=== PATIENT | male | born 1975 | race Two or more races ===

== ENCOUNTER 2018-12-30 12:14 | Emergency (ER) | payer BC ==
[2018-12-30] MEDS ORDERED: SODIUM CHLORIDE 0.9% 1,000 ML IV STA ×2 (13:57)
[2018-12-30 14:52] LABS: Basophils # (A) 0.1 k/uL (0-0.2); Basophils % (A) 1 %; Eosinophils # (A) 0.2 k/uL (0-0.7); Eosinophils % (A) 2 %; HCT 20.1 % (39.0-53.0); Hyperchromasia Slight; Lymphocytes # (A) 0.6 k/uL (1.0-4.8); Lymphocytes % (A) 7 %; MCH 28.9 pg (25.0-35.0); MCHC 34.5 g/dL (31.0-37.0); MCV 83.9 fL (80.0-100.0); Mean Platelet Volume 7.2; Monocytes # (A) 0.6 k/uL (0-1.0); Monocytes % (A) 7 %; Neutrophils # (A) 7.2 k/uL (1.3-7.7); Neutrophils % (A) 83 %; Platelet Count 279 k/uL (150-450); Poikilocytosis Slight; RDW 15.2 % (11.5-15.5); WBC 8.7 k/uL (3.8-10.6)
[2018-12-30 15:00] LABS: HGB 6.9 gm/dL (13.0-17.5)
[2018-12-30 15:02] LABS: Albumin 3.7 g/dL (3.5-5.0); Calcium 9.2 mg/dL (8.4-10.2); Magnesium 2.2 mg/dL (1.6-2.3); Potassium 4.5 mmol/L (3.5-5.1); Total Protein 6.4 g/dL (6.3-8.2)
[2018-12-30 15:07] LABS: Partial Thromboplastin Time 35.5 sec (22.0-30.0); Prothrombin Time 10.8 sec (9.0-12.0)
[2018-12-30 15:10] VITALS: RESP 16
--- NOTE | 2018-12-30 15:18 | XR ---
EXAMINATION TYPE: XR chest 2V DATE OF EXAM: 12/30/2018 COMPARISON: None HISTORY: 43-year-old male with chest pain TECHNIQUE: PA and lateral views FINDINGS: Left-sided double-lumen hemodialysis catheter with tips at the mid SVC level. Median sternotomy wires . Annuloplasty rings. Heart borderline enlarged. Diffuse interstitial and vascular densities within s mall effusions and posterior basilar patchy opacity. Embolization coils in the left upper quadrant. IMPRESSION: 1. Correlate for CHF weight summary vascular congestion. 2. Small effusions with adjacent atelectasis and/or consolidation.
--- NOTE | 2018-12-30 15:34 | ED ---
General Adult HPI <Wilner Pina - Last Filed: 12/30/18 16:34> - General Source: patient, RN notes reviewed, old records reviewed Mode of arrival: ambulatory Limitations: no limitations <Michelle Booth - Last Filed: 12/30/18 17:10> - General Chief complaint: Recheck/Abnormal Lab/Rx Stated complaint: Sent for blood transfusion Time Seen by Provider: 12/30/18 13:34 - History of Present Illness Initial comments: Patient is a 43-year-old male with extensive past medical history. He presents today was 2. of low hemoglobin after having his dialysis testing completed yesterday. He was gets dialysis Thursday and Thursday. 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 He had his mitral valve replaced on November 16 this past year, 2 months ago. Patient reports he's had some consultation since that time. Patient reports that he was admitted to [facility] oxalate one week ago for low hemoglobin. He was evaluated and had colonoscopy and upper endoscopy and had notification of the blood loss besides having it to be postsurgical. Patient reports that he's had no symptoms associated with his anemia at this time. Denies any chest pain or shortness of breath. (Michelle Booth) - Related Data Home Medications Medication Instructions Recorded Confirmed B Complex & C No.20/Folic Acid 1 mg PO DAILY 12/30/18 12/30/18 [Nephrocaps Softgel] Bumetanide 2 mg PO DAILY PRN 12/30/18 12/30/18 Darbepoetin Thompson [Aranesp] 25 mcg SQ DAILY PRN 12/30/18 12/30/18 Ferrous Sulfate [Feosol] 325 mg PO DAILY 12/30/18 12/30/18 Folic Acid 1 mg PO DAILY 12/30/18 12/30/18 Levothyroxine Sodium [Synthroid] 137 mcg PO DAILY 12/30/18 12/30/18 Magnesium Oxide [Mag-Ox] 800 mg PO DAILY 12/30/18 12/30/18 Sucralfate [Carafate] 1 gram PO QID 12/30/18 12/30/18 levETIRAcetam 500 mg PO BID 12/30/18 12/30/18 Allergies Allergy/AdvReac Type Severity Reaction Status Date / Time No Known Allergies Allergy Verified 12/30/18 13:59 Review of Systems ROS Other: All systems not noted in ROS Statement are negative. <Wilner Pina - Last Filed: 12/30/18 16:34> ROS Other: All systems not noted in ROS Statement are negative. <Michelle Booth - Last Filed: 12/30/18 17:10> ROS Statement: Those systems with pertinent positive or pertinent negative responses have been documented in the HPI. 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, and pt had mitral valve repair and then had renal and liver insufficiency after surgery History of Any Multi-Drug Resistant Organisms: None Reported Additional Past Surgical History / Comment(s): mitral valve repair Past Psychological History: No Psychological Hx Reported Smoking Status: Never smoker Past Alcohol Use History: None Reported Past Drug Use History: None Reported <LeobardoMichelle - Last Filed: 12/30/18 17:10> General Exam Limitations: no limitations General appearance: alert, in no apparent distress Head exam: Present: atraumatic, normocephalic, normal inspection Eye exam: Present: normal appearance, PERRL, EOMI. Absent: scleral icterus, conjunctival injection, periorbital swelling ENT exam: Present: normal exam, mucous membranes moist Neck exam: Present: normal inspection. Absent: tenderness, meningismus, lymphadenopathy <Michelle Booth - Last Filed: 12/30/18 17:10> - General Exam Comments Initial Comments: is a pale 43-year-old male. No symptoms at this time mother is in no distress. (Michelle Booth) Course <Wilner Pina - Last Filed: 12/30/18 16:34> Vital Signs 12/30/18 12/30/18 12/30/18 12:28 14:30 16:18 Temperature 97.8 F 97.9 F Pulse Rate 109 H 72 97 Respiratory 18 16 16 Rate Blood Pressure 125/75 161/110 122/65 O2 Sat by Pulse 100 98 100 Oximetry - Reevaluation(s) Reevaluation #1: 12/30/18 16:34 PA supervision: I proceeded [id number] evaluation the patient did discuss the findings with him and his family. He does present with complains of anemia. He was instructed by his physician or come the hospital for evaluation and possible blood transfusion. He was found to be anemic he will be receiving a blood transfusion no other issues or concerns at this time. He will be discharged after the transfusion. He does have follow-up with multiple physicians. (Wilner Pina) Medical Decision Making - Lab Data Result diagrams: 12/30/18 14:41 12/30/18 14:40 <Wilner Pina - Last Filed: 12/30/18 16:34> - Lab Data Result diagrams: 12/30/18 14:41 12/30/18 14:40 <Michelle Booth - Last Filed: 12/30/18 17:10> - Lab Data Lab Results 12/30/18 12/30/18 12/30/18 Range/Units 14:40 14:40 14:40 WBC (3.8-10.6) k/uL RBC (4.30-5.90) m/uL Hgb (13.0-17.5) gm/dL Hct (39.0-53.0) % MCV (80.0-100.0) fL MCH (25.0-35.0) pg MCHC (31.0-37.0) g/dL RDW (11.5-15.5) % Plt Count (150-450) k/uL Neutrophils % % Lymphocytes % % Monocytes % % Eosinophils % % Basophils % % Neutrophils # (1.3-7.7) k/uL Lymphocytes # (1.0-4.8) k/uL Monocytes # (0-1.0) k/uL Eosinophils # (0-0.7) k/uL Basophils # (0-0.2) k/uL Hyperchromasia Poikilocytosis PT 10.8 (9.0-12.0) sec INR 1.0 (<1.2) APTT 35.5 H (22.0-30.0) sec Sodium 140 (137-145) mmol/L Potassium 4.5 (3.5-5.1) mmol/L Chloride 98 (98-107) mmol/L Carbon Dioxide 33 H (22-30) mmol/L Anion Gap 9 mmol/L BUN 33 H (9-20) mg/dL Creatinine 2.26 H (0.66-1.25) mg/dL Est GFR (CKD-EPI)AfAm 39 (>60 ml/min/1.73 sqM) Est GFR (CKD-EPI)NonAf 34 (>60 ml/min/1.73 sqM) Glucose 81 (74-99) mg/dL Calcium 9.2 (8.4-10.2) mg/dL Magnesium 2.2 (1.6-2.3) mg/dL Total Bilirubin 2.0 H (0.2-1.3) mg/dL AST 20 (17-59) U/L ALT 19 L (21-72) U/L Alkaline Phosphatase 97 (38-126) U/L Troponin I (0.000-0.034) ng/mL Total Protein 6.4 (6.3-8.2) g/dL Albumin 3.7 (3.5-5.0) g/dL Blood Type A Positive Blood Type Confirm Blood Type Recheck No Previous Record Bld Type Recheck Status CABO Indicated Antibody Screen NEGATIVE Crossmatch See Detail Spec Expiration Date 01/02/2019 - 233912/30/18 12/30/18 12/30/18 Range/Units 14:40 14:41 14:55 WBC 8.7 (3.8-10.6) k/uL RBC 2.40 L (4.30-5.90) m/uL Hgb 6.9 L* (13.0-17.5) gm/dL Hct 20.1 L (39.0-53.0) % MCV 83.9 (80.0-100.0) fL MCH 28.9 (25.0-35.0) pg MCHC 34.5 (31.0-37.0) g/dL RDW 15.2 (11.5-15.5) % Plt Count 279 (150-450) k/uL Neutrophils % 83 % Lymphocytes % 7 % Monocytes % 7 % Eosinophils % 2 % Basophils % 1 % Neutrophils # 7.2 (1.3-7.7) k/uL Lymphocytes # 0.6 L (1.0-4.8) k/uL Monocytes # 0.6 (0-1.0) k/uL Eosinophils # 0.2 (0-0.7) k/uL Basophils # 0.1 (0-0.2) k/uL Hyperchromasia Slight Poikilocytosis Slight PT (9.0-12.0) sec INR (<1.2) APTT (22.0-30.0) sec Sodium (137-145) mmol/L Potassium (3.5-5.1) mmol/L Chloride (98-107) mmol/L Carbon Dioxide (22-30) mmol/L Anion Gap mmol/L BUN (9-20) mg/dL Creatinine (0.66-1.25) mg/dL Est GFR (CKD-EPI)AfAm (>60 ml/min/1.73 sqM) Est GFR (CKD-EPI)NonAf (>60 ml/min/1.73 sqM) Glucose (74-99) mg/dL Calcium (8.4-10.2) mg/dL Magnesium (1.6-2.3) mg/dL Total Bilirubin (0.2-1.3) mg/dL AST (17-59) U/L ALT (21-72) U/L Alkaline Phosphatase (38-126) U/L Troponin I <0.012 (0.000-0.034) ng/mL Total Protein (6.3-8.2) g/dL Albumin (3.5-5.0) g/dL Blood Type Blood Type Confirm A Positive Blood Type Recheck Bld Type Recheck Status Antibody Screen Crossmatch Spec Expiration Date Disposition <Wilner Pina - Last Filed: 12/30/18 16:34> Is patient prescribed a controlled substance at d/c from ED?: No Time of Disposition: 17:10 <Michelle Booth - Last Filed: 12/30/18 17:10> Clinical Impression: Anemia Disposition: HOME SELF-CARE Condition: Good Instructions (If sedation given, give patient instructions): Anemia (ED), Blood Transfusion (DC) Additional Instructions: Follow up with PCP and other appointments. Please return to ED if any alarming signs or symptoms occur. Referrals: Kelly Manzo MD [Primary Care Provider] - 1-2 days
[2018-12-30 19:19] VITALS: BP 120/57; PULSE 100; TEMP 98.5
== END 2018-12-30 19:26 | disposition home or self-care (01) ==
LOC: EC 12:14
DX: N18.9 Chronic kidney disease, unspecified (principal); D63.1 Anemia in chronic kidney disease; N99.0 Postprocedural (acute) (chronic) kidney failure; Z79.890 Hormone replacement therapy; Z79.899 Other long term (current) drug therapy; Z99.2 Dependence on renal dialysis; Z95.2 Presence of prosthetic heart valve; Z86.73 Personal history of transient ischemic attack (TIA), and cerebral infarction without residual deficits; Z87.19 Personal history of other diseases of the digestive system; Z86.79 Personal history of other diseases of the circulatory system; Z98.890 Other specified postprocedural states
CPT/HCPCS: 36415; 93005; 86900; 86901; 80053; 83735; 84484; 85025; 85610; 85730; 86850; 86920; 71046; 99284; 96360; P9016

== ENCOUNTER → 2019-01-05 | Outpatient (CLI) | payer BC | END | disposition home or self-care (01) | LOC: LABWHC1 15:26 | PROVIDERS: ATTEND Nurse Practitioner Family | DX: Z53.9 Procedure and treatment not carried out, unspecified reason (principal) | CPT/HCPCS: 86850; 86900; 86901; 86920 ==

== ENCOUNTER 2019-01-29 05:11 | Observation (INO) | payer BC ==
--- NOTE | 2019-01-29 05:40 | ED ---
Recheck HPI - General Source: patient Mode of arrival: ambulatory Limitations: no limitations - History of Present Illness Complaint: abnormal lab -: hour(s) Initial Visit For: other Returns Today for: Called Because of Abnormal Lab/Test Symptoms Since Prior Visit: no new symptoms Context: called for abnormal lab result Associated Symptoms: none <Kd Gonzales - Last Filed: 01/29/19 06:45> <Wilner Pina - Last Filed: 01/29/19 13:07> - General Chief Complaint: Recheck/Abnormal Lab/Rx Stated Complaint: sent by dr Aldridge-needs blood Time Seen by Provider: 01/29/19 05:24 - History of Present Illness Initial Comments: This patient is a 43-year-old man who presents after receiving a call that his hemoglobin was low. Patient has history of end-stage renal disease on hemodialysis after he had developed endocarditis. Patient states that he had his routine dialysis yesterday proximal 24 hrs. ago. He states that he received a call yesterday informing him that his hemoglobin was 6.9 and he should proceed to the hospital for transfusion. The patient states he is not having any symptoms. No dyspnea, diaphoresis, palpitations, lightheadedness or syncope. He has not noted any blood or dark tarry stools. (Kd Gonzales) - Related Data Home Medications Medication Instructions Recorded Confirmed B Complex & C No.20/Folic Acid 1 mg PO DAILY 12/30/18 01/29/19 [Nephrocaps Softgel] Darbepoetin Thompson [Aranesp] 25 mcg SQ Q7D PRN 12/30/18 01/29/19 Ferrous Sulfate [Feosol] 325 mg PO DAILY 12/30/18 01/29/19 Folic Acid 1 mg PO DAILY 12/30/18 01/29/19 Levothyroxine Sodium [Synthroid] 137 mcg PO DAILY 12/30/18 01/29/19 Magnesium Oxide [Mag-Ox] 800 mg PO BID 12/30/18 01/29/19 Sucralfate [Carafate] 1 gram PO QID 12/30/18 01/29/19 levETIRAcetam 500 mg PO BID 12/30/18 01/29/19 Aspirin EC [Ecotrin] 325 mg PO DAILY 01/29/19 01/29/19 Calcium Acetate [Phoslo] 667 mg PO TID 01/29/19 01/29/19 Melatonin 9 mg PO HS 01/29/19 01/29/19 Omeprazole 20 mg PO QAM 01/29/19 01/29/19 Sennosides-Docusate Sodium 1 tab PO BID 01/29/19 01/29/19 [Senokot-S] Allergies Allergy/AdvReac Type Severity Reaction Status Date / Time No Known Allergies Allergy Verified 01/29/19 08:52 Review of Systems ROS Other: All systems not noted in ROS Statement are negative. Constitutional: Denies: fever, chills Respiratory: Denies: cough, dyspnea Cardiovascular: Denies: chest pain, palpitations, syncope Gastrointestinal: Denies: abdominal pain, vomiting, diarrhea Musculoskeletal: Denies: back pain Skin: Denies: rash Neurological: Denies: headache <JanetKd - Last Filed: 01/29/19 06:45> ROS Other: All systems not noted in ROS Statement are negative. <Wilner Pina - Last Filed: 01/29/19 13:07> ROS Statement: Those systems with pertinent positive or pertinent negative responses have been documented in the HPI. 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 Absent: scleral icterus, conjunctival injection ENT exam: Present: normal oropharynx Respiratory exam: Present: normal lung sounds bilaterally. Absent: respiratory distress, wheezes, rales, rhonchi, stridor Cardiovascular Exam: Present: regular rate, normal rhythm, normal heart sounds, clicks. Absent: systolic murmur, diastolic murmur, rubs, gallop GI/Abdominal exam: Present: soft. Absent: distended, tenderness, guarding, rebound, rigid, mass Extremities exam: Present: normal inspection, normal capillary refill. Absent: pedal edema, calf tenderness Neurological exam: Present: alert Skin exam: Present: warm, dry, intact, pallor. Absent: rash <Kd Gonzales - Last Filed: 01/29/19 06:45> Course Vital Signs 01/29/19 01/29/19 01/29/19 05:18 08:57 09:06 Temperature 97.5 F L 98.0 F Pulse Rate 105 H 88 88 Respiratory 20 18 16 Rate Blood Pressure 111/54 112/61 110/60 O2 Sat by Pulse 100 100 100 Oximetry 01/29/19 01/29/19 10:00 11:00 Temperature Pulse Rate 89 84 Respiratory 16 16 Rate Blood Pressure 112/57 101/50 O2 Sat by Pulse 100 100 Oximetry Medical Decision Making - Lab Data Result diagrams: 01/29/19 05:46 01/29/19 05:46 <Kd Gonzales - Last Filed: 01/29/19 06:45> - Lab Data Result diagrams: 01/29/19 05:46 01/29/19 05:46 <Wilner Pina - Last Filed: 01/29/19 13:07> - Medical Decision Making The patient was originally 10 and evaluated was receive one unit of blood be discharged. Due to the antibody titers the patient blood red crosses having difficulty crossmatch is blood at this time I did discuss the case with him and with Dr. Escobar patient will be admitted for observation. (Wilner Pina) - Lab Data Lab Results 01/29/19 01/29/19 Range/Units 05:46 05:46 WBC 6.2 (3.8-10.6) k/uL RBC 2.33 L (4.30-5.90) m/uL Hgb 7.0 L (13.0-17.5) gm/dL Hct 20.3 L (39.0-53.0) % MCV 86.8 (80.0-100.0) fL MCH 30.1 (25.0-35.0) pg MCHC 34.7 (31.0-37.0) g/dL RDW 17.2 H (11.5-15.5) % Plt Count 149 L (150-450) k/uL Neutrophils % 77 % Lymphocytes % 12 % Monocytes % 6 % Eosinophils % 3 % Basophils % 1 % Neutrophils # 4.7 (1.3-7.7) k/uL Lymphocytes # 0.7 L (1.0-4.8) k/uL Monocytes # 0.4 (0-1.0) k/uL Eosinophils # 0.2 (0-0.7) k/uL Basophils # 0.1 (0-0.2) k/uL Hyperchromasia Slight Poikilocytosis Moderate Anisocytosis Slight Sodium 139 (137-145) mmol/L Potassium 3.9 (3.5-5.1) mmol/L Chloride 95 L (98-107) mmol/L Carbon Dioxide 35 H (22-30) mmol/L Anion Gap 9 mmol/L BUN 30 H (9-20) mg/dL Creatinine 2.41 H (0.66-1.25) mg/dL Est GFR (CKD-EPI)AfAm 36 (>60 ml/min/1.73 sqM) Est GFR (CKD-EPI)NonAf 31 (>60 ml/min/1.73 sqM) Glucose 168 H (74-99) mg/dL Calcium 9.8 (8.4-10.2) mg/dL Disposition Is patient prescribed a controlled substance at d/c from ED?: No <Kd Gonzales - Last Filed: 01/29/19 06:45> <Wilner Pina - Last Filed: 01/29/19 13:07> Clinical Impression: Anemia Disposition: ADMITTED IP TO THIS HOSP Condition: Stable Instructions (If sedation given, give patient instructions): Anemia (ED) Referrals: None,Stated [Primary Care Provider] - 1-2 days
[2019-01-29 06:02] LABS: Anisocytosis Slight; Basophils # (A) 0.1 k/uL (0-0.2); Basophils % (A) 1 %; Eosinophils # (A) 0.2 k/uL (0-0.7); Eosinophils % (A) 3 %; HCT 20.3 % (39.0-53.0); Hyperchromasia Slight; Lymphocytes # (A) 0.7 k/uL (1.0-4.8); Lymphocytes % (A) 12 %; MCH 30.1 pg (25.0-35.0); MCHC 34.7 g/dL (31.0-37.0); MCV 86.8 fL (80.0-100.0); Mean Platelet Volume 7.3; Monocytes # (A) 0.4 k/uL (0-1.0); Monocytes % (A) 6 %; Neutrophils # (A) 4.7 k/uL (1.3-7.7); Neutrophils % (A) 77 %; Platelet Count 149 k/uL (150-450); Poikilocytosis Moderate; RBC 2.33 m/uL (4.30-5.90); RDW 17.2 % (11.5-15.5); WBC 6.2 k/uL (3.8-10.6)
[2019-01-29 06:16] LABS: Calcium 9.8 mg/dL (8.4-10.2); Potassium 3.9 mmol/L (3.5-5.1)
[2019-01-29] MEDS ORDERED: NALOXONE 0.4 MG/ML 1 ML VIAL IV PRN (13:07)
[2019-01-29] MEDS ORDERED: DARBEPOETIN ALFA 25 MCG/0.42 ML SYRINGE SQ PRN (13:08)
[2019-01-29] MEDS: CALCIUM ACETATE 667 MG TAB PO SCH (16:59)
[2019-01-29] MEDS: SUCRALFATE 1 GM TAB PO SCH ×2 (16:59→21:38)
[2019-01-29 17:11] LABS: Glucose,Whole Blood 168 mg/dL (75-99)
--- NOTE | 2019-01-29 17:42 | P.HPIM ---
History of Present Illness H&P Date: 01/29/19 Chief Complaint: Blood transfusion 43-year-old male with PMH of endocarditis post mitral valve repair in September at [facility] complicated by kidney and liver failure, LVAD placement and GI bleed from heparin needing coiling presents the ED after being called from his nephrology clinic and told to come to the hospital to receive blood for a low hemoglobin of 6.8. Patient has no complaints. He gets dialysis on a Thursday schedule. His rfid developer is Dr. Aldridge. He denies any headaches, lower extremity edema, nausea or vomiting, fever or chills, cough, chest pain or shortness of breath, palpitations, changes in urination or bowel habits. No changes in appetite or weight. Patient denies any dizziness, numbness/weakness/tingling of the extremities. He does not smoke cigarettes. He denies any alcohol or drug use. In the ED, vital signs were stable. CBC showed hemoglobin of 7 and platelet count 149. CMP showed chloride of 95, bicarbonate of 35, BUN 30, creatinine 2.41, glucose 168. Patient is admitted for anemia requiring 1 unit of PRBC. Review of Systems Pertinent positives and negatives as discussed in HPI, a complete review of systems was performed and all other systems are negative. 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, and pt had mitral valve repair and then had renal and liver insufficiency after surgery; [facility] History of Any Multi-Drug Resistant Organisms: None Reported Additional Past Surgical History / Comment(s): Mitral valve repair July 2018; artery repair during mitral valve repair Past Anesthesia/Blood Transfusion Reactions: No Reported Reaction Past Psychological History: No Psychological Hx Reported Smoking Status: Never smoker Past Alcohol Use History: None Reported Past Drug Use History: None Reported Medications and Allergies Home Medications Medication Instructions Recorded Confirmed Type B Complex & C No.20/Folic Acid 1 mg PO DAILY 12/30/18 01/29/19 History [Nephrocaps Softgel] Darbepoetin Thompson [Aranesp] 25 mcg SQ Q7D PRN 12/30/18 01/29/19 History Ferrous Sulfate [Feosol] 325 mg PO DAILY 12/30/18 01/29/19 History Folic Acid 1 mg PO DAILY 12/30/18 01/29/19 History Levothyroxine Sodium [Synthroid] 137 mcg PO DAILY 12/30/18 01/29/19 History Magnesium Oxide [Mag-Ox] 800 mg PO BID 12/30/18 01/29/19 History Sucralfate [Carafate] 1 gram PO QID 12/30/18 01/29/19 History levETIRAcetam 500 mg PO BID 12/30/18 01/29/19 History Aspirin EC [Ecotrin] 325 mg PO DAILY 01/29/19 01/29/19 History Calcium Acetate [Phoslo] 667 mg PO TID 01/29/19 01/29/19 History Melatonin 9 mg PO HS 01/29/19 01/29/19 History Omeprazole 20 mg PO QAM 01/29/19 01/29/19 History Sennosides-Docusate Sodium 1 tab PO BID 01/29/19 01/29/19 History [Senokot-S] Allergies Allergy/AdvReac Type Severity Reaction Status Date / Time No Known Allergies Allergy Verified 01/29/19 08:52 Physical Exam Vitals: Vital Signs Temp Pulse Pulse Resp BP BP Pulse Ox 01/29/19 14:30 97.0 F L 94 20 111/55 100 01/29/19 13:00 98.2 F 86 18 108/54 100 01/29/19 12:00 86 18 103/48 100 01/29/19 11:00 84 16 101/50 100 01/29/19 10:00 89 16 112/57 100 01/29/19 09:06 88 16 110/60 100 01/29/19 08:57 98.0 F 88 18 112/61 100 01/29/19 05:18 97.5 F L 105 H 20 111/54 100 Intake and Output 01/29/19 01/29/19 01/29/19 06:59 14:59 22:59 Other: Weight 77.111 kg General: [non toxic], [no distress], [appears at stated age] Derm: [warm], [dry] Head: [atraumatic], [normocephalic], [symmetric] Eyes: [EOMI], [no lid lag], [anicteric sclera] Mouth: [no lip lesion], [mucus membranes moist] Cardiovascular: [S1S2 reg], [no murmur], [positive posterior tibial pulse bilateral], [left-sided chest port] Lungs: [CTA bilateral], [no rhonchi, no rales] , [no accessory muscle use] Abdominal: [soft], [ nontender to palpation], [no guarding], [no appreciable organomegaly] Ext: [no gross muscle atrophy], [no edema], [no contractures] Neuro: [ CN II-XI grossly intact], [no focal neuro deficits] Psych: [Alert], [oriented], [appropriate affect] Results CBC & Chem 7: 01/29/19 05:46 01/29/19 05:46 Labs: Abnormal Lab Results - Last 24 Hours (Table) 01/29/19 01/29/19 01/29/19 Range/Units 05:46 05:46 10:00 RBC 2.33 L (4.30-5.90) m/uL Hgb 7.0 L (13.0-17.5) gm/dL Hct 20.3 L (39.0-53.0) % RDW 17.2 H (11.5-15.5) % Plt Count 149 L (150-450) k/uL Lymphocytes # 0.7 L (1.0-4.8) k/uL Chloride 95 L (98-107) mmol/L Carbon Dioxide 35 H (22-30) mmol/L BUN 30 H (9-20) mg/dL Creatinine 2.41 H (0.66-1.25) mg/dL Glucose 168 H (74-99) mg/dL POC Glucose (mg/dL) (75-99) mg/dL Crossmatch See Detail 01/29/19 Range/Units 17:09 RBC (4.30-5.90) m/uL Hgb (13.0-17.5) gm/dL Hct (39.0-53.0) % RDW (11.5-15.5) % Plt Count (150-450) k/uL Lymphocytes # (1.0-4.8) k/uL Chloride (98-107) mmol/L Carbon Dioxide (22-30) mmol/L BUN (9-20) mg/dL Creatinine (0.66-1.25) mg/dL Glucose (74-99) mg/dL POC Glucose (mg/dL) 168 H (75-99) mg/dL Crossmatch Thrombosis Risk Factor Assmnt - Choose All That Apply Each Factor Represents 1 point: Age 41-60 years Thrombosis Risk Factor Assessment Total Risk Factor Score: 1 Thrombosis Risk Factor Assessment Level: Low Risk Assessment and Plan Assessment: Assessment and plan Anemia with hemoglobin of 7 likely from prolonged hospitalization in September complicated with GI bleed History of endocarditis with mitral valve repair Thrombocytopenia ESRD on HD Thursday schedule Hemoglobin 7.0. Normocytic. Likely from prolonged hospitalization in September that was complicated by GI bleed. Plans: 1 unit PRBC. Continue ferrous sulfate. Repeat CBC after transfusion. Platelet count 149. Likely due to ESRD. No signs of bleeding. Plans: Repeat CBC after transfusion. Plans: Consult nephrology for HD on a Thursday schedule. DVT prophylaxis: [SCD boots] Discussed with: [Patient and mother] Anticipated discharge: [Home] Anticipated discharge place: [Tomorrow] A total of [30] minutes was spent on the care of this complex patient more than 50% of the time was spent in counseling and care coordination. Patient reiterates wanting to remain full code at this time. Patient names his mom Reina decision-maker indicates that he can't make decisions for himself.
[2019-01-29 20:44] LABS: Glucose,Whole Blood 138 mg/dL (75-99)
[2019-01-29] MEDS ORDERED: MELATONIN 3 MG TABLET PO SCH (21:00)
[2019-01-29] MEDS: MAGNESIUM OXIDE 400 MG TAB PO SCH (21:37)
[2019-01-29] MEDS: levETIRAcetam 500 MG TAB PO SCH (21:38)
[2019-01-29] MEDS: SENNOSIDES-DOCUSATE SODIUM 1 EACH TAB PO SCH (21:38)
[2019-01-30 04:52] VITALS: BP 102/55; PULSE 84; RESP 18; TEMP 98.3
[2019-01-30] MEDS ORDERED: LEVOTHYROXINE 137 MCG TAB PO SCH (06:30)
[2019-01-30 07:02] LABS: Glucose,Whole Blood 90 mg/dL (75-99)
[2019-01-30] MEDS ORDERED: PANTOPRAZOLE 40 MG TABLET PO SCH (07:30)
[2019-01-30] MEDS: SENNOSIDES-DOCUSATE SODIUM 1 EACH TAB PO SCH (07:57)
[2019-01-30] MEDS: SUCRALFATE 1 GM TAB PO SCH (07:57)
[2019-01-30] MEDS: CALCIUM ACETATE 667 MG TAB PO SCH (07:57)
[2019-01-30] MEDS: MAGNESIUM OXIDE 400 MG TAB PO SCH (07:57)
[2019-01-30] MEDS: levETIRAcetam 500 MG TAB PO SCH (07:58)
--- NOTE | 2019-01-30 08:57 | P.DS ---
Providers Date of admission: 01/29/19 13:07 Expected date of discharge: 01/30/19 Attending physician: Benigno Escobar MD Primary care physician: Stated None Hospital Course: 43-year-old male with PMH of endocarditis post mitral valve repair in September at [facility] complicated by kidney and liver failure, LVAD placement and GI bleed from heparin needing coiling presents the ED after being called from his nephrology clinic and told to come to the hospital to receive blood for a low hemoglobin of 6.8. Patient has no complaints. He gets dialysis on a Thursday schedule. His elevated work platform operator is Dr. Aldridge. He denies any headaches, lower extremity edema, nausea or vomiting, fever or chills, cough, chest pain or shortness of breath, palpitations, changes in urination or bowel habits. No changes in appetite or weight. Patient denies any dizziness, numbness/weakness/tingling of the extremities. He does not smoke cigarettes. He denies any alcohol or drug use. In the ED, vital signs were stable. CBC showed hemoglobin of 7 and platelet count 149. CMP showed chloride of 95, bicarbonate of 35, BUN 30, creatinine 2.41, glucose 168. Patient is admitted for anemia requiring 1 unit of PRBC. Patient denied any melena. Patient denies any hematochezia or hematuria. Patient denies any bright red blood per rectum. 1 unit of PRBC was transfused without any complications. Repeat hemoglobin is ordered prior to discharge. Patient seen and examined. No acute events overnight. patient denies any complications from blood transfusions. He denies any chest pain, shortness of breath or palpitations. No nausea or vomiting. No fever or chills. General: [non toxic], [no distress], [appears at stated age] Derm: [warm], [dry] Head: [atraumatic], [normocephalic], [symmetric] Eyes: [EOMI], [no lid lag], [anicteric sclera] Mouth: [no lip lesion], [mucus membranes moist] Cardiovascular: [S1S2 reg], [no murmur], [positive posterior tibial pulse bilateral], [left-sided chest port] Lungs: [CTA bilateral], [no rhonchi, no rales] , [no accessory muscle use] Abdominal: [soft], [ nontender to palpation], [no guarding], [no appreciable organomegaly] Ext: [no gross muscle atrophy], [no edema], [no contractures] Neuro: [no focal neuro deficits] Psych: [Alert], [oriented], [appropriate affect] Assessment and plan Anemia with hemoglobin of 7 likely from prolonged hospitalization in September complicated with GI bleed History of endocarditis with mitral valve repair Thrombocytopenia ESRD on HD Thursday schedule Hemoglobin 7.0. Normocytic. Likely from prolonged hospitalization in September that was complicated by GI bleed. Plans: 1 unit PRBC. Continue ferrous sulfate. Repeat CBC after transfusion. Platelet count 149. Likely due to ESRD. No signs of bleeding. Plans: Repeat CBC after transfusion. Plans: Consult nephrology for HD on a Thursday schedule. [Repeat hemoglobin pending. DC after CBC returns.] Patient Condition at Discharge: Stable Plan - Discharge Summary New Discharge Prescriptions: Continue Magnesium Oxide [Mag-Ox] 800 mg PO BID Levothyroxine Sodium [Synthroid] 137 mcg PO DAILY levETIRAcetam 500 mg PO BID Folic Acid 1 mg PO DAILY Ferrous Sulfate [Iron (65 MG Elemental)] 325 mg PO DAILY Darbepoetin Thompson [Aranesp] 25 mcg SQ Q7D PRN PRN Reason: DIALYSIS DAYS Sucralfate [Carafate] 1 gram PO QID B Complex & C No.20/Folic Acid [Nephrocaps Softgel] 1 mg PO DAILY Calcium Acetate [PhosLo] 667 mg PO TID Sennosides-Docusate Sodium [Senokot-S] 1 tab PO BID Omeprazole 20 mg PO QAM Melatonin 9 mg PO HS Aspirin EC [Ecotrin] 325 mg PO DAILY Discharge Medication List B Complex & C No.20/Folic Acid [Nephrocaps Softgel] 1 mg PO DAILY 12/30/18 [History] Darbepoetin Thompson [Aranesp] 25 mcg SQ Q7D PRN 12/30/18 [History] Ferrous Sulfate [Iron (65 MG Elemental)] 325 mg PO DAILY 12/30/18 [History] Folic Acid 1 mg PO DAILY 12/30/18 [History] Levothyroxine Sodium [Synthroid] 137 mcg PO DAILY 12/30/18 [History] Magnesium Oxide [Mag-Ox] 800 mg PO BID 12/30/18 [History] Sucralfate [Carafate] 1 gram PO QID 12/30/18 [History] levETIRAcetam 500 mg PO BID 12/30/18 [History] Aspirin EC [Ecotrin] 325 mg PO DAILY 01/29/19 [History] Calcium Acetate [PhosLo] 667 mg PO TID 01/29/19 [History] Melatonin 9 mg PO HS 01/29/19 [History] Omeprazole 20 mg PO QAM 01/29/19 [History] Sennosides-Docusate Sodium [Senokot-S] 1 tab PO BID 01/29/19 [History] Follow up Appointment(s)/Referral(s): None,Stated [Primary Care Provider] - 1-2 days Carlos Aldridge DO [STAFF PHYSICIAN] - 1 Week Patient Instructions/Handouts: Anemia (ED) Activity/Diet/Wound Care/Special Instructions: diet: Renal Follow-up PCP within 3 days of discharge. Follow-up nephrology within 1 week of discharge. Discharge Disposition: HOME SELF-CARE
[2019-01-30] MEDS ORDERED: FOLIC ACID 1 MG TAB PO SCH (09:00)
[2019-01-30] MEDS ORDERED: FOLIC ACID-VIT B COMPLEX-VIT C 1 CAP PO SCH (09:00)
[2019-01-30] MEDS ORDERED: ASPIRIN 325 MG TAB PO SCH (09:00)
[2019-01-30] MEDS ORDERED: FERROUS SULFATE 325 MG TAB PO SCH (09:00)
[2019-01-30 09:30] LABS: Anisocytosis Slight; HCT 21.1 % (39.0-53.0); HGB 7.4 gm/dL (13.0-17.5); MCH 30.6 pg (25.0-35.0); MCHC 34.8 g/dL (31.0-37.0); Mean Platelet Volume 6.4; Platelet Count 136 k/uL (150-450); Poikilocytosis Moderate; RDW 16.7 % (11.5-15.5); WBC 5.8 k/uL (3.8-10.6)
== END 2019-01-30 10:30 | disposition home or self-care (01) ==
LOC: EC 05:11 → 4MS4W 13:07
PROVIDERS: ADMIT Family Medicine; ATTEND Family Medicine
DX: D64.9 Anemia, unspecified (principal); N18.6 End stage renal disease; K72.90 Hepatic failure, unspecified without coma; D69.6 Thrombocytopenia, unspecified; Z99.2 Dependence on renal dialysis; Z79.890 Hormone replacement therapy; Z79.899 Other long term (current) drug therapy; Z79.82 Long term (current) use of aspirin; Z86.73 Personal history of transient ischemic attack (TIA), and cerebral infarction without residual deficits; Z86.79 Personal history of other diseases of the circulatory system
CPT/HCPCS: 99284; 36415; 86900; 86901; 80048; 85025; 85027; 86850; 86920; 86870 ×2; 86880 ×2; 86885; G0378 ×2; P9016

== ENCOUNTER 2019-01-31 10:55 | Inpatient (IN) | payer BC ==
[2019-01-31] MEDS ORDERED: SODIUM CHLORIDE 0.9% 1,000 ML IV STA (11:28)
[2019-01-31] MEDS ORDERED: PANTOPRAZOLE 40 MG/10 ML VIAL IVP STA (11:28)
[2019-01-31] MEDS ORDERED: OCTREOTIDE 100 MCG/ML INJ IVP STA (11:28)
[2019-01-31] MEDS ORDERED: ONDANSETRON 4 MG/2 ML VIAL IVP STA (11:28)
--- NOTE | 2019-01-31 11:59 | ED ---
GI Bleed HPI - General Source: patient, RN notes reviewed Mode of arrival: wheelchair Limitations: no limitations <Chapin Chris - Last Filed: 01/31/19 13:32> <Jake Edwards - Last Filed: 01/31/19 14:10> - General Chief complaint: GI Bleed Stated complaint: Puking blood Time Seen by Provider: 01/31/19 11:13 - History of Present Illness Initial comments: This a 43-year-old male presents emergency Department chief complaint of hematemesis. Patient states that he was here 4 days ago for a transfusion secondary anemia. Patient states he received a blood and states he went home states that he felt okay but then he slowly developed pain last night and worsening pain is epigastric region which she states she's vomited dark black looking material. Patient has epigastric discomfort. Patient does have a history of liver failure, renal failure from when he had surgery on his mitral valve from endocarditis which was never found a cause for. Patient is on dialysis Thursday he states he missed his appointment today. Patient does admit that he's had a history of varices in which she had a corne al. Patient does take current Carafate. (Chapin Chris) - Related Data Home Medications Medication Instructions Recorded Confirmed B Complex & C No.20/Folic Acid 1 mg PO HS 12/30/18 01/31/19 [Nephrocaps Softgel] Darbepoetin Thompson [Aranesp] 25 mcg SQ Q7D PRN 12/30/18 01/31/19 Ferrous Sulfate [Iron (65 MG 325 mg PO DAILY 12/30/18 01/31/19 Elemental)] Folic Acid 1 mg PO DAILY 12/30/18 01/31/19 Levothyroxine Sodium [Synthroid] 137 mcg PO DAILY 12/30/18 01/31/19 Magnesium Oxide [Mag-Ox] 800 mg PO BID 12/30/18 01/31/19 Sucralfate [Carafate] 1 gram PO QID 12/30/18 01/31/19 levETIRAcetam 500 mg PO BID 12/30/18 01/31/19 Aspirin EC [Ecotrin] 325 mg PO DAILY 01/29/19 01/31/19 Calcium Acetate [PhosLo] 667 mg PO TID 01/29/19 01/31/19 Melatonin 9 mg PO HS 01/29/19 01/31/19 Omeprazole 20 mg PO QAM 01/29/19 01/31/19 Sennosides-Docusate Sodium 1 tab PO BID 01/29/19 01/31/19 [Senokot-S] Bumetanide [BUMEX] 2 mg PO QID 01/31/19 01/31/19 Allergies Allergy/AdvReac Type Severity Reaction Status Date / Time No Known Allergies Allergy Verified 01/31/19 11:37 Review of Systems ROS Other: All systems not noted in ROS Statement are negative. <Chapin Chris - Last Filed: 01/31/19 13:32> ROS Other: All systems not noted in ROS Statement are negative. <Jake Edwards - Last Filed: 01/31/19 14:10> ROS Statement: Those systems with pertinent positive or pertinent negative responses have been documented in the HPI. 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, and pt had mitral valve repair and then had renal and liver insufficiency after surgery; [facility] History of Any Multi-Drug Resistant Organisms: None Reported Additional Past Surgical History / Comment(s): Mitral valve repair July 2018; artery repair during mitral valve repair Past Anesthesia/Blood Transfusion Reactions: No Reported Reaction Past Psychological History: No Psychological Hx Reported Smoking Status: Never smoker Past Alcohol Use History: None Reported Past Drug Use History: None Reported <Chapin Chris - Last Filed: 01/31/19 13:32> General Exam Limitations: no limitations General appearance: alert, in no apparent distress Head exam: Present: atraumatic, normocephalic, normal inspection Eye exam: Present: normal appearance, PERRL, EOMI, scleral icterus. Absent: conjunctival injection, periorbital swelling Respiratory exam: Present: normal lung sounds bilaterally. Absent: respiratory distress, wheezes, rales, rhonchi, stridor Cardiovascular Exam: Present: regular rate, normal rhythm, normal heart sounds. Absent: systolic murmur, diastolic murmur, rubs, gallop, clicks GI/Abdominal exam: Present: soft, tenderness (Mild epigastric), normal bowel sounds. Absent: distended, guarding, rebound, rigid Back exam: Absent: CVA tenderness (R), CVA tenderness (L) Skin exam: Present: warm, dry, intact. Absent: normal color (Icterus), rash <Chapin Chris - Last Filed: 01/31/19 13:32> Course Vital Signs 01/31/19 01/31/19 01/31/19 11:05 11:30 12:00 Temperature 98.2 F Pulse Rate 85 81 77 Respiratory 17 21 23 Rate Blood Pressure 123/60 127/69 122/64 O2 Sat by Pulse 100 100 99 Oximetry 01/31/19 01/31/19 01/31/19 12:30 13:00 13:30 Temperature Pulse Rate 76 73 73 Respiratory 20 22 18 Rate Blood Pressure 124/63 124/61 125/60 O2 Sat by Pulse 99 100 100 Oximetry Medical Decision Making - Lab Data Result diagrams: 01/31/19 11:23 01/31/19 11:23 <Chapin Chris - Last Filed: 01/31/19 13:32> - Lab Data Result diagrams: 01/31/19 11:23 01/31/19 11:23 <Jake Edwards - Last Filed: 01/31/19 14:10> - Medical Decision Making Lab work shows elevated liver functions with a bilirubin worsen prior. Patient felt that his jaundice was improving. Patient's hemoglobin is improved though he was recently transfused. Patient had what is possible coffee-ground emesis. Patient does have known varices. Patient will be admitted for further evaluation. (Chapin Chris) Case discussed with practitioner Chapin. Chart and results reviewed. Case also discussed with Dr. estrella, who will admit covering for hospital call. GI will be placed on consult. (Jake Edwards) - Lab Data Lab Results 01/31/19 01/31/19 01/31/19 Range/Units 11:23 11:23 11:23 WBC 9.7 (3.8-10.6) k/uL RBC 2.87 L (4.30-5.90) m/uL Hgb 8.9 L D (13.0-17.5) gm/dL Hct 24.8 L (39.0-53.0) % MCV 86.3 (80.0-100.0) fL MCH 31.0 (25.0-35.0) pg MCHC 36.0 (31.0-37.0) g/dL RDW 17.1 H (11.5-15.5) % Plt Count 177 (150-450) k/uL Neutrophils % 89 % Lymphocytes % 5 % Monocytes % 5 % Eosinophils % 1 % Basophils % 0 % Neutrophils # 8.7 H (1.3-7.7) k/uL Lymphocytes # 0.5 L (1.0-4.8) k/uL Monocytes # 0.4 (0-1.0) k/uL Eosinophils # 0.1 (0-0.7) k/uL Basophils # 0.0 (0-0.2) k/uL Hyperchromasia Slight Poikilocytosis Moderate Anisocytosis Slight PT (9.0-12.0) sec INR (<1.2) APTT (22.0-30.0) sec Sodium 142 (137-145) mmol/L Potassium 4.2 (3.5-5.1) mmol/L Chloride 98 (98-107) mmol/L Carbon Dioxide 32 H (22-30) mmol/L Anion Gap 12 mmol/L BUN 41 H (9-20) mg/dL Creatinine 3.12 H (0.66-1.25) mg/dL Est GFR (CKD-EPI)AfAm 26 (>60 ml/min/1.73 sqM) Est GFR (CKD-EPI)NonAf 23 (>60 ml/min/1.73 sqM) Glucose 124 H (74-99) mg/dL Plasma Lactic Acid Miles 1.0 (0.7-2.0) mmol/L Calcium 10.4 H (8.4-10.2) mg/dL Magnesium 2.6 H (1.6-2.3) mg/dL Total Bilirubin 12.7 H (0.2-1.3) mg/dL AST 645 H (17-59) U/L ALT 554 H (21-72) U/L Alkaline Phosphatase 370 H (38-126) U/L Troponin I (0.000-0.034) ng/mL Total Protein 7.7 (6.3-8.2) g/dL Albumin 4.5 (3.5-5.0) g/dL Lipase 190 (23-300) U/L 01/31/19 01/31/19 Range/Units 11:23 11:23 WBC (3.8-10.6) k/uL RBC (4.30-5.90) m/uL Hgb (13.0-17.5) gm/dL Hct (39.0-53.0) % MCV (80.0-100.0) fL MCH (25.0-35.0) pg MCHC (31.0-37.0) g/dL RDW (11.5-15.5) % Plt Count (150-450) k/uL Neutrophils % % Lymphocytes % % Monocytes % % Eosinophils % % Basophils % % Neutrophils # (1.3-7.7) k/uL Lymphocytes # (1.0-4.8) k/uL Monocytes # (0-1.0) k/uL Eosinophils # (0-0.7) k/uL Basophils # (0-0.2) k/uL Hyperchromasia Poikilocytosis Anisocytosis PT 10.5 (9.0-12.0) sec INR 1.0 (<1.2) APTT 28.5 (22.0-30.0) sec Sodium (137-145) mmol/L Potassium (3.5-5.1) mmol/L Chloride (98-107) mmol/L Carbon Dioxide (22-30) mmol/L Anion Gap mmol/L BUN (9-20) mg/dL Creatinine (0.66-1.25) mg/dL Est GFR (CKD-EPI)AfAm (>60 ml/min/1.73 sqM) Est GFR (CKD-EPI)NonAf (>60 ml/min/1.73 sqM) Glucose (74-99) mg/dL Plasma Lactic Acid Miles (0.7-2.0) mmol/L Calcium (8.4-10.2) mg/dL Magnesium (1.6-2.3) mg/dL Total Bilirubin (0.2-1.3) mg/dL AST (17-59) U/L ALT (21-72) U/L Alkaline Phosphatase (38-126) U/L Troponin I <0.012 (0.000-0.034) ng/mL Total Protein (6.3-8.2) g/dL Albumin (3.5-5.0) g/dL Lipase (23-300) U/L Disposition <Chapin Chris - Last Filed: 01/31/19 13:32> <Jake Edwards - Last Filed: 01/31/19 14:10> Clinical Impression: Jaundice, Coffee ground emesis, Upper GI bleed, Anemia, Renal failure Disposition: ADMITTED IP TO THIS HOSP Condition: Serious Referrals: Kelly Manzo MD [Primary Care Provider] - 1-2 days
[2019-01-31 12:19] LABS: Anisocytosis Slight; Basophils % (A) 0 %; Eosinophils # (A) 0.1 k/uL (0-0.7); Eosinophils % (A) 1 %; HCT 24.8 % (39.0-53.0); Hyperchromasia Slight; Lymphocytes # (A) 0.5 k/uL (1.0-4.8); Lymphocytes % (A) 5 %; MCV 86.3 fL (80.0-100.0); Monocytes # (A) 0.4 k/uL (0-1.0); Monocytes % (A) 5 %; Neutrophils # (A) 8.7 k/uL (1.3-7.7); Neutrophils % (A) 89 %; Platelet Count 177 k/uL (150-450); Poikilocytosis Moderate; RBC 2.87 m/uL (4.30-5.90); RDW 17.1 % (11.5-15.5); WBC 9.7 k/uL (3.8-10.6)
[2019-01-31 12:26] LABS: HGB 8.9 gm/dL (13.0-17.5)
[2019-01-31 12:27] LABS: Partial Thromboplastin Time 28.5 sec (22.0-30.0); Prothrombin Time 10.5 sec (9.0-12.0)
[2019-01-31 12:32] LABS: Albumin 4.5 g/dL (3.5-5.0); Calcium 10.4 mg/dL (8.4-10.2); Magnesium 2.6 mg/dL (1.6-2.3); Potassium 4.2 mmol/L (3.5-5.1); Total Bilirubin 12.7 mg/dL (0.2-1.3); Total Protein 7.7 g/dL (6.3-8.2)
[2019-01-31] MEDS ORDERED: NALOXONE 0.4 MG/ML 1 ML VIAL IV PRN (13:34)
[2019-01-31] MEDS ORDERED: DARBEPOETIN ALFA 25 MCG/0.42 ML SYRINGE SQ PRN (22:19)
--- NOTE | 2019-01-31 22:49 | P.HPIM ---
History of Present Illness H&P Date: 01/31/19 Chief Complaint: Coffee-ground emesis Patient is a 42-year-old male with a known history of mitral valve repair in September 2018 at [facility] due to infected endocarditis complicated by LVAD placement, acute kidney injury requiring hemodialysis currently Thursday and Thursday, liver failure, GI bleed due to heparin requiring coiling surgery, who is currently on follow-up with nephrology in the clinic came to ER with complaints of epigastric abdominal pain and coffee-ground emesis after reaching home today. Patient was admitted to the hospital on 01/29/2019 due to low hemoglobin 7.0, was sent from nephrology clinic. Patient was discharged from the hospital yesterday morning after transfusion with 1 unit of PRBC and symptomatic improvement. Patient says that he went home and felt okay yesterday and last night started having epigastric abdominal pain and started having vomiting with dark colored blood. Patient became came back to the hospital this morning. Patient follows with Dr. Aldridge as an outpatient. Plan patient otherwise denied any complaints of chest pain or shortness of breath. Does have nausea and source of vomiting currently. No headache or dizziness or lightheadedness. No complaints of diarrhea. Denied having dark stools. No dysuria or hematuria. No fever no chills. Patient's bilirubin was found to be 12 on admission AST ALT and alk phos levels elevated. Lipase within normal limits. Hemoglobin level 8.9 Elevated BUN and creatinine level. Patient denied any alcohol abuse or any history of hepatitis C. Review of Systems Constitutional: Patient denies any fever or chills . No generalized weakness or weight loss. Abdomen: Patient does have nausea and coffee-ground emesis. Epigastric abdominal discomfort. Cardiovascular: Patient denies any chest pain or short of breath no palpitations. Respiratory: patient denied any cough is from production. No shortness of breath Neurologic: Patient denied any numbness or tingling headache. Musculoskeletal: Patient denies any complaints of joint swelling or deformity. Skin: Negative Psychiatric: Negative Endocrine: No heat or cold intolerance. No recent weight gain. Genitourinary: No dysuria or hematuria. All other 14 point ROS negative except the above 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, and pt had mitral valve repair and then had renal and liver insufficiency after surgery; [facility] History of Any Multi-Drug Resistant Organisms: None Reported Additional Past Surgical History / Comment(s): Mitral valve repair July 2018; artery repair during mitral valve repair Past Anesthesia/Blood Transfusion Reactions: No Reported Reaction Past Psychological History: No Psychological Hx Reported Smoking Status: Never smoker Past Alcohol Use History: None Reported Past Drug Use History: None Reported Medications and Allergies Home Medications Medication Instructions Recorded Confirmed Type B Complex & C No.20/Folic Acid 1 mg PO HS 12/30/18 01/31/19 History [Nephrocaps Softgel] Darbepoetin Thompson [Aranesp] 25 mcg SQ Q7D PRN 12/30/18 01/31/19 History Ferrous Sulfate [Iron (65 MG 325 mg PO DAILY 12/30/18 01/31/19 History Elemental)] Folic Acid 1 mg PO DAILY 12/30/18 01/31/19 History Levothyroxine Sodium [Synthroid] 137 mcg PO DAILY 12/30/18 01/31/19 History Magnesium Oxide [Mag-Ox] 800 mg PO BID 12/30/18 01/31/19 History Sucralfate [Carafate] 1 gram PO QID 12/30/18 01/31/19 History levETIRAcetam 500 mg PO BID 12/30/18 01/31/19 History Aspirin EC [Ecotrin] 325 mg PO DAILY 01/29/19 01/31/19 History Calcium Acetate [PhosLo] 667 mg PO TID 01/29/19 01/31/19 History Melatonin 9 mg PO HS 01/29/19 01/31/19 History Omeprazole 20 mg PO QAM 01/29/19 01/31/19 History Sennosides-Docusate Sodium 1 tab PO BID 01/29/19 01/31/19 History [Senokot-S] Bumetanide [BUMEX] 2 mg PO QID 01/31/19 01/31/19 History Allergies Allergy/AdvReac Type Severity Reaction Status Date / Time No Known Allergies Allergy Verified 01/31/19 11:37 Physical Exam Vitals: Vital Signs Temp Pulse Resp BP Pulse Ox 01/31/19 19:50 71 18 124/61 99 01/31/19 19:00 70 23 140/68 100 01/31/19 18:30 78 19 127/64 100 01/31/19 18:00 75 17 124/63 98 01/31/19 17:30 69 19 125/62 99 01/31/19 17:00 72 21 126/61 01/31/19 16:30 73 23 125/63 98 01/31/19 16:00 75 20 127/64 99 01/31/19 15:30 78 19 127/63 92 L 01/31/19 15:00 75 15 122/61 95 01/31/19 14:30 73 18 128/64 99 01/31/19 14:00 71 17 135/71 89 L 01/31/19 13:30 73 18 125/60 100 01/31/19 13:00 73 22 124/61 100 01/31/19 12:30 76 20 124/63 99 01/31/19 12:00 77 23 122/64 99 01/31/19 11:30 81 21 127/69 100 01/31/19 11:05 98.2 F 85 17 123/60 100 Intake and Output 01/31/19 01/31/19 01/31/19 06:59 14:59 22:59 Other: Weight 72.983 kg PHYSICAL EXAMINATION: Patient is lying in the bed comfortably, no acute distress, awake alert and o riented.. HEENT: Normocephalic. Neck is supple. Pupils reactive. Conjunctival icterus. Nostrils clear. Oral cavity is moist. Ears reveal no drainage. Neck reveals no JVD, carotid bruits, or thyromegaly. CHEST EXAMINATION: Trachea is central. Symmetrical expansion. Lung webster clear to auscultation and percussion. CARDIAC: Normal S1, S2 with no gallops. No murmurs ABDOMEN: Soft. Mild epigastric tenderness. No guarding no rigidity. Bowel sounds normal. No organomegaly. No abdominal bruits. Extremities: reveal no edema. No clubbing or cyanosis Neurologically awake, alert, oriented x3 with well-coordinated movements. No focal deficits noted Skin: No rash or skin lesions. Yellow discoloration of skin Psychiatric: Coperative. Nonsuicidal Musculoskeletal: No joint swelling or deformity. Normal range of motion. Results CBC & Chem 7: 01/31/19 11:23 01/31/19 11:23 Labs: Abnormal Lab Results - Last 24 Hours (Table) 01/31/19 01/31/19 Range/Units 11:23 11:23 RBC 2.87 L (4.30-5.90) m/uL Hgb 8.9 L D (13.0-17.5) gm/dL Hct 24.8 L (39.0-53.0) % RDW 17.1 H (11.5-15.5) % Neutrophils # 8.7 H (1.3-7.7) k/uL Lymphocytes # 0.5 L (1.0-4.8) k/uL Carbon Dioxide 32 H (22-30) mmol/L BUN 41 H (9-20) mg/dL Creatinine 3.12 H (0.66-1.25) mg/dL Glucose 124 H (74-99) mg/dL Calcium 10.4 H (8.4-10.2) mg/dL Magnesium 2.6 H (1.6-2.3) mg/dL Total Bilirubin 12.7 H (0.2-1.3) mg/dL AST 645 H (17-59) U/L ALT 554 H (21-72) U/L Alkaline Phosphatase 370 H (38-126) U/L Thrombosis Risk Factor Assmnt - DVT/VTE Prophylaxis DVT/VTE Prophylaxis: Mechanical Prophylaxis ordered Assessment and Plan Assessment: Coffee-ground emesis possible acute GI bleed. Possible variceal Anemia of chronic disease History of mitral valve repair due to infective endocarditis in September 2018 requiring LVAD and also complicated by renal failure, GI bleeding and liver failure ESRD on hemodialysis Thursday and Thursday History of CVA/TIA with no residual weakness. Currently taking aspirin and also on antiepileptic medications, reason unknown. Hypothyroidism Hyperbilirubinemia Elevated liver enzymes Chronic thrombocytopenia secondary to liver disease and ESRD DVT prophylaxis with heparin subcu Plan: Patient will be continued on Protonix IV and Carafate. Monitor H&H. Nephrology and gastroenterology will be consulted. We will get ultrasound of the abdomen to rule out any ductal dilatation. Follow up closely and further michael mmendations based on the clinical course. will try to get records from [facility]. Prognosis is guarded with this time. Time with Patient: Greater than 30
[2019-01-31] MEDS ORDERED: ACETAMINOPHEN TAB 325 MG TAB PO PRN (22:55)
[2019-01-31] MEDS: PANTOPRAZOLE 40 MG/10 ML VIAL IV SCH (23:28)
[2019-01-31] MEDS: HYDROcodone/APAP 5-325MG 1 EACH TAB PO PRN (23:29)
[2019-01-31] MEDS: levETIRAcetam 500 MG TAB PO SCH (23:32)
[2019-02-01 08:32] LABS: Anisocytosis Slight; Basophils % (A) 0 %; Eosinophils # (A) 0.2 k/uL (0-0.7); Eosinophils % (A) 3 %; HCT 25.7 % (39.0-53.0); HGB 9.1 gm/dL (13.0-17.5); Lymphocytes # (A) 0.4 k/uL (1.0-4.8); Lymphocytes % (A) 5 %; MCH 31.5 pg (25.0-35.0); MCHC 35.3 g/dL (31.0-37.0); MCV 89.5 fL (80.0-100.0); Mean Platelet Volume 6.4; Monocytes # (A) 0.4 k/uL (0-1.0); Monocytes % (A) 5 %; Neutrophils # (A) 6.1 k/uL (1.3-7.7); Neutrophils % (A) 86 %; Platelet Count 147 k/uL (150-450); Poikilocytosis Moderate; RBC 2.88 m/uL (4.30-5.90); RDW 17.2 % (11.5-15.5); WBC 7.1 k/uL (3.8-10.6)
[2019-02-01 08:43] LABS: Albumin 4.2 g/dL (3.5-5.0); Potassium 4.8 mmol/L (3.5-5.1); Total Protein 7.4 g/dL (6.3-8.2)
[2019-02-01] MEDS ORDERED: NON FORMULARY DRUG (Omeprazole [Omeprazole] 20 MG) PO SCH (09:00)
[2019-02-01 09:04] LABS: Total Bilirubin 15.7 mg/dL (0.2-1.3)
--- NOTE | 2019-02-01 09:16 | US ---
EXAMINATION TYPE: US abdomen limited DATE OF EXAM: 02/01/2019 COMPARISON: NONE CLINICAL HISTORY: elevated LFts; nausea and vomiting post blood transfusion yesterday; mitral valve r epair this year, renal dialysis post MVR repair EXAM MEASUREMENTS: Liver Length: 18.5 cm Gallbladder Wall: 0.9 cm CBD: 1.25 cm Right Kidney: 10.5 x 5.2 x 4.6 cm Pancreas: wnl, enlarged CBD in head of pancreas Liver: enlarged although homogeneous in echotexture. Gallbladder: area believed to be gallbladder is enlarged and contains mixed contents with shadowing stones seen in fundus, abnormally thickened wall with pericholecystic fluid seen at fundus especially at image #[id number]. Evidence for sonographic Brunner's sign: patient c/o some pain here with probe pressure CBD: abnormally dilated with internal contents noted image #[id number] Right Kidney: No hydronephrosis or masses seen IMPRESSION: 1. Acute cholecystitis. Gallbladder wall thickening, debris within the common bile duct, enlarged com mon bile duct, and pericholecystic fluid are seen. Additionally there are hyperechoic foci within the gallbladder that could represent numerous gallstones within debris or less likely air. If this becki rn for emphysematous cholecystitis CT abdomen could be obtained. Surgical consultation is recommended . 2. Hepatomegaly incidentally noted. A [place] level critical message alert has been initiated for Geraldine Ordaz MD via the [employer] Critical Results System on 02/01/2019 9:14 AM. This message alert has been sent to Geraldine Ordaz MD via the preferences provided by the clinician for the receipt of Radiology Critical Findin gs. Message ID [id number].
[2019-02-01] MEDS: LEVOTHYROXINE 137 MCG TAB PO SCH (09:50)
[2019-02-01] MEDS: SENNOSIDES-DOCUSATE SODIUM 1 EACH TAB PO SCH ×2 (09:51→21:09)
[2019-02-01] MEDS: FOLIC ACID 1 MG TAB PO SCH (09:51)
[2019-02-01] MEDS: PANTOPRAZOLE 40 MG/10 ML VIAL IV SCH (09:51)
[2019-02-01] MEDS: CALCIUM ACETATE 667 MG CAP PO SCH ×3 (09:51→20:28)
[2019-02-01] MEDS: SUCRALFATE 1 GM TAB PO SCH ×4 (09:51→20:28)
[2019-02-01] MEDS: levETIRAcetam 500 MG TAB PO SCH ×2 (10:45→20:27)
--- NOTE | 2019-02-01 12:49 | P.NPCON ---
History of Present Illness - Reason for Consult acute renal failure - History of Present Illness Reason for consultation: Acute kidney injury currently hemodialysis dependent History of present illness: Patient is a 43-year-old male seen in renal consultation for acute kidney injury, currently hemodialysis dependent. He is maintained on hemodialysis on Thursday schedule. Patient's last hemodialysis was on Thursday. Creatinine today is 3.3 with a GFR of 21. Patient denies significant edema. No chest pain or shortness of breath. Patient presented to the hospital due to coffee ground emesis which happened Thursday afternoon. Patient denies any melena or hematochezia. Patient has received multiple blood transfusions recently due to hemoglobin of less than 7. Patient underwent mitral valve repair at [facility] this summer and subsequently developed ATN requiring hemodialysis. He is also noted to have elevated bilirubin along with AST and ALT. He does make good amount of urine. No hematuria. Hemodynamically stable. Vital signs are stable. General: The patient appeared well nourished and normally developed. HEENT: Head exam is unremarkable. Neck is without jugular venous distension. LUNGS: Lungs are clear to auscultation and percussion. Breath sounds decreased. HEART: Rate and Rhythm are regular. First and second heart sounds normal. No murmurs, rubs or gallops. ABDOMEN: Abdominal exam reveals normal bowel sounds. Non-tender and non- distended. No evidence of peritonitis. EXTREMITITES: No clubbing, cyanosis, or edema. 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, and pt had mitral valve repair and then had renal and liver insufficiency after surgery; [facility] History of Any Multi-Drug Resistant Organisms: None Reported Additional Past Surgical History / Comment(s): Mitral valve repair July 2018; artery repair during mitral valve repair Past Anesthesia/Blood Transfusion Reactions: No Reported Reaction Past Psychological History: No Psychological Hx Reported Smoking Status: Never smoker Past Alcohol Use History: None Reported Past Drug Use History: None Reported - Past Family History Father Family Medical History: AFIB Medications and Allergies Home Medications Medication Instructions Recorded Confirmed Type B Complex & C No.20/Folic Acid 1 mg PO HS 12/30/18 01/31/19 History [Nephrocaps Softgel] Darbepoetin Thompson [Aranesp] 25 mcg SQ Q7D PRN 12/30/18 01/31/19 History Ferrous Sulfate [Iron (65 MG 325 mg PO DAILY 12/30/18 01/31/19 History Elemental)] Folic Acid 1 mg PO DAILY 12/30/18 01/31/19 History Levothyroxine Sodium [Synthroid] 137 mcg PO DAILY 12/30/18 01/31/19 History Magnesium Oxide [Mag-Ox] 800 mg PO BID 12/30/18 01/31/19 History Sucralfate [Carafate] 1 gram PO QID 12/30/18 01/31/19 History levETIRAcetam 500 mg PO BID 12/30/18 01/31/19 History Aspirin EC [Ecotrin] 325 mg PO DAILY 01/29/19 01/31/19 History Calcium Acetate [PhosLo] 667 mg PO TID 01/29/19 01/31/19 History Melatonin 9 mg PO HS 01/29/19 01/31/19 History Omeprazole 20 mg PO QAM 01/29/19 01/31/19 History Sennosides-Docusate Sodium 1 tab PO BID 01/29/19 01/31/19 History [Senokot-S] Bumetanide [BUMEX] 2 mg PO QID 01/31/19 01/31/19 History Allergies Allergy/AdvReac Type Severity Reaction Status Date / Time No Known Allergies Allergy Verified 01/31/19 11:37 Physical Exam Vitals: Vital Signs Temp Pulse Pulse Pulse Resp BP BP 02/01/19 11:57 97.8 F 70 16 127/68 02/01/19 06:04 97.4 F L 74 16 01/31/19 23:54 75 18 127/66 01/31/19 22:27 81 18 129/66 01/31/19 19:50 71 18 124/61 01/31/19 19:00 70 23 140/68 01/31/19 18:30 78 19 127/64 01/31/19 18:00 75 17 124/63 01/31/19 17:30 69 19 125/62 01/31/19 17:00 72 21 126/61 01/31/19 16:30 73 23 125/63 01/31/19 16:00 75 20 127/64 01/31/19 15:30 78 19 127/63 01/31/19 15:00 75 15 122/61 01/31/19 14:30 73 18 128/64 01/31/19 14:00 71 17 135/71 01/31/19 13:30 73 18 125/60 01/31/19 13:00 73 22 124/61 BP Pulse Ox 02/01/19 11:57 98 02/01/19 06:04 127/61 99 01/31/19 23:54 99 01/31/19 22:27 97 01/31/19 19:50 99 01/31/19 19:00 100 01/31/19 18:30 100 01/31/19 18:00 98 01/31/19 17:30 99 01/31/19 17:00 01/31/19 16:30 98 01/31/19 16:00 99 01/31/19 15:30 92 L 01/31/19 15:00 95 01/31/19 14:30 99 01/31/19 14:00 89 L 01/31/19 13:30 100 01/31/19 13:00 100 Results - Lab Results Most recent lab results Calcium 10.0 mg/dL (8.4-10.2) 02/01/19 08:06 Magnesium 2.6 mg/dL (1.6-2.3) H 01/31/19 11:23 02/01/19 08:06 02/01/19 08:06 Assessment and Plan Plan: Assessment: 1. Acute kidney injury, currently hemodialysis dependent. Etiology is ATN after mitral valve repair. He is maintained on hemodialysis on Thursday schedule. Creatinine today is 3.3. 2. Coffee-ground emesis with recurrent anemia requiring blood transfusions. GI consulted. 3. Hyperbilirubinemia along with elevated AST and ALT. Questionable cause. 4. Status post mitral valve repair at [facility] earlier this year. 5. Chronic kidney disease mineral bone disease maintained on PhosLo. Plan: Will hold off on hemodialysis and monitor renal function closely. Continue to assess on daily basis for further need for renal replacement therapy. Check iron studies. Add Aranesp. Thank you for the consultation. I will continue to follow the patient with you during his hospital stay.
[2019-02-01] MEDS ORDERED: DARBEPOETIN ALFA 40 MCG/0.4 ML SYRINGE SQ SCH (13:00)
[2019-02-01 13:03] LABS: Bilirubin, Conjugated 9.5 mg/dL (0.0-0.3); Bilirubin,Unconjugated 2.9 mg/dL (0.0-1.1)
[2019-02-01 13:09] LABS: Bilirubin, Delta 2.9 mg/dL (0.0-0.2)
[2019-02-01 13:10] LABS: Total Bilirubin 15.3 mg/dL (0.2-1.3)
--- NOTE | 2019-02-01 15:22 | P.PN ---
Subjective Progress Note Date: 02/01/19 Mr. Sanders is seen today after being transferred his care to [facility] as a he was recently discharged after blood transfusion 2 days ago. Patient stated that once he went home on Thursday, January 30 he did well after the transfusion until Thursday morning when he started having pain in the abdomen and upper abdominal area which he was unable to describe the quality and severity. Patient stated that after that he had nausea and he threw up twice with the his gastric contents of food which was partially digested. Patient had another third episode of vomiting that was causing severe burning in his mid chest and the vomitus was dark colored. Patient did not saw bright red blood in it but he got scared C came to the emergency room. Patient was evaluated in the emergency room and was noted to have acute hepatitis type picture with hyperbilirubinemia of 12.7. Patient was admitted for further management. Patient hemoglobin was monitored which remained stable and was better than at the time of discharge 2 days ago. Patient stated that since his admission he did not had any nausea or vomiting but he still have pain in the upper abdominal area but it is bearable. Patient denies chest pain, palpitation, headache, dizziness, fever, chills, cough, sputum production and denies nausea vomiting at this time and denies rest of the review system. Regarding patient's abdominal pain stated that it is nonradiating and it is constant in the upper abdomen towards the center area. Patient was admitted from the emergency room under Dr. Ordaz's service but this morning patient was transferred to [facility] as he was recently discharged 2 days ago from our service. 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 Anemia requiring multiple blood transfusions with most recent transfusion on . Objective - Vital Signs Vital signs: Vital Signs Temp 97.7 F 02/01/19 14:09 Pulse 73 02/01/19 14:09 Resp 16 02/01/19 14:09 BP 133/70 02/01/19 14:09 Pulse Ox 98 02/01/19 14:09 Intake & Output 01/31/19 02/01/19 02/01/19 18:59 06:59 18:59 Intake Total 0 Balance 0 Weight 72.983 kg 72.983 kg Intake: Oral 0 Other: # Voids 1 - Constitutional General appearance: Present: cooperative, no acute distress - EENT Eyes: Present: EOMI, scleral icterus ENT: Present: hearing grossly normal, NA/AT - Neck Neck: Present: normal ROM. Absent: lymphadenopathy, rigidity, stridor, thyromegaly - Respiratory Respiratory: bilateral: CTA, negative: dullness, rales, rhonchi, wheezing - Cardiovascular Rhythm: regular Heart sounds: normal: S1, S2 - Gastrointestinal General gastrointestinal: Present: normal bowel sounds, soft, tenderness (Mild Epigastric without rebound.). Absent: distended, rigid - Integumentary Integumentary: Present: decreased turgor, jaundiced - Neurologic Neurologic: Present: CNII-XII intact, focal deficits - Psychiatric Psychiatric: Present: A&O x's 3, appropriate affect - Allied health notes Allied health notes reviewed: nursing - Labs CBC & Chem 7: 02/01/19 08:06 02/01/19 08:06 Labs: Abnormal Lab Results - Last 24 Hours (Table) 02/01/19 02/01/19 02/01/19 Range/Units 08:06 08:06 08:06 RBC 2.88 L (4.30-5.90) m/uL Hgb 9.1 L (13.0-17.5) gm/dL Hct 25.7 L (39.0-53.0) % RDW 17.2 H (11.5-15.5) % Plt Count 147 L (150-450) k/uL Lymphocytes # 0.4 L (1.0-4.8) k/uL Carbon Dioxide 32 H (22-30) mmol/L BUN 39 H (9-20) mg/dL Creatinine 3.30 H (0.66-1.25) mg/dL Glucose 107 H (74-99) mg/dL Total Bilirubin 15.7 H* 15.3 H* (0.2-1.3) mg/dL Conjugated Bilirubin 9.5 H (0.0-0.3) mg/dL Unconjugated Bilirubin 2.9 H (0.0-1.1) mg/dL Delta Bilirubin 2.9 H (0.0-0.2) mg/dL AST 504 H (17-59) U/L ALT 588 H (21-72) U/L Alkaline Phosphatase 383 H (38-126) U/L - Imaging and Cardiology US - abdomen: report reviewed (Acute Cholecystitis with Cholelithiasis.) Assessment and Plan Plan: Acute Cholecystitis. Cholelithiasis, possible causing ductal obstruction leading to above. Acute Hepatitis ? cause v/s due to above two, with recent h/o liver failure. Anemia of chronic disease currently hemoglobin stable. 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 Currently taking aspirin and also on antiepileptic medications, reason unknown. Hypothyroidism Hyperbilirubinemia Chronic thrombocytopenia secondary to liver disease and ESRD DVT prophylaxis with s/c heparin. Plan[facility] pt. is fairly stable, U/S abdomen report was reviewed. Care coordinated with Zoila Moses from Dr. Mccarthy's office re: possibility of surgical intervention here, they will discuss with Dr. Acosta (incendiary powder mixer) first prior to their final recommendations re: Cholecystectomy. If surgery want to monitor first for pt's liver failure, then pt. may benefit from I.R. guided cholecystostomy tube placement to decreased the load of hyper-bilirubinemia. Pt's liver enzyme will be checked in the evening and then in the morning to monitor their status. Protonix will be changed to oral and Carafate can be changed to qAC&HS in place of every 6 hours and will monitor H&H. Nephrology was consulted to continue M-W- HD sessions. Overall pt's prognosis is guarded with this time, pt's home medications were reviewed and continued. Time with Patient: Less than 30
[2019-02-01 16:06] LABS: Bilirubin, Conjugated 9.5 mg/dL (0.0-0.3); Bilirubin, Delta 2.6 mg/dL (0.0-0.2); Total Protein 7.2 g/dL (6.3-8.2)
[2019-02-01 16:12] LABS: Total Bilirubin 15.1 mg/dL (0.2-1.3)
[2019-02-01] MEDS: PANTOPRAZOLE 40 MG TABLET PO SCH (17:09)
[2019-02-01] MEDS: BUMETANIDE 1 MG TAB PO SCH ×2 (17:10→20:28)
--- NOTE | 2019-02-01 17:11 | P.GSCN ---
History of Present Illness Consult date: 02/01/19 Reason for Consult: Cholecystitis Requesting physician: Rosa Elena Gonzales History of present illness: CHIEF COMPLAINT: Cholecystitis HISTORY OF PRESENT ILLNESS: 43 year old male who has a history of endocarditis of unknown etiology with subsequent liver failure and renal failure per patient. Patient presented to the hospital with epigastric discomfort, nausea, and dark colored emesis. General surgery was consulted for further evaluation. Patient examined at the bedside. He reports some tenderness to the epigastric region. No further episodes of emesis. PAST MEDICAL HISTORY: See list. PAST SURGICAL HISTORY: See list. SOCIAL HISTORY: No illicit drug use. REVIEW OF SYSTEMS: CONSTITUTIONAL: Denies fever or chills. HEENT: Denies blurred vision, vision changes, or eye pain. Denies hemoptysis CARDIOVASCULAR: Denies chest pain or pressure. RESPIRATORY: No shortness of breath. GASTROINTESTINAL: Refer to HPI for pertinent findings HEMATOLOGIC: Denies bleeding disorders. GENITOURINARY: Denies any blood in urine. SKIN: Denies pruitis. Denies rash. PHYSICAL EXAM: VITAL SIGNS: Reviewed. GENERAL: Well-developed in no acute distress. Jaundice. HEENT: Sclera icterus. Extraocular movements grossly intact. Moist buccal mucosa. Head is atraumatic, normocephalic. ABDOMEN: Soft. Nondistended. Tenderness with palpation of epigastric region. NEUROLOGIC: Alert and oriented. Cranial nerves II through XII grossly intact. LABORATORY DATA: WBC 7.1. Hemoglobin 9.1. Platelet count 147. Potassium 4.8. BUN 39. Creatinine 3.30. Total bilirubin 15.1. AST 499. ALT 585. Alkaline phosphatase 401. IMAGING: Abdominal ultrasound: Acute cholecystitis. Gallbladder wall thickening. Debris in the common bile duct. Enlarged common bile duct. Measuring 1.25 cm. Pericholecystic fluid is seen. Additionally there is hyperechoic foci within the gallbladder that could represent numerous gallstones within debris or less likely air. ASSESSMENT: 1. Epigastric pain, nausea, vomiting 2. Cholecystitis 3. Hyperbilirubinemia 4. Transaminitis 5. Obstructive jaundice 6. Suspected choledocholithiasis PLAN: Patient will require cholecystectomy when medically stable GI is on consult. Await evaluation. Will obtain MRCP per Dr. Rosas. Anticipate need for ERCP. Monitor labs. Repeat in AM Nurse practitioner note has been reviewed by physician. Signing provider agrees with the documented findings, assessment, and plan of care. 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, and pt had mitral valve repair and then had renal and liver insufficiency after surgery; [facility] History of Any Multi-Drug Resistant Organisms: None Reported Additional Past Surgical History / Comment(s): Mitral valve repair July 2018; artery repair during mitral valve repair Past Anesthesia/Blood Transfusion Reactions: No Reported Reaction Past Psychological History: No Psychological Hx Reported Smoking Status: Never smoker Past Alcohol Use History: None Reported Past Drug Use History: None Reported - Past Family History Father Family Medical History: AFIB Medications and Allergies Home Medications Medication Instructions Recorded Confirmed Type B Complex & C No.20/Folic Acid 1 mg PO HS 12/30/18 01/31/19 History [Nephrocaps Softgel] Darbepoetin Thompson [Aranesp] 25 mcg SQ Q7D PRN 12/30/18 01/31/19 History Ferrous Sulfate [Iron (65 MG 325 mg PO DAILY 12/30/18 01/31/19 History Elemental)] Folic Acid 1 mg PO DAILY 12/30/18 01/31/19 History Levothyroxine Sodium [Synthroid] 137 mcg PO DAILY 12/30/18 01/31/19 History Magnesium Oxide [Mag-Ox] 800 mg PO BID 12/30/18 01/31/19 History Sucralfate [Carafate] 1 gram PO QID 12/30/18 01/31/19 History levETIRAcetam 500 mg PO BID 12/30/18 01/31/19 History Aspirin EC [Ecotrin] 325 mg PO DAILY 01/29/19 01/31/19 History Calcium Acetate [PhosLo] 667 mg PO TID 01/29/19 01/31/19 History Melatonin 9 mg PO HS 01/29/19 01/31/19 History Omeprazole 20 mg PO QAM 01/29/19 01/31/19 History Sennosides-Docusate Sodium 1 tab PO BID 01/29/19 01/31/19 History [Senokot-S] Bumetanide [BUMEX] 2 mg PO QID 01/31/19 01/31/19 History Allergies Allergy/AdvReac Type Severity Reaction Status Date / Time No Known Allergies Allergy Verified 01/31/19 11:37 Surgical - Exam Vital Signs Temp Pulse Resp BP Pulse Ox 98.2 F 85 17 123/60 100 01/31/19 11:05 01/31/19 11:05 01/31/19 11:05 01/31/19 11:05 01/31/19 11:05 Results - Labs 02/01/19 08:06 02/01/19 08:06 Abnormal Lab Results - Last 24 Hours (Table) 02/01/19 02/01/19 02/01/19 Range/Units 08:06 08:06 08:06 RBC 2.88 L (4.30-5.90) m/uL Hgb 9.1 L (13.0-17.5) gm/dL Hct 25.7 L (39.0-53.0) % RDW 17.2 H (11.5-15.5) % Plt Count 147 L (150-450) k/uL Lymphocytes # 0.4 L (1.0-4.8) k/uL Carbon Dioxide 32 H (22-30) mmol/L BUN 39 H (9-20) mg/dL Creatinine 3.30 H (0.66-1.25) mg/dL Glucose 107 H (74-99) mg/dL Total Bilirubin 15.7 H* 15.3 H* (0.2-1.3) mg/dL Conjugated Bilirubin 9.5 H (0.0-0.3) mg/dL Unconjugated Bilirubin 2.9 H (0.0-1.1) mg/dL Delta Bilirubin 2.9 H (0.0-0.2) mg/dL AST 504 H (17-59) U/L ALT 588 H (21-72) U/L Alkaline Phosphatase 383 H (38-126) U/L 02/01/19 Range/Units 08:06 RBC (4.30-5.90) m/uL Hgb (13.0-17.5) gm/dL Hct (39.0-53.0) % RDW (11.5-15.5) % Plt Count (150-450) k/uL Lymphocytes # (1.0-4.8) k/uL Carbon Dioxide (22-30) mmol/L BUN (9-20) mg/dL Creatinine (0.66-1.25) mg/dL Glucose (74-99) mg/dL Total Bilirubin 15.1 H* (0.2-1.3) mg/dL Conjugated Bilirubin 9.5 H (0.0-0.3) mg/dL Unconjugated Bilirubin 3.0 H (0.0-1.1) mg/dL Delta Bilirubin 2.6 H (0.0-0.2) mg/dL AST 499 H (17-59) U/L ALT 585 H (21-72) U/L Alkaline Phosphatase 401 H (38-126) U/L Diabetes panel 02/01/19 02/01/19 Range/Units 08:06 08:06 Sodium 143 (137-145) mmol/L Potassium 4.8 (3.5-5.1) mmol/L Chloride 99 (98-107) mmol/L Carbon Dioxide 32 H (22-30) mmol/L BUN 39 H (9-20) mg/dL Creatinine 3.30 H (0.66-1.25) mg/dL Glucose 107 H (74-99) mg/dL Calcium 10.0 (8.4-10.2) mg/dL AST 504 H 499 H (17-59) U/L ALT 588 H 585 H (21-72) U/L Alkaline Phosphatase 383 H 401 H (38-126) U/L Total Protein 7.4 7.2 (6.3-8.2) g/dL Albumin 4.2 4.0 (3.5-5.0) g/dL Calcium panel 02/01/19 02/01/19 Range/Units 08:06 08:06 Calcium 10.0 (8.4-10.2) mg/dL Albumin 4.2 4.0 (3.5-5.0) g/dL Pituitary panel 02/01/19 Range/Units 08:06 Sodium 143 (137-145) mmol/L Potassium 4.8 (3.5-5.1) mmol/L Chloride 99 (98-107) mmol/L Carbon Dioxide 32 H (22-30) mmol/L BUN 39 H (9-20) mg/dL Creatinine 3.30 H (0.66-1.25) mg/dL Glucose 107 H (74-99) mg/dL Calcium 10.0 (8.4-10.2) mg/dL Adrenal panel 02/01/19 02/01/19 02/01/19 Range/Units 08:06 08:06 08:06 Sodium 143 (137-145) mmol/L Potassium 4.8 (3.5-5.1) mmol/L Chloride 99 (98-107) mmol/L Carbon Dioxide 32 H (22-30) mmol/L BUN 39 H (9-20) mg/dL Creatinine 3.30 H (0.66-1.25) mg/dL Glucose 107 H (74-99) mg/dL Calcium 10.0 (8.4-10.2) mg/dL Total Bilirubin 15.7 H* 15.3 H* 15.1 H* (0.2-1.3) mg/dL AST 504 H 499 H (17-59) U/L ALT 588 H 585 H (21-72) U/L Alkaline Phosphatase 383 H 401 H (38-126) U/L Total Protein 7.4 7.2 (6.3-8.2) g/dL Albumin 4.2 4.0 (3.5-5.0) g/dL
[2019-02-01] MEDS: MAGNESIUM OXIDE 400 MG TAB PO SCH (20:27)
[2019-02-01] MEDS: FOLIC ACID-VIT B COMPLEX-VIT C 1 CAP PO SCH (20:27)
[2019-02-01] MEDS: MELATONIN 3 MG TABLET PO SCH (21:09)
[2019-02-01] MEDS: HYDROcodone/APAP 5-325MG 1 EACH TAB PO PRN (23:17)
--- NOTE | 2019-02-01 23:46 | P.CONS ---
History of Present Illness - Reason for Consult Consult date: 02/01/19 Hematemesis Requesting physician: Geraldine Ordaz - Chief Complaint Dark vomit - History of Present Illness 43-year-old male with a medical history significant for endocarditis status post mitral valve replacement or at [facility] which complicated by kidney and liver failure, currently on hemodialysis the patient suffers from chronic anemia and presented to the hospital with complaints of dark vomit. The patient reports taking up with a cystic feeling in his stomach. He subsequently had multiple episodes of vomiting with the patient noting dark vomitus with his last episode of emesis. She denies any associated fevers, chills or generalized weakness. No sick contacts, or unusual foods or new medications prior to developing the symptoms. The patient's stay at [facility] was also complicated by a GI bleed at which time the patient had clipping of the distal esophagus with a repeat GI bleed treated with CT angiography with coiling. Anitrai ng that hospitalization the patient's postsurgical course was complicated by hypoperfusion resulting in kidney and liver failure, which time his bilirubin was found to be elevated per his recollection. The patient also had a known history of cholelithiasis, however this was not treated as he was asymptomatic at that time. On current presentation the patient is found to have markedly elevated liver enzymes with both a cholestatic and hepatocellular pattern with total bilirubin 15.1, alkaline phosphatase 401, AST 499 and ALTs 585 with ultrasound of the abdomen with findings of acute cholecystitis with a dilated 1.2 cm common bile duct with debris noted in the common bile duct. Review of Systems REVIEW OF SYSTEMS: CONSTITUTIONAL: Denies any fevers, chills, weight change or fatigue. CARDIOVASCULAR: Denies any chest pain, palpitations high or low blood pressures RESPIRATORY: Denies any shortness of breath, hemoptysis or cough. GENITOURINARY: Patient has been receiving hemodialysis. MUSCULOSKELETAL: No weakness reported. SKIN: Denies any new rashes or lesions,or pallor but does report jaundice. PSYCHIATRIC: Denies any depression or anxiety. NEUROLOGY: Denies headache, denies any new focal deficits. EARS/NOSE/THROAT: No recent hearing change, congestion, nasal discharge or sore throat. EYES: No pain in eyes, discharge or change in vision. GASTROINTESTINAL: As per HPI. 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, and pt had mitral valve repair and then had renal and liver insufficiency after surgery; [facility] History of Any Multi-Drug Resistant Organisms: None Reported Additional Past Surgical History / Comment(s): Mitral valve repair July 2018; artery repair during mitral valve repair Past Anesthesia/Blood Transfusion Reactions: No Reported Reaction Past Psychological History: No Psychological Hx Reported Smoking Status: Never smoker Past Alcohol Use History: None Reported Past Drug Use History: None Reported - Past Family History Father Family Medical History: AFIB Medications and Allergies Home Medications Medication Instructions Recorded Confirmed Type B Complex & C No.20/Folic Acid 1 mg PO HS 12/30/18 01/31/19 History [Nephrocaps Softgel] Darbepoetin Thompson [Aranesp] 25 mcg SQ Q7D PRN 12/30/18 01/31/19 History Ferrous Sulfate [Iron (65 MG 325 mg PO DAILY 12/30/18 01/31/19 History Elemental)] Folic Acid 1 mg PO DAILY 12/30/18 01/31/19 History Levothyroxine Sodium [Synthroid] 137 mcg PO DAILY 12/30/18 01/31/19 History Magnesium Oxide [Mag-Ox] 800 mg PO BID 12/30/18 01/31/19 History Sucralfate [Carafate] 1 gram PO QID 12/30/18 01/31/19 History levETIRAcetam 500 mg PO BID 12/30/18 01/31/19 History Aspirin EC [Ecotrin] 325 mg PO DAILY 01/29/19 01/31/19 History Calcium Acetate [PhosLo] 667 mg PO TID 01/29/19 01/31/19 History Melatonin 9 mg PO HS 01/29/19 01/31/19 History Omeprazole 20 mg PO QAM 01/29/19 01/31/19 History Sennosides-Docusate Sodium 1 tab PO BID 01/29/19 01/31/19 History [Senokot-S] Bumetanide [BUMEX] 2 mg PO QID 01/31/19 01/31/19 History Allergies Allergy/AdvReac Type Severity Reaction Status Date / Time No Known Allergies Allergy Verified 01/31/19 11:37 Physical Exam Vitals: Vital Signs Temp Pulse Pulse Pulse Resp BP BP 02/01/19 19:48 97.8 F 98 73 16 116/68 02/01/19 15:44 98.0 F 98 73 14 112/66 02/01/19 14:09 97.7 F 73 16 133/70 02/01/19 11:57 97.8 F 70 16 127/68 02/01/19 06:04 97.4 F L 74 16 01/31/19 23:54 75 18 127/66 01/31/19 22:27 81 18 129/66 BP Pulse Ox 02/01/19 19:48 02/01/19 15:44 02/01/19 14:09 98 02/01/19 11:57 98 02/01/19 06:04 127/61 99 01/31/19 23:54 99 01/31/19 22:27 97 Intake and Output 02/01/19 02/01/19 02/01/19 06:59 14:59 22:59 Intake Total 0 1184 Balance 0 1184 Intake: Oral 0 1184 Other: Voiding Method Toilet # Voids 1 Weight 72.983 kg On physical examination, patient appears comfortable in no apparent distress. HEAD: Normocephalic, atraumatic. EYES: Scleral icterus. No conjunctival injection. MOUTH: No lesions, tongue midline. NECK: Trachea midline, no gross abnormalities. CHEST: Clear to auscultation with no wheezing or rhonchi appreciated. HEART: S1-S2 appreciated. ABDOMEN: Soft, thin. Bowel sounds are positive. No organomegaly. No guarding or rigidity. EXTREMITIES: No pedal edema. SKIN: No rashes, jaundice. NEUROLOGIC: Alert and oriented x3. No focal deficits. Results CBC & Chem 7: 02/01/19 08:06 02/01/19 08:06 Labs: Abnormal Lab Results - Last 24 Hours (Table) 02/01/19 02/01/19 02/01/19 Range/Units 08:06 08:06 08:06 RBC 2.88 L (4.30-5.90) m/uL Hgb 9.1 L (13.0-17.5) gm/dL Hct 25.7 L (39.0-53.0) % RDW 17.2 H (11.5-15.5) % Plt Count 147 L (150-450) k/uL Lymphocytes # 0.4 L (1.0-4.8) k/uL Carbon Dioxide 32 H (22-30) mmol/L BUN 39 H (9-20) mg/dL Creatinine 3.30 H (0.66-1.25) mg/dL Glucose 107 H (74-99) mg/dL Total Bilirubin 15.7 H* 15.3 H* (0.2-1.3) mg/dL Conjugated Bilirubin 9.5 H (0.0-0.3) mg/dL Unconjugated Bilirubin 2.9 H (0.0-1.1) mg/dL Delta Bilirubin 2.9 H (0.0-0.2) mg/dL AST 504 H (17-59) U/L ALT 588 H (21-72) U/L Alkaline Phosphatase 383 H (38-126) U/L 02/01/19 Range/Units 08:06 RBC (4.30-5.90) m/uL Hgb (13.0-17.5) gm/dL Hct (39.0-53.0) % RDW (11.5-15.5) % Plt Count (150-450) k/uL Lymphocytes # (1.0-4.8) k/uL Carbon Dioxide (22-30) mmol/L BUN (9-20) mg/dL Creatinine (0.66-1.25) mg/dL Glucose (74-99) mg/dL Total Bilirubin 15.1 H* (0.2-1.3) mg/dL Conjugated Bilirubin 9.5 H (0.0-0.3) mg/dL Unconjugated Bilirubin 3.0 H (0.0-1.1) mg/dL Delta Bilirubin 2.6 H (0.0-0.2) mg/dL AST 499 H (17-59) U/L ALT 585 H (21-72) U/L Alkaline Phosphatase 401 H (38-126) U/L US - abdomen: report reviewed (Ultrasound of the abdomen with findings of acute cholecystitis, dilated 1.2 cm common bile duct with debris in the common bile duct.) Assessment and Plan (1) Elevated liver enzymes Narrative/Plan: 43-year-old male with multiple medical comorbidities including episode of infective endocarditis treated with mitral valve repair at [facility] with prolonged oscillation complicated by GI bleed, kidney and liver failure. He presented to the hospital due to concerns of dark vomitus and GI bleed and w as found to have markedly elevated liver enzymes in both a cholestatic and hepatocellular pattern. Ultrasound of the abdomen did show findings of acute cholecystitis with debris in the common bile duct and a 1.2 cm dilated common bile duct. He was noted to have cholelithiasis during his hospitalization at [facility] which was not treated as the patient was asymptomatic. Currently he is denying any abdominal pain but did have nausea and vomiting prior to presentation. It is felt that his elevated liver enzymes are likely multifactorial and not secondary to a common bile duct obstruction, but likely underlying liver disease from prior hospitalizations and underlying comorbidities exacerbated by acute cholecystitis. However debris was noted in the common bile duct and plan is for MRCP for further evaluation. Current Visit: Yes Status: Acute Code(s): R74.8 - ABNORMAL LEVELS OF OTHER SERUM ENZYMES SNOMED Code(s): 353672277 (2) Coffee ground emesis Current Visit: Yes Status: Acute Code(s): K92.0 - HEMATEMESIS SNOMED Code(s): 05803258 (3) Jaundice Current Visit: Yes Status: Acute Code(s): R17 - UNSPECIFIED JAUNDICE SNOMED Code(s): 25632619 (4) Upper GI bleed Current Visit: Yes Status: Acute Code(s): K92.2 - GASTROINTESTINAL HEMORRHAGE, UNSPECIFIED SNOMED Code(s): 77718103 Plan: Supportive care Clear liquid diet, nothing by mouth after midnight Continue to monitor CBC, CMP MRCP ordered (bioprosthesis was be checked for compatibility with MRI machine) Surgical service following appreciate the recommendations Unasyn ordered in the setting of acute cholecystitis Viral hepatitis panel pending Patient will be tentatively ordered for ERCP pending results of MRCP Thank you for allowing us to participate in the care of the patient, we will continue to follow
[2019-02-02] MEDS: AMPICILLIN-SULBACTAM 1.5 GM in SODIUM CHLORIDE 0.9% 50 ML IVPB SCH ×3 (00:22→16:59)
[2019-02-02] MEDS: LEVOTHYROXINE 137 MCG TAB PO SCH (05:03)
[2019-02-02] MEDS: CALCIUM ACETATE 667 MG CAP PO SCH ×3 (09:29→22:01)
[2019-02-02] MEDS: ASPIRIN 325 MG TAB PO SCH (09:29)
[2019-02-02] MEDS: FERROUS SULFATE 325 MG TAB PO SCH (09:31)
[2019-02-02] MEDS: FOLIC ACID 1 MG TAB PO SCH (09:31)
[2019-02-02] MEDS: SENNOSIDES-DOCUSATE SODIUM 1 EACH TAB PO SCH ×2 (09:31→22:01)
[2019-02-02] MEDS: BUMETANIDE 1 MG TAB PO SCH ×2 (09:31→22:02)
[2019-02-02] MEDS: SUCRALFATE 1 GM TAB PO SCH ×4 (09:31→22:02)
[2019-02-02] MEDS: levETIRAcetam 500 MG TAB PO SCH ×2 (09:31→22:03)
[2019-02-02] MEDS: PANTOPRAZOLE 40 MG TABLET PO SCH ×2 (09:32→17:00)
[2019-02-02] MEDS: MAGNESIUM OXIDE 400 MG TAB PO SCH ×2 (09:32→22:01)
--- NOTE | 2019-02-02 09:51 | MR ---
MRCP HISTORY: Elevated liver function tests, cholecystitis, liver failure and gallstones Multiplanar multisequence imaging through the biliary system. Three-dimensional reconstructions perfo rmed on an alternate workstation. Correlation to ultrasound abdomen 02/01/2019 Intra and extrahepatic biliary ducts are dilated. Gallbladder is distended and shows mixed internal w ith probable fluid debris level, signal consistent with debris and stones, the gallbladder wall is th ickened. Within the distal common bile duct, mixed signal is also present seen on coronal image #18-2 0 of the T2 data set, axial image #17. On axial image #24 of the T2 data set low signal may reflect s tone within the cystic duct consistent with cystic duct obstruction. The liver is enlarged. Signal dr op on out of phase imaging may be indicative of hepatic steatosis. The spleen is enlarged. There is no evident ascites. There are effusions present at the lung bases. T here may be loculation at the right lung base, a septation is noted, difficult to exclude small empye ma. Kidneys are within normal limits. Adrenal glands unremarkable. No retroperitoneal adenopathy. Aorta s hows normal caliber. Pancreas does not show dilated duct. Impression: Choledocholithiasis, cholecystitis with cystic duct obstruction. Hepatosplenomegaly. Bila teral pleural effusions as described. Additional findings above.
--- NOTE | 2019-02-02 11:58 | P.PN ---
Subjective Patient is seen in follow-up for acute kidney injury, currently hemodialysis dependent. Patient's last hemodialysis was on January 28. Currently resting in bed. Denies chest pain or shortness of breath. MRCP revealed choledocholithiasis. Feels hungry. No vomiting or diarrhea. He has been voiding. Vital signs are stable. General: The patient appeared well nourished and normally developed. HEENT: Head exam is unremarkable. Neck is without jugular venous distension. LUNGS: Lungs are clear to auscultation and percussion. Breath sounds decreased. HEART: Rate and Rhythm are regular. First and second heart sounds normal. No murmurs, rubs or gallops. ABDOMEN: Abdominal exam reveals normal bowel sounds. Non-tender and non-distend ed. No evidence of peritonitis. EXTREMITITES: No clubbing, cyanosis, or edema. Jaundice noted. Objective - Vital Signs Vital signs: Vital Signs Temp 97.6 F 02/02/19 07:00 Pulse 88 02/02/19 07:37 Resp 15 02/02/19 07:37 BP 117/67 02/02/19 07:00 Pulse Ox 97 02/02/19 07:00 Intake & Output 02/01/19 02/02/19 02/02/19 18:59 06:59 18:59 Intake Total 1184 50 Balance 1184 50 Weight 72.983 kg Intake: Intake, IV Titration 50 Amount Ampicillin-Sulbactam 1.5 50 gm In Sodium Chloride 0.9 % 50 ml @ 100 mls/hr IVPB Q8HR [facility] Rx#:[id number] Oral 1184 Other: Voiding Method Toilet Toilet # Voids 1 1 1 - Labs CBC & Chem 7: 02/01/19 08:06 02/01/19 08:06 Labs: Abnormal Lab Results - Last 24 Hours (Table) 02/01/19 02/01/19 Range/Units 08:06 08:06 Total Bilirubin 15.3 H* 15.1 H* (0.2-1.3) mg/dL Conjugated Bilirubin 9.5 H 9.5 H (0.0-0.3) mg/dL Unconjugated Bilirubin 2.9 H 3.0 H (0.0-1.1) mg/dL Delta Bilirubin 2.9 H 2.6 H (0.0-0.2) mg/dL AST 499 H (17-59) U/L ALT 585 H (21-72) U/L Alkaline Phosphatase 401 H (38-126) U/L Assessment and Plan Plan: Assessment: 1. Acute kidney injury, currently hemodialysis dependent. Etiology is ATN after mitral valve repair. He is maintained on hemodialysis on Thursday schedule. Creatinine 3.3 as of yesterday. Labs from today pending. 2. Coffee-ground emesis with recurrent anemia requiring blood transfusions. GI following. Maintained on Aranesp. 3. Choledocholithiasis. Potential ERCP at this admission. 4. Status post mitral valve repair at [facility] earlier this year. 5. Chronic kidney disease mineral bone disease maintained on PhosLo. Plan: Will hold off on hemodialysis and monitor renal function closely. Continue to assess on daily basis for further need for renal replacement therapy. Check iron studies. Decrease Bumex to 2 mg twice daily. Check phosphorus level. Follow-up morning labs.
[2019-02-02 12:22] LABS: Albumin 4.4 g/dL (3.5-5.0); Bilirubin, Conjugated 12.6 mg/dL (0.0-0.3); Bilirubin,Unconjugated 2.9 mg/dL (0.0-1.1); Calcium 10.3 mg/dL (8.4-10.2); Magnesium 2.1 mg/dL (1.6-2.3); Potassium 4.4 mmol/L (3.5-5.1); Total Protein 7.9 g/dL (6.3-8.2)
[2019-02-02 12:26] LABS: Bilirubin, Delta 3.3 mg/dL (0.0-0.2)
[2019-02-02 12:32] LABS: Total Bilirubin 18.8 mg/dL (0.2-1.3)
[2019-02-02 12:39] LABS: Anisocytosis Slight; Basophils % (A) 1 %; Eosinophils # (A) 0.2 k/uL (0-0.7); Eosinophils % (A) 3 %; HCT 27.7 % (39.0-53.0); HGB 9.7 gm/dL (13.0-17.5); Lymphocytes # (A) 0.3 k/uL (1.0-4.8); Lymphocytes % (A) 5 %; MCHC 34.8 g/dL (31.0-37.0); MCV 89.2 fL (80.0-100.0); Mean Platelet Volume 6.2; Monocytes # (A) 0.3 k/uL (0-1.0); Monocytes % (A) 5 %; Neutrophils # (A) 5.4 k/uL (1.3-7.7); Neutrophils % (A) 85 %; Platelet Count 159 k/uL (150-450); Poikilocytosis Slight; RBC 3.11 m/uL (4.30-5.90); RDW 17.4 % (11.5-15.5); WBC 6.4 k/uL (3.8-10.6)
[2019-02-02] MEDS ORDERED: INDOMETHACIN 50MG SUPPOSITORY RECTAL ONE (12:45)
[2019-02-02 12:51] LABS: Phosphorus 6.1 mg/dL (2.5-4.5)
--- NOTE | 2019-02-02 13:39 | P.PN ---
Subjective Progress Note Date: 02/02/19 Patient reports that his nausea and vomiting has completely resolved since he came to the hospital, his pain in the right upper abdomen and epigastric area is improving. Patient's father was in the room and he was updated per patient's verbal consent and all questions were answered. Patient had chest pain, palpitation, diaphoresis, fever, chills, headache, dizziness, nausea, vomiting and denies rest of the review system. Patient had MRCP done earlier today and reported as acute cholecystitis, obstruction and the cystic duct and hepato- splenomegaly. Patient's blood work was also noted to have the worsening obstructive jaundice and worsening alkaline phosphatase with some improvement in transaminases. Objective - Vital Signs Vital signs: Vital Signs Temp 97.6 F 02/02/19 07:00 Pulse 88 02/02/19 07:37 Resp 15 02/02/19 07:37 BP 117/67 02/02/19 07:00 Pulse Ox 97 02/02/19 07:00 Intake & Output 02/01/19 02/02/19 02/02/19 18:59 06:59 18:59 Intake Total 1184 50 Balance 1184 50 Weight 72.983 kg Intake: Intake, IV Titration 50 Amount Ampicillin-Sulbactam 1.5 50 gm In Sodium Chloride 0.9 % 50 ml @ 100 mls/hr IVPB Q8HR [facility] Rx#:[id number] Oral 1184 Other: Voiding Method Toilet Toilet # Voids 1 1 1 - Constitutional General appearance: Present: cooperative, no acute distress - EENT Eyes: Present: EOMI, normal appearance ENT: Present: hearing grossly normal, NA/AT - Respiratory Respiratory: bilateral: CTA, negative: dullness, rales, rhonchi, wheezing - Cardiovascular Rhythm: regular Heart sounds: normal: S1, S2 - Gastrointestinal General gastrointestinal: Present: normal bowel sounds, soft, tenderness (Mild at epigastric area.). Absent: distended, rigid - Integumentary Integumentary: Present: jaundiced - Psychiatric Psychiatric: Present: A&O x's 3, appropriate affect - Allied health notes Allied health notes reviewed: nursing - Labs CBC & Chem 7: 02/02/19 10:49 02/02/19 10:49 Labs: Abnormal Lab Results - Last 24 Hours (Table) 02/01/19 02/02/1902/02/19 Range/Units 08:06 10:49 10:49 RBC 3.11 L (4.30-5.90) m/uL Hgb 9.7 L (13.0-17.5) gm/dL Hct 27.7 L (39.0-53.0) % RDW 17.4 H (11.5-15.5) % Lymphocytes # 0.3 L (1.0-4.8) k/uL Chloride 95 L (98-107) mmol/L Carbon Dioxide 33 H (22-30) mmol/L BUN 39 H (9-20) mg/dL Creatinine 3.52 H (0.66-1.25) mg/dL Calcium 10.3 H (8.4-10.2) mg/dL Phosphorus 6.1 H (2.5-4.5) mg/dL Total Bilirubin 15.1 H* 18.8 H* (0.2-1.3) mg/dL Conjugated Bilirubin 9.5 H 12.6 H (0.0-0.3) mg/dL Unconjugated Bilirubin 3.0 H 2.9 H (0.0-1.1) mg/dL Delta Bilirubin 2.6 H 3.3 H (0.0-0.2) mg/dL AST 499 H 344 H (17-59) U/L ALT 585 H 519 H (21-72) U/L Alkaline Phosphatase 401 H 433 H (38-126) U/L - Imaging and Cardiology MRI - abdomen: report reviewed Assessment and Plan Plan: Acute Cholecystitis. Cholelithiasis, possible causing ductal obstruction leading to above. Acute Hepatitis w/conjugated Hyperbilirubinemia ? cause v/s due to above two, with recent h/o liver failure. Anemia of chronic disease currently hemoglobin stable. 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 Currently taking aspirin and also on antiepileptic medications, reason unknown. Hypothyroidism Chronic thrombocytopenia secondary to liver disease and ESRD DVT prophylaxis with s/c heparin. Plan: Continue current management including I/V UNASYN, will d/c all APAP containing medications and will control pain with MS-IR, care coordinated with , who stated that he will take pt. for ERCP and will try to relief the obstruction and once achieved Dr. Rosas will take him for Cholecystectomy in the morning. Overall pt's condition is guarded. Per pt's verbal consent his father was updated and all questions were answered. Time with Patient: Greater than 30 (More than 50% time was spent in counseling and coordination of care.)
[2019-02-02] MEDS ORDERED: SODIUM CHLORIDE 0.9% 1,000 ML IV ONE ×2 (13:59→15:46)
--- NOTE | 2019-02-02 14:01 | P.PN ---
<Zoila Moses - Last Filed: 02/02/19 13:56> Subjective Progress Note Date: 02/02/19 CHIEF COMPLAINT: Cholecystitis HISTORY OF PRESENT ILLNESS: Patient examined this morning at the bedside. His abdominal pain has resolved. Denies nausea or vomiting. MRCP completed this morning reveals choledocholithiasis, cholecystitis cystic duct obstruction. Hepatosplenomegaly. Bilirubin 18.8. AST 344. ALT 519. PHYSICAL EXAM: VITAL SIGNS: Reviewed. GENERAL: Well-developed in no acute distress. Jaundice. HEENT: Sclera icterus. Extraocular movements grossly intact. Moist buccal mucosa. Head is atraumatic, normocephalic. ABDOMEN: Soft. Nondistended. Nontender. NEUROLOGIC: Alert and oriented. Cranial nerves II through XII grossly intact. ASSESSMENT: 1. Epigastric pain, nausea, vomiting 2. Acute Cholecystitis 3. Hyperbilirubinemia 4. Transaminitis 5. Obstructive jaundice 6. Choledocholithiasis PLAN: NPO Patient scheduled for ERCP this afternoon with Dr. Acosta Cholecystectomy to be performed this admission. Possible OR on /Thursday pending patient is medically stable. Monitor labs. Repeat in AM Nurse practitioner note has been reviewed by physician. Signing provider agrees with the documented findings, assessment, and plan of care. Objective - Vital Signs Vital signs: Vital Signs Temp 97.8 F 02/02/19 13:44 Pulse 91 02/02/19 13:44 Resp 18 02/02/19 13:44 BP 122/56 02/02/19 13:44 Pulse Ox 98 02/02/19 13:44 Intake & Output 02/01/19 02/02/19 02/02/19 18:59 06:59 18:59 Intake Total 1184 50 Balance 1184 50 Weight 72.983 kg Intake: Intake, IV Titration 50 Amount Ampicillin-Sulbactam 1.5 50 gm In Sodium Chloride 0.9 % 50 ml @ 100 mls/hr IVPB Q8HR [facility] Rx#:[id number] Oral 1184 Other: Voiding Method Toilet Toilet # Voids 1 1 1 - Labs CBC & Chem 7: 02/02/19 10:49 02/02/19 10:49 Labs: Abnormal Lab Results - Last 24 Hours (Table) 10/22/19 10/23/19 10/23/19 Range/Units 08:06 10:49 10:49 RBC 3.11 L (4.30-5.90) m/uL Hgb 9.7 L (13.0-17.5) gm/dL Hct 27.7 L (39.0-53.0) % RDW 17.4 H (11.5-15.5) % Lymphocytes # 0.3 L (1.0-4.8) k/uL Chloride 95 L (98-107) mmol/L Carbon Dioxide 33 H (22-30) mmol/L BUN 39 H (9-20) mg/dL Creatinine 3.52 H (0.66-1.25) mg/dL Calcium 10.3 H (8.4-10.2) mg/dL Phosphorus 6.1 H (2.5-4.5) mg/dL Total Bilirubin 15.1 H* 18.8 H* (0.2-1.3) mg/dL Conjugated Bilirubin 9.5 H 12.6 H (0.0-0.3) mg/dL Unconjugated Bilirubin 3.0 H 2.9 H (0.0-1.1) mg/dL Delta Bilirubin 2.6 H 3.3 H (0.0-0.2) mg/dL AST 499 H 344 H (17-59) U/L ALT 585 H 519 H (21-72) U/L Alkaline Phosphatase 401 H 433 H (38-126) U/L <Gary Rosas - Last Filed: 02/03/19 09:11> Objective - Vital Signs Vital signs: Vital Signs Temp 97.8 F 02/03/19 08:23 Pulse 89 02/03/19 08:23 Resp 18 02/03/19 08:23 BP 116/63 02/03/19 08:23 Pulse Ox 100 02/03/19 08:23 Intake & Output 02/02/19 02/03/19 02/03/19 18:59 06:59 18:59 Intake Total 200 Balance 200 Weight 72.575 kg Intake: IV 200 Other: Voiding Method Toilet Toilet # Voids 2 1 - Labs CBC & Chem 7: 02/03/19 07:18 02/03/19 07:18 Labs: Abnormal Lab Results - Last 24 Hours (Table) 02/02/19 02/02/19 02/02/19 Range/Units 10:49 10:49 10:49 RBC 3.11 L (4.30-5.90) m/uL Hgb 9.7 L (13.0-17.5) gm/dL Hct 27.7 L (39.0-53.0) % RDW 17.4 H (11.5-15.5) % Lymphocytes # 0.3 L (1.0-4.8) k/uL Chloride 95 L (98-107) mmol/L Carbon Dioxide 33 H (22-30) mmol/L BUN 39 H (9-20) mg/dL Creatinine 3.52 H (0.66-1.25) mg/dL Calcium 10.3 H (8.4-10.2) mg/dL Phosphorus 6.1 H (2.5-4.5) mg/dL Ferritin 4653.7 H (22.0-322.0) ng/mL Total Bilirubin 18.8 H* (0.2-1.3) mg/dL Conjugated Bilirubin 12.6 H (0.0-0.3) mg/dL Unconjugated Bilirubin 2.9 H (0.0-1.1) mg/dL Delta Bilirubin 3.3 H (0.0-0.2) mg/dL AST 344 H (17-59) U/L ALT 519 H (21-72) U/L Alkaline Phosphatase 433 H (38-126) U/L 02/03/19 02/03/19 Range/Units 07:18 07:18 RBC 3.20 L (4.30-5.90) m/uL Hgb 10.0 L (13.0-17.5) gm/dL Hct 28.5 L (39.0-53.0) % RDW 17.5 H (11.5-15.5) % Lymphocytes # 0.7 L (1.0-4.8) k/uL Chloride 94 L (98-107) mmol/L Carbon Dioxide 31 H (22-30) mmol/L BUN 52 H (9-20) mg/dL Creatinine 4.21 H (0.66-1.25) mg/dL Calcium (8.4-10.2) mg/dL Phosphorus (2.5-4.5) mg/dL Ferritin (22.0-322.0) ng/mL Total Bilirubin 12.3 H (0.2-1.3) mg/dL Conjugated Bilirubin (0.0-0.3) mg/dL Unconjugated Bilirubin (0.0-1.1) mg/dL Delta Bilirubin (0.0-0.2) mg/dL AST 199 H (17-59) U/L ALT 411 H (21-72) U/L Alkaline Phosphatase 427 H (38-126) U/L
[2019-02-02] MEDS ORDERED: fentaNYL (PF) 50 MCG/ML 2 ML AMP ONE (14:12)
[2019-02-02] MEDS ORDERED: LIDOCAINE 1% INJ 10MG/ML (20 ML MDV) ONE (14:12)
[2019-02-02] MEDS ORDERED: ROCURONIUM BROMIDE 10 MG/ML 10 ML VIAL IV ONE (14:12)
[2019-02-02] MEDS ORDERED: PROPOFOL 10 MG/ML 20 ML VIAL IV ONE (14:12)
[2019-02-02] MEDS ORDERED: SUCCINYLCHOLINE CHLORIDE 100 MG/5 ML SYR IV ONE (14:12)
[2019-02-02] MEDS ORDERED: IOPAMIDOL-300 50ML BTL MISCELLANE ONE (15:30)
--- NOTE | 2019-02-02 15:52 | FL ---
EXAMINATION TYPE: FL ERCP biliary duct only DATE OF EXAM: 02/02/2019 COMPARISON: MRCP same date HISTORY: stent placement Fluoroscopy support supplied to the referring clinician. See dictated report from gastroenterology, 47 seconds fluoroscopy time, 3 intraoperative images document the procedure
--- NOTE | 2019-02-02 15:58 | P.PCN ---
Date of Procedure: 02/02/19 Description of Procedure: Brief history: 43-year-old male with a medical history significant for endocarditis status post mitral valve replacement or at [facility] which complicated by kidney and liver failure, currently on hemodialysis the patient suffers from chronic anemia and presented to the hospital with complaints of dark vomit. He had multiple episodes of vomiting with the patient noting dark vomitus with his last episode of emesis. The patient also has a known history of cholelithiasis, however this was not treated as he was asymptomatic previously. On current presentation the patient is found to have markedly elevated liver enzymes with both a cholestatic and hepatocellular pattern with total bilirubin 15.1, alkaline phosphatase 401, AST 499 and ALTs 585 with ultrasound of the abdomen with findings of acute cholecystitis with a dilated 1.2 cm common bile duct with debris noted in the common bile duct. MRCP was performed and significant for cholecystitis, and choledocholithiasis. Procedure performed: ERCP with sphincterotomy, cholangiogram, balloon sweep and placement of a double pigtail plastic stent. Preoperative diagnoses: Choledocholithiasis, cholecystitis, elevated bilirubin IV sedation per anesthesia Estimated blood loss: Minimal. Procedure: After informed consent was obtained from the patient and after the risks benefits and complications including bleeding perforation and pancreatitis explained in detail the patient was brought into the endoscopy unit. The patient was placed in prone position and IV conscious sedation was administered by anesthesia under continuous monitoring. The Olympus side-viewing duodenoscope was then inserted into the mouth and esophagus intubated without any difficulty. The scope was gradually advanced into the stomach and duodenum. The major papilla was identified without any difficulty. The papilla was cannulated with a sphincterotome and a wire was passed into the common bile duct. Cholangiogram was then performed with findings of a dilated common bile duct with filling defects suggestive of choledocholithiasis, and consistent with findings from MRCP. 1 cm sphincterotomy was then performed with the sphincterotome. The sphincterotome was then exchanged for a balloon over the guidewire. Balloon was inflated to 11.5 mm with multiple passes of the common bile duct productive of 2 large stones and a copious amount of biliary sludge. The balloon was then removed over the wire and a 7-Romansh by 10 cm double- pigtail stent was placed into the common bile duct due to concerns of remaining choledocholithiasis. The patient tolerated the procedure well. Impression: 1. Choledocholithiasis and CBD sludge. 2. ERCP with an angiogram, sphincterotomy, balloon sweep of the common bile duct and placement of a double pigtailed stent. Recommendations: The findings of this examination were discussed with the patient as well as his mother. Okay for clear liquid diet tonight, nothing by mouth after midnight for possible cholecystectomy tomorrow. Continue to monitor LFTs. Patient will need repeat ERCP with stent removal in 6-8 weeks. Monitor for signs and symptoms of pancreatitis.
[2019-02-02 16:13] LABS: % Iron Saturation 32.45 (15.00-50.00)
[2019-02-02 17:00] LABS: Hepatitis A Antibody IgM Non-Reactive (Non-Reactive); Hepatitis B Core IgM Non-Reactive (Non-Reactive); Hepatitis B Surface AB- Quant 3.5 mIU/mL; Hepatitis B Surface Antibody Non-Reactive (Non-Reactive); Hepatitis B Surface Antigen Non-Reactive (Non-Reactive); Hepatitis C IgG Antibody Non-Reactive (Non-Reactive)
[2019-02-02 17:44] LABS: Ferritin 4653.7 ng/mL (22.0-322.0)
[2019-02-02] MEDS: MELATONIN 3 MG TABLET PO SCH ×2 (22:02→22:06)
[2019-02-02] MEDS: FOLIC ACID-VIT B COMPLEX-VIT C 1 CAP PO SCH (22:03)
[2019-02-03] MEDS: AMPICILLIN-SULBACTAM 1.5 GM in SODIUM CHLORIDE 0.9% 50 ML IVPB SCH ×3 (00:01→20:04)
[2019-02-03] MEDS: LEVOTHYROXINE 137 MCG TAB PO SCH (06:34)
[2019-02-03] MEDS: PANTOPRAZOLE 40 MG TABLET PO SCH ×2 (07:55→16:49)
[2019-02-03] MEDS: SUCRALFATE 1 GM TAB PO SCH ×4 (07:55→20:05)
[2019-02-03 08:06] LABS: Anisocytosis Slight; Basophils % (A) 1 %; Eosinophils # (A) 0.3 k/uL (0-0.7); Eosinophils % (A) 4 %; HCT 28.5 % (39.0-53.0); Lymphocytes # (A) 0.7 k/uL (1.0-4.8); Lymphocytes % (A) 11 %; MCH 31.2 pg (25.0-35.0); Mean Platelet Volume 5.9; Monocytes # (A) 0.3 k/uL (0-1.0); Monocytes % (A) 5 %; Neutrophils # (A) 5.1 k/uL (1.3-7.7); Neutrophils % (A) 78 %; Platelet Count 163 k/uL (150-450); Poikilocytosis Slight; RDW 17.5 % (11.5-15.5); WBC 6.5 k/uL (3.8-10.6)
[2019-02-03 08:17] LABS: Albumin 4.3 g/dL (3.5-5.0); Calcium 10.1 mg/dL (8.4-10.2); Potassium 3.9 mmol/L (3.5-5.1); Total Bilirubin 12.3 mg/dL (0.2-1.3); Total Protein 7.5 g/dL (6.3-8.2)
[2019-02-03] MEDS ORDERED: IV FLUID CONTINUATION 1,000 ML IV ONE (08:26)
[2019-02-03] MEDS ORDERED: ONDANSETRON 4 MG/2 ML VIAL IVP ONE (08:32)
[2019-02-03] MEDS ORDERED: HEPARIN SODIUM,PORCINE 5,000 UNIT/ML 1 ML VIAL SQ ONE (08:58)
[2019-02-03] MEDS ORDERED: PHENYLEPHRINE-0.9% NACL SYG 1 MG/10 ML SYRINGE ONE (09:25)
[2019-02-03] MEDS ORDERED: fentaNYL (PF) 50 MCG/ML 2 ML AMP ONE (09:25)
[2019-02-03] MEDS ORDERED: SUCCINYLCHOLINE CHLORIDE 100 MG/5 ML SYR IV ONE (09:25)
[2019-02-03] MEDS ORDERED: PROPOFOL 10 MG/ML 20 ML VIAL IV ONE (09:25)
[2019-02-03] MEDS ORDERED: MIDAZOLAM 2 MG/2 ML VIAL ONE (09:25)
[2019-02-03] MEDS ORDERED: BUPIVACAINE (PF) 0.25% 30 ML VIAL SQ ONE ×2 (09:53→09:56)
--- NOTE | 2019-02-03 10:37 | P.PN ---
Subjective Patient is seen in follow-up for acute kidney injury, currently hemodialysis dependent. Patient's last hemodialysis was on January 28. Currently resting in bed. Denies chest pain or shortness of breath. MRCP revealed choledocholithiasis. Scheduled for cholecystectomy today. No vomiting or diarrhea. He has been voiding. Creatinine up to 4.21 today. Vital signs are stable. General: The patient appeared well nourished and normally developed. HEENT: Head exam is unremarkable. Neck is without jugular venous distension. LUNGS: Lungs are clear to auscultation and percussion. Breath sounds decreased. HEART: Rate and Rhythm are regular. First and second heart sounds normal. No murmurs, rubs or gallops. ABDOMEN: Abdominal exam reveals normal bowel sounds. Non-tender and non- distended. No evidence of peritonitis. EXTREMITITES: No clubbing, cyanosis, or edema. Jaundice noted. Objective - Vital Signs Vital signs: Vital Signs Temp 97.8 F 02/03/19 08:23 Pulse 89 02/03/19 08:23 Resp 18 02/03/19 08:23 BP 116/63 02/03/19 08:23 Pulse Ox 100 02/03/19 08:23 Intake & Output 02/02/19 02/03/19 02/03/19 18:59 06:59 18:59 Intake Total 200 150 Balance 200 150 Weight 72.575 kg Intake: IV 200 150 Other: Voiding Method Toilet Toilet # Voids 2 1 - Labs CBC & Chem 7: 02/03/19 07:18 02/03/19 07:18 Labs: Abnormal Lab Results - Last 24 Hours (Table) 02/02/19 02/02/19 02/02/19 Range/Units 10:49 10:49 10:49 RBC 3.11 L (4.30-5.90) m/uL Hgb 9.7 L (13.0-17.5) gm/dL Hct 27.7 L (39.0-53.0) % RDW 17.4 H (11.5-15.5) % Lymphocytes # 0.3 L (1.0-4.8) k/uL Chloride 95 L (98-107) mmol/L Carbon Dioxide 33 H (22-30) mmol/L BUN 39 H (9-20) mg/dL Creatinine 3.52 H (0.66-1.25) mg/dL Calcium 10.3 H (8.4-10.2) mg/dL Phosphorus 6.1 H (2.5-4.5) mg/dL Ferritin 4653.7 H (22.0-322.0) ng/mL Total Bilirubin 18.8 H* (0.2-1.3) mg/dL Conjugated Bilirubin 12.6 H (0.0-0.3) mg/dL Unconjugated Bilirubin 2.9 H (0.0-1.1) mg/dL Delta Bilirubin 3.3 H (0.0-0.2) mg/dL AST 344 H (17-59) U/L ALT 519 H (21-72) U/L Alkaline Phosphatase 433 H (38-126) U/L 02/03/19 02/03/19 Range/Units 07:18 07:18 RBC 3.20 L (4.30-5.90) m/uL Hgb 10.0 L (13.0-17.5) gm/dL Hct 28.5 L (39.0-53.0) % RDW 17.5 H (11.5-15.5) % Lymphocytes # 0.7 L (1.0-4.8) k/uL Chloride 94 L (98-107) mmol/L Carbon Dioxide 31 H (22-30) mmol/L BUN 52 H (9-20) mg/dL Creatinine 4.21 H (0.66-1.25) mg/dL Calcium (8.4-10.2) mg/dL Phosphorus (2.5-4.5) mg/dL Ferritin (22.0-322.0) ng/mL Total Bilirubin 12.3 H (0.2-1.3) mg/dL Conjugated Bilirubin (0.0-0.3) mg/dL Unconjugated Bilirubin (0.0-1.1) mg/dL Delta Bilirubin (0.0-0.2) mg/dL AST 199 H (17-59) U/L ALT 411 H (21-72) U/L Alkaline Phosphatase 427 H (38-126) U/L Assessment and Plan Plan: Assessment: 1. Acute kidney injury, currently hemodialysis dependent. Etiology is ATN after mitral valve repair. He is maintained on hemodialysis on Thursday schedule. Creatinine 4.1 today. Last hemodialysis January 28. 2. Coffee-ground emesis with recurrent anemia requiring blood transfusions. GI following. Maintained on Aranesp. Iron replete. 3. Choledocholithiasis. Status post ERCP on February 02 with stent placement. Scheduled for cholecystectomy today. 4. Status post mitral valve repair at [facility] earlier this year. 5. Chronic kidney disease mineral bone disease maintained on PhosLo. 6. Hypercalcemia secondary to PhosLo. Plan: Will continue to hold off on hemodialysis and monitor renal function closely. Continue to assess on daily basis for further need for renal replacement therapy. Maintain Bumex. Discontinue PhosLo. Add Renvela with meals. Repeat electrolytes in the morning.
[2019-02-03] MEDS ORDERED: SODIUM CHLORIDE 0.9% 500 ML 500 ML IV ONE (10:53)
--- NOTE | 2019-02-03 11:00 | P.OP ---
Date of Procedure: 02/03/19 Preoperative Diagnosis: Cholecystitis Choledocholithiasis Postoperative Diagnosis: Cholecystitis Choledocholithiasis Procedure(s) Performed: Laparoscopic cholecystectomy Anesthesia: JOSE JUAN Surgeon: Gary Rosas Estimated Blood Loss (ml): 10 Pathology: other (Gallbladder) Condition: stable Disposition: PACU Description of Procedure: TThe patient was placed on the operating table. The patient received a general endotracheal tube anesthesia. The patients abdomen was prepped and draped in the usual sterile fashion. Through an infraumbilical stab incision, the fascia of the anterior abdominal wall was grasped with a pair of Kochers and then the Veress needle was placed in the peritoneal cavity. Position of the Veress needle was confirmed with positive drop test. The abdomen was then insufflated. After adequate insufflation, the 10 mm trocar was placed in the peritoneal cavity. Following this the laparoscope was placed in the peritoneal cavity. The patient was placed in the head-up, right side up position and then a 5 mm trocar was placed in the right lateral and right subcostal position under direct visualization. A 8 mm trocar was placed in the epigastric position. The gallbladder was grossly distended. The graspers unable to grasp the gallbladder due to thick wall. At this point using Harmonic scissors in opening the gallbladder was made in the gallbladder was suctioned there was a large amount of gallstones and thickened bile gallbladder. Then using the maxillary grasper the gallbladder was grasped and traction was placed the gallbladder cephalad.. The area of the mark hepatis was grossly inflamed. The cystic duct was grossly inflamed there was no way to make a critical view of safety. At this point decided to perform a subtotal cholecystectomy in order to prevent bile duct injury. The gallbladder was taken down in a dome down technique. Near the infundibulum the gallbladder 2-0 Ethibond suture was placed on the gallbladder was ligated with the tied knot device. 2 sutures used to ligate the gallbladder. Using the Harmonic scissors the gallbladder was then transected. The gallbladder was placed in 10 mm Endo Catch and then brought out through the 10 mm epigastric trocar site. The abdomen was irrigated. A MINA drains placed the gallbladder bed and brought out through the lateral 5 mm trocar site. The skin was closed with 3-0 Vicryl suture after the trochars withdrawn. Patient top she will was sent to recovery in stable condition.
[2019-02-03] MEDS ORDERED: HYDROmorphone 1 MG/ML 1 ML SYRINGE IM PRN (11:01)
[2019-02-03] MEDS ORDERED: HYDROmorphone 0.5 MG/0.5 ML SYRINGE IVP ONE ×2 (11:13→11:47)
[2019-02-03] MEDS: ASPIRIN 325 MG TAB PO SCH ×2 (12:27→12:40)
[2019-02-03] MEDS: FOLIC ACID 1 MG TAB PO SCH (12:28)
[2019-02-03] MEDS: MAGNESIUM OXIDE 400 MG TAB PO SCH ×2 (12:28→20:05)
[2019-02-03] MEDS: FERROUS SULFATE 325 MG TAB PO SCH (12:28)
[2019-02-03] MEDS: BUMETANIDE 1 MG TAB PO SCH ×2 (12:28→20:04)
[2019-02-03] MEDS: levETIRAcetam 500 MG TAB PO SCH ×2 (12:39→20:05)
[2019-02-03] MEDS: SEVELAMER 800 MG TAB PO SCH ×2 (12:39→16:49)
[2019-02-03] MEDS: SENNOSIDES-DOCUSATE SODIUM 1 EACH TAB PO SCH ×2 (12:40→20:08)
[2019-02-03] MEDS: MORPHINE SULFATE IR 15 MG TABLET PO PRN ×3 (12:47→20:04)
[2019-02-03] MEDS: CALCIUM ACETATE 667 MG CAP PO SCH (12:52)
--- NOTE | 2019-02-03 16:53 | P.PN ---
Subjective Progress Note Date: 02/03/19 (delayed charting seen at 1230) Principal diagnosis: intractable vomiting Patient is a 43-year-old male past medical history of a known mitral valve repair in September 2018 at [facility] secondary to infective endocarditis, located by an elevated lesion, acute kidney injury requiring hemodialysis, liver failure, and a GI bleed due to heparin requiring coiling. Ana bello has been following up with the nephrology clinic and has required multiple all patient transfusions. He presented here at the direction of nephrology for unit of blood on 1018 he was subsequently discharged on 1019. He refers on and on 01/31 secondary to abdominal pain and intractable nausea and vomiting. He had had multiple vomiting episodes the last of which appeared dark and he was worried there might be blood. On arrival here his vital signs were within normal limits, laboratory analysis showed hemoglobin of 8.9, BUN 41, creatinine 3.12, calcium 10.4, total bilirubin 12.7, AST 645, ALT 554, and alkaline phosphatase of 370. Abdominal ultrasound demonstrated acute cholecystitis with gallbladder wall thickening, debris within the common bile duct, enlarged common bile duct, Sridevi-Colace cystic fluid, and hyperechoic foci within the gallbladder. Surgery was consulted and the patient was admitted for possible acute cholecystitis. Surgery recommended emergent MRCP which showed cho ledocholithiasis, cholecystitis with cystic duct obstruction, hepatosplenic splenomegaly and bilateral pleural effusions. GI was therefore consulted. Patient underwent a hepatitis profile which was negative. He ultimately underwent an ERCP on 02/02 which showed choledocholithiasis with common bile duct sludge, and angiogram, sphincterotomy, and balloon sweep of the common bile duct with placement of a double pigtail stent was performed. He subsequently underwent a laparoscopic cholecystectomy on 02/03. He is being followed by nephrology as well has been holding his dialysis as it seems that he might have some renal recovery. Patient seen and examined at bedside. He tolerated his gallbladder removal well. He has not had any postoperative nausea, vomiting, lightheadedness, chest pain, or shortness of breath. He denies having any liver or renal issues prior to his hospitalization at [facility]. Objective - Vital Signs Vital signs: Vital Signs Temp 97.9 F 02/03/19 15:52 Pulse 91 02/03/19 15:52 Resp 18 02/03/19 15:52 BP 118/66 02/03/19 15:52 Pulse Ox 99 02/03/19 14:20 Intake & Output 02/02/19 02/03/19 02/03/19 18:59 06:59 18:59 Intake Total 200 750 Output Total 70 Balance 200 680 Weight 72.575 kg Intake: IV 200 750 Output: Drainage 50 Abdomen 50 Estimated Blood Loss 20 Other: Voiding Method Toilet Toilet # Voids 2 1 1 - Exam General: non toxic, no distress, appears at stated age Derm: + Jaundice warm, dry Head: atraumatic, normocephalic, symmetric Eyes: EOMI, no lid lag, + icteric sclera Mouth: no lip lesion, mucus membranes moist Cardiovascular: S1S2 reg, no murmur, positive posterior tibial pulse bilateral, Lungs: CTA bilateral, no rhonchi, no rales , no accessory muscle use Abdominal: soft, nontender to palpation, no guarding, no appreciable organomegaly Ext: no gross muscle atrophy, no edema, no contractures Neuro: CN II-XI grossly intact, no focal neuro deficits Psych: Alert, oriented, appropriate affect - Labs CBC & Chem 7: 02/03/19 07:18 02/03/19 07:18 Labs: Abnormal Lab Results - Last 24 Hours (Table) 02/02/19 02/03/19 02/03/19 Range/Units 10:49 07:18 07:18 RBC 3.20 L (4.30-5.90) m/uL Hgb 10.0 L (13.0-17.5) gm/dL Hct 28.5 L (39.0-53.0) % RDW 17.5 H (11.5-15.5) % Lymphocytes # 0.7 L (1.0-4.8) k/uL Chloride 94 L (98-107) mmol/L Carbon Dioxide 31 H (22-30) mmol/L BUN 52 H (9-20) mg/dL Creatinine 4.21 H (0.66-1.25) mg/dL Ferritin 4653.7 H (22.0-322.0) ng/mL Total Bilirubin 12.3 H (0.2-1.3) mg/dL AST 199 H (17-59) U/L ALT 411 H (21-72) U/L Alkaline Phosphatase 427 H (38-126) U/L Assessment and Plan Assessment: Acute cholecystitis secondary to cholangitis. Status post ERCP and cholecystectomy -Continue to monitor liver enzymes -Pain control, antiemetics -Change to low-fat diet -Further recommendations to follow - IV and sometimes additional 24 hours Acute hepatitis secondary to above -Avoid additional hepatotoxic agents -GI recommendations -Continue to follow liver enzymes Anemia -Undetermined etiology -Has received multiple units of blood over the last several months. -Maintained on Aranesp Acute kidney injury, currently hemodialysis dependent. Occurred secondary to ATN after mitral valve repair. With underlying chronic kidney disease and mineral bone disease. -Nephrology recommendations appreciated. Currently holding hemodialysis. -Continue with diuretics -Continue with Renvela -Follow basic metabolic profile Hypercalcemia, secondary to PhosLo -Continue to monitor Chronic: Status post mitral valve repair secondary to endocarditis History of CVA/TIA with no residual weakness Hypothyroidism - Obtain records from [facility] DVT prophylaxis: SCDs with concern for possible continued blood loss Discussed with: Patient, family, surgery Anticipated discharge: 4-[address]: Home A total of 45 minutes was spent on the care of this complex patient more than 50% of the time was spent in counseling and care coordination.
[2019-02-03 18:11] LABS: Anisocytosis Slight; HCT 26.3 % (39.0-53.0); HGB 9.1 gm/dL (13.0-17.5); MCH 31.1 pg (25.0-35.0); MCHC 34.6 g/dL (31.0-37.0); MCV 89.9 fL (80.0-100.0); Mean Platelet Volume 6.3; Platelet Count 147 k/uL (150-450); Poikilocytosis Slight; RBC 2.93 m/uL (4.30-5.90); RDW 17.7 % (11.5-15.5)
[2019-02-03 18:24] LABS: Prothrombin Time 10.5 sec (9.0-12.0)
[2019-02-03 18:25] LABS: Partial Thromboplastin Time 30.3 sec (22.0-30.0)
[2019-02-03] MEDS: FOLIC ACID-VIT B COMPLEX-VIT C 1 CAP PO SCH (20:05)
[2019-02-03] MEDS: MELATONIN 3 MG TABLET PO SCH (20:08)
[2019-02-03] MEDS: SODIUM CHLORIDE 0.9% 1,000 ML IV SCH (20:08)
[2019-02-04] MEDS: MORPHINE SULFATE IR 15 MG TABLET PO PRN ×4 (01:10→16:17)
[2019-02-04] MEDS: LEVOTHYROXINE 137 MCG TAB PO SCH (05:14)
--- NOTE | 2019-02-04 07:14 | P.PN ---
Subjective Progress Note Date: 02/03/19 Principal diagnosis: Elevated bilirubin, jaundice, choledocholithiasis Patient seen after cholecystectomy today doing well. Some abdominal tenderness appropriate after procedure. No nausea or vomiting. Objective - Vital Signs Vital signs: Vital Signs Temp 97.9 F 02/03/19 12:20 Pulse 88 02/03/19 14:20 Resp 16 02/03/19 12:20 BP 121/68 02/03/19 14:20 Pulse Ox 99 02/03/19 14:20 Intake & Output 02/02/19 02/03/19 02/03/19 18:59 06:59 18:59 Intake Total 200 750 Output Total 20 Balance 200 730 Weight 72.575 kg Intake: IV 200 750 Output: Estimated Blood Loss 20 Other: Voiding Method Toilet Toilet # Voids 2 1 - Exam On physical examination, patient appears comfortable in no apparent distress. HEAD: Normocephalic, atraumatic. EYES: Scleral icterus. No conjunctival injection. MOUTH: No lesions, tongue midline. NECK: Trachea midline, no gross abnormalities. CHEST: Clear to auscultation with no wheezing or rhonchi appreciated. ABDOMEN: Soft, appropriately tender. Bowel sounds are positive. No organomegaly. No guarding or rigidity. EXTREMITIES: No pedal edema. SKIN: No rashes, jaundice. NEUROLOGIC: Alert and oriented x3. No focal deficits. - Labs CBC & Chem 7: 02/03/19 17:51 02/03/19 07:18 Labs: Abnormal Lab Results - Last 24 Hours (Table) 02/02/19 02/03/19 02/03/19 Range/Units 10:49 07:18 07:18 RBC 3.20 L (4.30-5.90) m/uL Hgb 10.0 L (13.0-17.5) gm/dL Hct 28.5 L (39.0-53.0) % RDW 17.5 H (11.5-15.5) % Lymphocytes # 0.7 L (1.0-4.8) k/uL Chloride 94 L (98-107) mmol/L Carbon Dioxide 31 H (22-30) mmol/L BUN 52 H (9-20) mg/dL Creatinine 4.21 H (0.66-1.25) mg/dL Ferritin 4653.7 H (22.0-322.0) ng/mL Total Bilirubin 12.3 H (0.2-1.3) mg/dL AST 199 H (17-59) U/L ALT 411 H (21-72) U/L Alkaline Phosphatase 427 H (38-126) U/L Assessment and Plan (1) Elevated liver enzymes Narrative/Plan: 43-year-old male with multiple medical comorbidities including episode of infective endocarditis treated with mitral valve repair at [facility] with prolonged oscillation complicated by GI bleed, kidney and liver failure. He presented to the hospital due to concerns of dark vomitus and GI bleed and was found to have markedly elevated liver enzymes in both a cholestatic and hepatocellular pattern. Ultrasound of the abdomen did show findings of acute cholecystitis with debris in the common bile duct and a 1.2 cm dilated common bile duct. He was noted to have cholelithiasis during his hospitalization at [facility] which was not treated as the patient was asymptomatic. The patient was taken for ERCP with cholangiogram, sphincterotomy and balloon sweep of the duct significant for biliary sludge and choledocholithiasis with a double pigtail stent placed in the duct. Subsequently he had cholecystectomy today. Current Visit: Yes Status: Acute Code(s): R74.8 - ABNORMAL LEVELS OF OTHER SERUM ENZYMES SNOMED Code(s): 156944265 (2) Coffee ground emesis Current Visit: Yes Status: Acute Code(s): K92.0 - HEMATEMESIS SNOMED Code(s): 26168780 (3) Jaundice Current Visit: Yes Status: Acute Code(s): R17 - UNSPECIFIED JAUNDICE SNOMED Code(s): 77068474 (4) Upper GI bleed Current Visit: Yes Status: Acute Code(s): K92.2 - GASTROINTESTINAL HEMORRHAGE, UNSPECIFIED SNOMED Code(s): 41426593 (5) Choledocholithiasis Current Visit: Yes Status: Acute Code(s): K80.50 - CALCULUS OF BILE DUCT W/O CHOLANGITIS OR CHOLECYST W/O OBST SNOMED Code(s): 661680526 Plan: Supportive care Diet per the surgical service Continue to monitor CBC, CMP Report from cholecystectomy reviewed Patient will need repeat ERCP in 6-8 weeks for stent removal Thank you for allowing us to participate in the care of the patient, we will continue to follow
[2019-02-04] MEDS: SENNOSIDES-DOCUSATE SODIUM 1 EACH TAB PO SCH ×2 (08:07→20:44)
[2019-02-04] MEDS: FERROUS SULFATE 325 MG TAB PO SCH (08:07)
[2019-02-04] MEDS: MAGNESIUM OXIDE 400 MG TAB PO SCH ×2 (08:07→20:43)
[2019-02-04] MEDS: FOLIC ACID 1 MG TAB PO SCH (08:07)
[2019-02-04] MEDS: SUCRALFATE 1 GM TAB PO SCH ×4 (08:07→20:44)
[2019-02-04] MEDS: ASPIRIN 325 MG TAB PO SCH (08:07)
[2019-02-04] MEDS: SEVELAMER 800 MG TAB PO SCH ×3 (08:07→17:54)
[2019-02-04 08:10] LABS: Anisocytosis Slight; Basophils % (A) 1 %; Eosinophils # (A) 0.3 k/uL (0-0.7); Eosinophils % (A) 4 %; HCT 25.1 % (39.0-53.0); HGB 8.7 gm/dL (13.0-17.5); Lymphocytes # (A) 0.6 k/uL (1.0-4.8); Lymphocytes % (A) 8 %; MCH 31.1 pg (25.0-35.0); MCHC 34.5 g/dL (31.0-37.0); Mean Platelet Volume 6.2; Monocytes # (A) 0.4 k/uL (0-1.0); Monocytes % (A) 6 %; Neutrophils # (A) 6.2 k/uL (1.3-7.7); Neutrophils % (A) 81 %; Platelet Count 137 k/uL (150-450); Poikilocytosis Moderate; RBC 2.79 m/uL (4.30-5.90); RDW 17.6 % (11.5-15.5); WBC 7.6 k/uL (3.8-10.6)
[2019-02-04] MEDS: BUMETANIDE 1 MG TAB PO SCH ×2 (08:10→20:43)
[2019-02-04] MEDS: levETIRAcetam 500 MG TAB PO SCH ×2 (08:10→20:44)
[2019-02-04] MEDS: PANTOPRAZOLE 40 MG TABLET PO SCH ×2 (08:22→17:54)
[2019-02-04] MEDS: AMPICILLIN-SULBACTAM 1.5 GM in SODIUM CHLORIDE 0.9% 50 ML IVPB SCH ×2 (08:22→20:44)
[2019-02-04 08:31] LABS: Albumin 4.1 g/dL (3.5-5.0); Calcium 9.4 mg/dL (8.4-10.2); Total Bilirubin 6.1 mg/dL (0.2-1.3)
--- NOTE | 2019-02-04 08:44 | P.PN ---
Subjective Patient is seen in follow-up for acute kidney injury, currently hemodialysis dependent. Patient's last hemodialysis was on January 28. Currently resting in bed. Denies chest pain or shortness of breath. MRCP revealed choledocholithiasis. Underwent ERCP with stent placement as well as cholecystectomy this admission. No vomiting or diarrhea. He has been voiding. Renal function is stable. Creatinine 4.19 today. Vital signs are stable. General: The patient appeared well nourished and normally developed. HEENT: Head exam is unremarkable. Neck is without jugular venous distension. LUNGS: Lungs are clear to auscultation and percussion. Breath sounds decreased. HEART: Rate and Rhythm are regular. First and second heart sounds normal. No murmurs, rubs or gallops. ABDOMEN: Abdominal exam reveals normal bowel sounds. Non-tender and non- distended. No evidence of peritonitis. EXTREMITITES: No clubbing, cyanosis, or edema. Jaundice noted. Objective - Vital Signs Vital signs: Vital Signs Temp 98.4 F 02/04/19 07:00 Pulse 94 02/04/19 07:00 Resp 16 02/04/19 07:00 BP 93/52 02/04/19 07:00 Pulse Ox 96 02/04/19 07:00 Intake & Output 02/03/19 02/04/19 02/04/19 18:59 06:59 18:59 Intake Total 750 175 Output Total 70 50 20 Balance 680 125 -20 Weight 72.575 kg Intake: IV 750 Intake, IV Titration 175 Amount Sodium Chloride 0.9% 1, 175 000 ml @ 50 mls/hr IV . Q20H [facility] Rx#:[id number] Output: Drainage 50 50 20 Abdomen 50 50 20 Estimated Blood Loss 20 Other: Voiding Method Toilet Toilet # Voids 1 1 - Labs CBC & Chem 7: 02/04/19 07:34 02/04/19 07:34 Labs: Abnormal Lab Results - Last 24 Hours (Table) 02/03/19 02/03/19 02/04/19 Range/Units 17:51 17:51 07:34 RBC 2.93 L 2.79 L (4.30-5.90) m/uL Hgb 9.1 L 8.7 L (13.0-17.5) gm/dL Hct 26.3 L 25.1 L (39.0-53.0) % RDW 17.7 H 17.6 H (11.5-15.5) % Plt Count 147 L 137 L (150-450) k/uL Lymphocytes # 0.6 L (1.0-4.8) k/uL APTT 30.3 H (22.0-30.0) sec Chloride (98-107) mmol/L BUN (9-20) mg/dL Creatinine (0.66-1.25) mg/dL Glucose (74-99) mg/dL Total Bilirubin (0.2-1.3) mg/dL AST (17-59) U/L ALT (21-72) U/L Alkaline Phosphatase (38-126) U/L 02/04/19 Range/Units 07:34 RBC (4.30-5.90) m/uL Hgb (13.0-17.5) gm/dL Hct (39.0-53.0) % RDW (11.5-15.5) % Plt Count (150-450) k/uL Lymphocytes # (1.0-4.8) k/uL APTT (22.0-30.0) sec Chloride 95 L (98-107) mmol/L BUN 57 H (9-20) mg/dL Creatinine 4.19 H (0.66-1.25) mg/dL Glucose 109 H (74-99) mg/dL Total Bilirubin 6.1 H (0.2-1.3) mg/dL AST 142 H (17-59) U/L ALT 329 H (21-72) U/L Alkaline Phosphatase 328 H (38-126) U/L Assessment and Plan Plan: Assessment: 1. Acute kidney injury, currently hemodialysis dependent. Etiology is ATN after mitral valve repair. He is maintained on hemodialysis on Thursday schedule. Creatinine 4.19 today. Last hemodialysis January 28. 2. Coffee-ground emesis with recurrent anemia requiring blood transfusions. GI following. Maintained on Aranesp. Iron replete. 3. Choledocholithiasis. Status post ERCP on February 02 with stent placement. Status post cholecystectomy February 03. 4. Status post mitral valve repair at [facility] earlier this year. 5. Chronic kidney disease mineral bone disease maintained on PhosLo. 6. Hypercalcemia secondary to PhosLo. Better. Plan: Will continue to hold off on hemodialysis and monitor renal function closely. Continue to assess on daily basis for further need for renal replacement therapy. Maintain Bumex. PhosLo discontinued. Now on Renvela. Repeat electrolytes in the morning.
--- NOTE | 2019-02-04 12:54 | P.PN ---
Subjective Progress Note Date: 02/04/19 Principal diagnosis: Obstructive jaundice choledocholithiasis Feeling better status post ERCP with biliary stent and cholecystectomy. LFTs improving total bilirubin 6.1 previously 12.3. AST 142. ALT 329. AP 328. White count 7.6. Hemoglobin 8.7. Platelet 137. Objective - Vital Signs Vital signs: Vital Signs Temp 98.0 F 02/04/19 11:03 Pulse 87 02/04/19 11:03 Resp 17 02/04/19 11:03 BP 95/55 02/04/19 11:03 Pulse Ox 96 02/04/19 11:03 Intake & Output 02/03/19 02/04/19 02/04/19 18:59 06:59 18:59 Intake Total 750 175 Output Total 70 50 20 Balance 680 125 -20 Weight 72.575 kg Intake: IV 750 Intake, IV Titration 175 Amount Sodium Chloride 0.9% 1, 175 000 ml @ 50 mls/hr IV . Q20H [facility] Rx#:[id number] Output: Drainage 50 50 20 Abdomen 50 50 20 Estimated Blood Loss 20 Other: Voiding Method Toilet Toilet # Voids 1 1 - Exam General appearance: The patient is alert, oriented, in no acute distress. Jaundice. HET: Head is normocephalic and atraumatic. Pupils are equal and reactive. Sclerae icterus. Oropharynx is clear without lesions. Neck: Supple without lymphadenopathy. Trachea midline. Heart: S1 S2. Regular rate and rhythm. Lungs: No crackles or wheezes are heard. Abdomen: Soft, surgical dressing intact MINA was serosanguineous fluid mild abdominal incisional tenderness with bowel sounds. No peritoneal signs. No palpable organomegaly or masses. Extremities: Normal skin color and turgor. No cyanosis, rash, ulceration, clubbing, or edema. Radial and pedal pulses are 2/4 bilaterally. Neurological: No focal deficits. Strength and sensation are grossly intact. - Labs CBC & Chem 7: 02/04/19 07:34 02/04/19 07:34 Labs: Abnormal Lab Results - Last 24 Hours (Table) 02/03/19 02/03/19 02/04/19 Range/Units 17:51 17:51 07:34 RBC 2.93 L 2.79 L (4.30-5.90) m/uL Hgb 9.1 L 8.7 L (13.0-17.5) gm/dL Hct 26.3 L 25.1 L (39.0-53.0) % RDW 17.7 H 17.6 H (11.5-15.5) % Plt Count 147 L 137 L (150-450) k/uL Lymphocytes # 0.6 L (1.0-4.8) k/uL APTT 30.3 H (22.0-30.0) sec Chloride (98-107) mmol/L BUN (9-20) mg/dL Creatinine (0.66-1.25) mg/dL Glucose (74-99) mg/dL Total Bilirubin (0.2-1.3) mg/dL AST (17-59) U/L ALT (21-72) U/L Alkaline Phosphatase (38-126) U/L 02/04/19 Range/Units 07:34 RBC (4.30-5.90) m/uL Hgb (13.0-17.5) gm/dL Hct (39.0-53.0) % RDW (11.5-15.5) % Plt Count (150-450) k/uL Lymphocytes # (1.0-4.8) k/uL APTT (22.0-30.0) sec Chloride 95 L (98-107) mmol/L BUN 57 H (9-20) mg/dL Creatinine 4.19 H (0.66-1.25) mg/dL Glucose 109 H (74-99) mg/dL Total Bilirubin 6.1 H (0.2-1.3) mg/dL AST 142 H (17-59) U/L ALT 329 H (21-72) U/L Alkaline Phosphatase 328 H (38-126) U/L Assessment and Plan (1) Obstructive jaundice Narrative/Plan: 43-year-old male with a history of multiple medical comorbidities including episode of infective endocarditis treated with [facility], located by GI bleed kidney and liver failure. Admitted with coffee-ground emesis GI bleed elevated liver enzymes. Ultimately abdomen reported acute cholecystitis with debris in the common bile duct status post ERCP with sphincterotomy balloon sweep double-pigtail stent placement with improvement of liver function test f ollowed by cholecystectomy. Presently no evidence of active GI bleed. Current Visit: Yes Status: Acute Code(s): K83.1 - OBSTRUCTION OF BILE DUCT SNOMED Code(s): 15812223 Plan: 1. Continue present medical therapy and supportive measures. Continue to monitor CBC and CMP. Outpatient follow-up in 4 weeks with stent removal and 68 weeks. Assessment and plan a care discussed with Dr. Rouse
--- NOTE | 2019-02-04 14:03 | P.PN ---
Subjective Progress Note Date: 02/04/19 CHIEF COMPLAINT: Cholecystitis HISTORY OF PRESENT ILLNESS: Patient examined this morning at the bedside. S/P cholecystectomy. Abdominal pain is tolerable. Denies nausea or vomiting. WBC 7.6. hemoglobin 8.7. Bilirubin 6.1. AST 142. ALT 329. PHYSICAL EXAM: VITAL SIGNS: Reviewed. GENERAL: Well-developed in no acute distress. Jaundice. HEENT: Sclera icterus. Extraocular movements grossly intact. Moist buccal mucosa. Head is atraumatic, normocephalic. ABDOMEN: Soft. Nondistended. Nontender. Laparoscopic surgical sites clean dry and intact. MINA drain with serosanguineous drainage. No bile in MINA. NEUROLOGIC: Alert and oriented. Cranial nerves II through XII grossly intact. ASSESSMENT: 1. Epigastric pain, nausea, vomiting 2. Acute Cholecystitis 3. Hyperbilirubinemia 4. Transaminitis 5. Obstructive jaundice 6. Choledocholithiasis PLAN: Continue diet as tolerated Pain control Monitor labs Nurse practitioner note has been reviewed by physician. Signing provider agrees with the documented findings, assessment, and plan of care. Objective - Vital Signs Vital signs: Vital Signs Temp 98.0 F 02/04/19 11:03 Pulse 87 02/04/19 11:03 Resp 17 02/04/19 11:03 BP 95/55 02/04/19 11:03 Pulse Ox 96 02/04/19 11:03 Intake & Output 02/03/19 02/04/19 02/04/19 18:59 06:59 18:59 Intake Total 750 175 Output Total 70 50 20 Balance 680 125 -20 Weight 72.575 kg Intake: IV 750 Intake, IV Titration 175 Amount Sodium Chloride 0.9% 1, 175 000 ml @ 50 mls/hr IV . Q20H [facility] Rx#:[id number] Output: Drainage 50 50 20 Abdomen 50 50 20 Estimated Blood Loss 20 Other: Voiding Method Toilet Toilet # Voids 1 1 - Labs CBC & Chem 7: 02/04/19 07:34 02/04/19 07:34 Labs: Abnormal Lab Results - Last 24 Hours (Table) 02/03/19 02/03/19 02/04/19 Range/Units 17:51 17:51 07:34 RBC 2.93 L 2.79 L (4.30-5.90) m/uL Hgb 9.1 L 8.7 L (13.0-17.5) gm/dL Hct 26.3 L 25.1 L (39.0-53.0) % RDW 17.7 H 17.6 H (11.5-15.5) % Plt Count 147 L 137 L (150-450) k/uL Lymphocytes # 0.6 L (1.0-4.8) k/uL APTT 30.3 H (22.0-30.0) sec Chloride (98-107) mmol/L BUN (9-20) mg/dL Creatinine (0.66-1.25) mg/dL Glucose (74-99) mg/dL Total Bilirubin (0.2-1.3) mg/dL AST (17-59) U/L ALT (21-72) U/L Alkaline Phosphatase (38-126) U/L 02/04/19 Range/Units 07:34 RBC (4.30-5.90) m/uL Hgb (13.0-17.5) gm/dL Hct (39.0-53.0) % RDW (11.5-15.5) % Plt Count (150-450) k/uL Lymphocytes # (1.0-4.8) k/uL APTT (22.0-30.0) sec Chloride 95 L (98-107) mmol/L BUN 57 H (9-20) mg/dL Creatinine 4.19 H (0.66-1.25) mg/dL Glucose 109 H (74-99) mg/dL Total Bilirubin 6.1 H (0.2-1.3) mg/dL AST 142 H (17-59) U/L ALT 329 H (21-72) U/L Alkaline Phosphatase 328 H (38-126) U/L
[2019-02-04 15:12] VITALS: BMI 20.5
[2019-02-04] MEDS: SODIUM CHLORIDE 0.9% 1,000 ML IV SCH (16:18)
--- NOTE | 2019-02-04 20:31 | P.PN ---
Subjective Progress Note Date: 02/04/19 (delayed charting seen at 0915) Principal diagnosis: intractable vomiting Patient is a 43-year-old male past medical history of a known mitral valve repair in September 2018 at [facility] secondary to infective endocarditis, located by an elevated lesion, acute kidney injury requiring hemodialysis, liver failure, and a GI bleed due to heparin requiring coiling. Ana bello has been following up with the nephrology clinic and has required multiple all patient transfusions. He presented here at the direction of nephrology for unit of blood on 1018 he was subsequently discharged on 1019. He refers on and on 01/31 secondary to abdominal pain and intractable nausea and vomiting. He had had multiple vomiting episodes the last of which appeared dark and he was worried there might be blood. On arrival here his vital signs were within normal limits, laboratory analysis showed hemoglobin of 8.9, BUN 41, creatinine 3.12, calcium 10.4, total bilirubin 12.7, AST 645, ALT 554, and alkaline phosphatase of 370. Abdominal ultrasound demonstrated acute cholecystitis with gallbladder wall thickening, debris within the common bile duct, enlarged common bile duct, Sridevi-Colace cystic fluid, and hyperechoic foci within the gallbladder. Surgery was consulted and the patient was admitted for possible acute cholecystitis. Surgery recommended emergent MRCP which showed cho ledocholithiasis, cholecystitis with cystic duct obstruction, hepatosplenic splenomegaly and bilateral pleural effusions. GI was therefore consulted. Patient underwent a hepatitis profile which was negative. He ultimately underwent an ERCP on 02/02 which showed choledocholithiasis with common bile duct sludge, and angiogram, sphincterotomy, and balloon sweep of the common bile duct with placement of a double pigtail stent was performed. He subsequently underwent a laparoscopic cholecystectomy on 02/03. He is being followed by nephrology as well has been holding his dialysis as it seems that he might have some renal recovery. Patient seen and examined at bedside. Tolerating diet, still no flatus or stool, no nausea or vomiting, pain control. Family present at bedside all questions answered. Objective - Vital Signs Vital signs: Vital Signs Temp 98.4 F 02/04/19 14:26 Pulse 88 02/04/19 14:26 Resp 15 02/04/19 14:26 BP 98/57 02/04/19 14:26 Pulse Ox 99 02/04/19 14:26 Intake & Output 02/04/19 02/04/19 02/05/19 06:59 18:59 06:59 Intake Total 175 400 Output Total 50 40 Balance 125 360 Weight 72.575 kg Intake: IV 400 Sodium Chloride 0.9% 1, 400 000 ml @ 50 mls/hr IV . Q20H [facility] Rx#:[id number] Intake, IV Titration 175 Amount Sodium Chloride 0.9% 1, 175 000 ml @ 50 mls/hr IV . Q20H [facility] Rx#:[id number] Output: Drainage 50 40 Abdomen 50 40 Other: Voiding Method Toilet Toilet # Voids 1 - Exam General: non toxic, no distress, appears at stated age Derm: + Jaundice warm, dry Head: atraumatic, normocephalic, symmetric Eyes: EOMI, no lid lag, + icteric sclera Mouth: no lip lesion, mucus membranes moist Cardiovascular: S1S2 reg, no murmur, positive posterior tibial pulse bilateral, Lungs: CTA bilateral, no rhonchi, no rales , no accessory muscle use Abdominal: soft, +tender to palpation RUQ, MINA drain in place with sanguanous drainage, no guarding, no appreciable organomegaly Ext: no gross muscle atrophy, no edema, no contractures Neuro: CN II-XI grossly intact, no focal neuro deficits Psych: Alert, oriented, appropriate affect - Labs CBC & Chem 7: 02/04/19 07:34 02/04/19 07:34 Labs: Abnormal Lab Results - Last 24 Hours (Table) 02/04/19 02/04/19 Range/Units 07:34 07:34 RBC 2.79 L (4.30-5.90) m/uL Hgb 8.7 L (13.0-17.5) gm/dL Hct 25.1 L (39.0-53.0) % RDW 17.6 H (11.5-15.5) % Plt Count 137 L (150-450) k/uL Lymphocytes # 0.6 L (1.0-4.8) k/uL Chloride 95 L (98-107) mmol/L BUN 57 H (9-20) mg/dL Creatinine 4.19 H (0.66-1.25) mg/dL Glucose 109 H (74-99) mg/dL Total Bilirubin 6.1 H (0.2-1.3) mg/dL AST 142 H (17-59) U/L ALT 329 H (21-72) U/L Alkaline Phosphatase 328 H (38-126) U/L Assessment and Plan Assessment: Acute cholecystitis secondary to cholangitis. Status post ERCP and cholecystectomy -Continue to monitor liver enzymes -Pain control, antiemetics - low-fat diet -Further recommendations to follow - IV abx per GI. Likely can stop in AM Acute hepatitis secondary to above -Avoid additional hepatotoxic agents -GI recommendations -Continue to follow liver enzymes Anemia - follow CBC -Undetermined etiology - check haptoglobin and LDH to rule out hemolysis, await echo results from [facility] -Has received multiple units of blood over the last several months. -Maintained on Aranesp Acute kidney injury, currently hemodialysis dependent. Occurred secondary to ATN after mitral valve repair. With underlying chronic kidney disease and mineral bone disease. - recheck on Thursday to determine if needs continued dialysis per nephrology, HD Currently on hold -Continue with diuretics -Continue with Renvela -Follow basic metabolic profile Chronic: Status post mitral valve repair secondary to endocarditis History of CVA/TIA with no residual weakness Hypothyroidism Hypercalcemia, secondary to PhosLo, resolved - Obtained records from [facility] are incomplete. DVT prophylaxis: SCDs with concern for possible continued blood loss Discussed with: Patient, family Anticipated discharge: 2-[address]: Home A total of 35 minutes was spent on the care of this complex patient more than 50% of the time was spent in counseling and care coordination.
[2019-02-04] MEDS: FOLIC ACID-VIT B COMPLEX-VIT C 1 CAP PO SCH (20:43)
[2019-02-04] MEDS: MELATONIN 3 MG TABLET PO SCH (20:44)
[2019-02-05] MEDS: LEVOTHYROXINE 137 MCG TAB PO SCH (05:38)
[2019-02-05 07:42] LABS: Anisocytosis Slight; Basophils # (A) 0.1 k/uL (0-0.2); Basophils % (A) 1 %; Eosinophils # (A) 0.2 k/uL (0-0.7); Eosinophils % (A) 3 %; HCT 21.1 % (39.0-53.0); Lymphocytes # (A) 0.6 k/uL (1.0-4.8); Lymphocytes % (A) 10 %; MCHC 34.1 g/dL (31.0-37.0); MCV 90.8 fL (80.0-100.0); Mean Platelet Volume 6.9; Monocytes # (A) 0.4 k/uL (0-1.0); Monocytes % (A) 5 %; Neutrophils # (A) 5.2 k/uL (1.3-7.7); Neutrophils % (A) 80 %; Platelet Count 127 k/uL (150-450); Poikilocytosis Moderate; RBC 2.33 m/uL (4.30-5.90); RDW 17.2 % (11.5-15.5); WBC 6.5 k/uL (3.8-10.6)
[2019-02-05 07:52] LABS: HGB 7.2 gm/dL (13.0-17.5)
[2019-02-05] MEDS: SEVELAMER 800 MG TAB PO SCH ×3 (08:09→17:27)
[2019-02-05] MEDS: FOLIC ACID 1 MG TAB PO SCH (08:09)
[2019-02-05] MEDS: SUCRALFATE 1 GM TAB PO SCH ×4 (08:09→20:16)
[2019-02-05] MEDS: PANTOPRAZOLE 40 MG TABLET PO SCH ×2 (08:09→17:27)
[2019-02-05] MEDS: FERROUS SULFATE 325 MG TAB PO SCH (08:09)
[2019-02-05] MEDS: MAGNESIUM OXIDE 400 MG TAB PO SCH ×2 (08:09→20:16)
[2019-02-05] MEDS: ASPIRIN 325 MG TAB PO SCH (08:09)
[2019-02-05] MEDS: SENNOSIDES-DOCUSATE SODIUM 1 EACH TAB PO SCH ×2 (08:10→20:16)
[2019-02-05] MEDS: levETIRAcetam 500 MG TAB PO SCH ×2 (08:10→20:16)
[2019-02-05] MEDS: AMPICILLIN-SULBACTAM 1.5 GM in SODIUM CHLORIDE 0.9% 50 ML IVPB SCH (08:17)
[2019-02-05 08:44] LABS: Albumin 3.8 g/dL (3.5-5.0); Calcium 9.2 mg/dL (8.4-10.2); Potassium 3.9 mmol/L (3.5-5.1); Total Bilirubin 4.8 mg/dL (0.2-1.3); Total Protein 6.6 g/dL (6.3-8.2)
--- NOTE | 2019-02-05 10:55 | NM ---
EXAMINATION TYPE: NM GI bleeding DATE OF EXAM: 02/05/2019 HISTORY: Nausea, vomiting and diarrhea. COMPARISON: NONE Following administration of 3 ml PYP 25.0 mCi Tc 99m Sodium Pertechnete. Immediate images post inject ion. FINDINGS: Flow studies normal. Delayed images show minimal increased activity in the region of the rectum on th e delayed images. The source of bleeding has not been identified.. IMPRESSION: Although there is some increased activity in the region of the rectum on the delayed images, no discr ete sign of active bleeding is seen.
[2019-02-05] MEDS: BUMETANIDE 1 MG TAB PO SCH ×2 (11:13→20:16)
[2019-02-05] MEDS: SODIUM CHLORIDE 0.9% 1,000 ML IV SCH (11:16)
--- NOTE | 2019-02-05 11:32 | P.PN ---
Subjective Progress Note Date: 02/05/19 Principal diagnosis: Cholecystitis 43-year-old male underwent recent cholecystectomy. Doing well at this time. Hemoglobin today was down to 7.2. A tagged RBC scan was ordered as the patient apparently had recent occult GI bleeding that required angiogram with coil embolization. Patient denies rectal bleeding or melena. Says his pain is mild. Today's liver enzymes improved. MINA drain serosanguineous. Objective - Vital Signs Vital signs: Vital Signs Temp 97.8 F 02/05/19 07:00 Pulse 88 02/05/19 07:00 Resp 16 02/05/19 07:00 BP 92/51 02/05/19 07:00 Pulse Ox 98 02/05/19 07:00 Intake & Output 02/04/19 02/05/19 02/05/19 18:59 06:59 18:59 Intake Total 400 400 Output Total 40 Balance 360 400 Weight 72.575 kg Intake: IV 400 Sodium Chloride 0.9% 1, 400 000 ml @ 50 mls/hr IV . Q20H [facility] Rx#:[id number] Intake, IV Titration 400 Amount Sodium Chloride 0.9% 1, 400 000 ml @ 50 mls/hr IV . Q20H [facility] Rx#:[id number] Output: Drainage 40 Abdomen 40 Other: Voiding Method Toilet Toilet - Exam Abdomen: Soft, nondistended, mild tenderness - Labs CBC & Chem 7: 02/05/19 07:17 02/05/19 07:17 Labs: Abnormal Lab Results - Last 24 Hours (Table) 02/05/19 02/05/19 Range/Units 07:17 07:17 RBC 2.33 L (4.30-5.90) m/uL Hgb 7.2 L D (13.0-17.5) gm/dL Hct 21.1 L (39.0-53.0) % RDW 17.2 H (11.5-15.5) % Plt Count 127 L (150-450) k/uL Lymphocytes # 0.6 L (1.0-4.8) k/uL Chloride 95 L (98-107) mmol/L BUN 61 H (9-20) mg/dL Creatinine 4.11 H (0.66-1.25) mg/dL Glucose 105 H (74-99) mg/dL Total Bilirubin 4.8 H (0.2-1.3) mg/dL AST 89 H (17-59) U/L ALT 236 H (21-72) U/L Alkaline Phosphatase 240 H (38-126) U/L Assessment and Plan (1) Choledocholithiasis Narrative/Plan: Patient overall seems to be doing better. Await tagged RBC scan. Advance diet. Increase activity. Current Visit: Yes Status: Acute Code(s): K80.50 - CALCULUS OF BILE DUCT W/O CHOLANGITIS OR CHOLECYST W/O OBST SNOMED Code(s): 364764233
--- NOTE | 2019-02-05 13:47 | P.PN ---
Subjective Progress Note Date: 02/05/19 (delayed charting seen at 1040) Principal diagnosis: intractable vomiting Patient is a 43-year-old male past medical history of a known mitral valve repair in September 2018 at [facility] secondary to infective endocarditis, located by an elevated lesion, acute kidney injury requiring hemodialysis, liver failure, and a GI bleed due to heparin requiring coiling. Ana bello has been following up with the nephrology clinic and has required multiple all patient transfusions. He presented here at the direction of nephrology for unit of blood on 1018 he was subsequently discharged on 1019. He refers on and on 01/31 secondary to abdominal pain and intractable nausea and vomiting. He had had multiple vomiting episodes the last of which appeared dark and he was worried there might be blood. On arrival here his vital signs were within normal limits, laboratory analysis showed hemoglobin of 8.9, BUN 41, creatinine 3.12, calcium 10.4, total bilirubin 12.7, AST 645, ALT 554, and alkaline phosphatase of 370. Abdominal ultrasound demonstrated acute cholecystitis with gallbladder wall thickening, debris within the common bile duct, enlarged common bile duct, Sridevi-Colace cystic fluid, and hyperechoic foci within the gallbladder. Surgery was consulted and the patient was admitted for possible acute cholecystitis. Surgery recommended emergent MRCP which showed cho ledocholithiasis, cholecystitis with cystic duct obstruction, hepatosplenic splenomegaly and bilateral pleural effusions. GI was therefore consulted. Patient underwent a hepatitis profile which was negative. He ultimately underwent an ERCP on 02/02 which showed choledocholithiasis with common bile duct sludge, and angiogram, sphincterotomy, and balloon sweep of the common bile duct with placement of a double pigtail stent was performed. He subsequently underwent a laparoscopic cholecystectomy on 02/03. He is being followed by nephrology as well has been holding his dialysis as it seems that he might have some renal recovery. On the morning of 02/05 hemoglobin again down trended to 7.2 without definitive cause. Underwent tagged red blood cell scan which was negative. Hematology consulted. Patient seen and examined at bedside. Tolerating diet, stomal bowel movement, no nausea, feeling better daily. Still some weakness. Objective - Vital Signs Vital signs: Vital Signs Temp 97.8 F 02/05/19 07:00 Pulse 88 02/05/19 07:00 Resp 16 02/05/19 07:00 BP 92/51 02/05/19 07:00 Pulse Ox 98 02/05/19 07:00 Intake & Output 02/04/19 02/05/19 02/05/19 18:59 06:59 18:59 Intake Total 400 400 Output Total 40 Balance 360 400 Weight 72.575 kg Intake: IV 400 Sodium Chloride 0.9% 1, 400 000 ml @ 50 mls/hr IV . Q20H [facility] Rx#:[id number] Intake, IV Titration 400 Amount Sodium Chloride 0.9% 1, 400 000 ml @ 50 mls/hr IV . Q20H [facility] Rx#:[id number] Output: Drainage 40 Abdomen 40 Other: Voiding Method Toilet Toilet - Exam General: non toxic, no distress, appears at stated age Derm: + Jaundice warm, dry Head: atraumatic, normocephalic, symmetric Eyes: EOMI, no lid lag, + icteric sclera Mouth: no lip lesion, mucus membranes moist Cardiovascular: S1S2 reg, no murmur, positive posterior tibial pulse bilateral, Lungs: CTA bilateral, no rhonchi, no rales , no accessory muscle use Abdominal: soft, nontender to palpation, MINA drain in place with sanguanous d rainage no leaking on the drainage to leaking from surgical site, no guarding, no appreciable organomegaly Ext: no gross muscle atrophy, no edema, no contractures Neuro: CN II-XI grossly intact, no focal neuro deficits Psych: Alert, oriented, appropriate affect - Labs CBC & Chem 7: 02/05/19 07:17 02/05/19 07:17 Labs: Abnormal Lab Results - Last 24 Hours (Table) 02/05/19 02/05/19 Range/Units 07:17 07:17 RBC 2.33 L (4.30-5.90) m/uL Hgb 7.2 L D (13.0-17.5) gm/dL Hct 21.1 L (39.0-53.0) % RDW 17.2 H (11.5-15.5) % Plt Count 127 L (150-450) k/uL Lymphocytes # 0.6 L (1.0-4.8) k/uL Chloride 95 L (98-107) mmol/L BUN 61 H (9-20) mg/dL Creatinine 4.11 H (0.66-1.25) mg/dL Glucose 105 H (74-99) mg/dL Total Bilirubin 4.8 H (0.2-1.3) mg/dL AST 89 H (17-59) U/L ALT 236 H (21-72) U/L Alkaline Phosphatase 240 H (38-126) U/L Assessment and Plan Assessment: Acute cholecystitis secondary to cholangitis. Status post ERCP and cholecystectomy -Continue to monitor liver enzymes -Pain control, antiemetics - low-fat diet - off unasyn - no signs of bruising or bleeding Anemia, worsening - follow CBC -Undetermined etiology, Tagged RBC negative hx of GI bleed with coiling in , again requested records from [facility] - LDH normal, haptoglobin pending - Check ECHO -Has received multiple units of blood over the last several months. -Maintained on Aranesp - Ferritin normal - Consult Heme/Onc.. Also was on 6 weeks ABX in for infective endocarditis, underwent valve repair which resulted with severe LV dysfunction necessitating balloon pump and then LVAD, echo, and then dialysis. Appears to have had GI bleed requiring Coiling during that same time. Acute hepatitis secondary to above -Avoid additional hepatotoxic agents, Hepatitis profile negative -GI recommendations appreciated -Continue to follow liver enzymes Acute kidney injury, currently hemodialysis dependent. Occurred secondary to ATN after mitral valve repair. With underlying chronic kidney disease and mineral bone disease. - recheck on Thursday to determine if needs continued dialysis per nephrology, HD Currently on hold -Continue with diuretics -Continue with Renvela -Follow basic metabolic profile Chronic: Status post mitral valve repair secondary to endocarditis History of CVA/TIA with no residual weakness Hypothyroidism Hypercalcemia, secondary to PhosLo, resolved - Obtained records from [facility] are incomplete. await remainder of records. DVT prophylaxis: SCDs with concern for possible continued blood loss Discussed with: Patient, family Anticipated discharge: 1-[address]: Home A total of 35 minutes was spent on the care of this complex patient more than 50% of the time was spent in counseling and care coordination.
--- NOTE | 2019-02-05 13:58 | PN ---
PROGRESS NOTE Patient is seen for followup for acute kidney injury. Patient was hemodialysis dependent. His dialysis has currently been on hold for about one week. The patient's creatinine staying at about 4 mg/dL. He has had good urine output. Mentation is intact. PHYSICAL EXAMINATION: Blood pressure this morning was 92/51, heart rate 88 per minute he is afebrile. Examination of the heart S1, S2. Examination of the lungs, bilateral breath sounds are heard. Abdomen is soft, non-tender. Examination of lower extremities shows no significant edema. LABS: Show sodium 137, potassium 3.9, BUN 61, creatinine 4.1, hemoglobin 7.2 g/dL. ASSESSMENT: 1. Acute kidney injury, acute tubular necrosis, currently nonoliguric. The patient had been hemodialysis dependent, currently holding off on hemodialysis for the past one week with stable renal function. Last dialysis was January 28. 2. Coffee-ground emesis with recurrent anemia requiring blood transfusions, being followed by GI. Maintained on Aranesp. No evidence of iron deficiency. 3. Choledocholithiasis, status post ERCP with stent placement and status post cholecystectomy on February 03. 4. Status post mitral valve repair at [facility] earlier this year. 5. Chronic kidney disease mineral bone disorder. 6. Hypercalcemia associated with calcium based phosphate binders, now improved, maintained on Renvela. PLAN: Continue with Bumex. Continue to hold off on dialysis. Repeat labs in a.m.. MMODL / IJN: [id number] /
--- NOTE | 2019-02-05 14:43 | PN ---
PROGRESS NOTE DATE OF SERVICE: 02/05/2019 Patient is a 43-year-old pleasant white male admitted to hospital with abdominal pain associated with nausea, vomiting, and elevated LFTs and jaundice. He underwent an ERCP by Dr. Acosta 3 days ago and was noted to have CBD stones and CBD sludge for which he underwent ERCP with biliary sphincterotomy, stone extraction, and CBD stent placement. He is doing much better. He underwent gallbladder surgery by Dr. Rosas 2 days ago. He states that overall he is feeling better. He dropped his hemoglobin from 8.7 to 7.2 g/dL. He denies any nausea, vomiting, rectal bleeding or melena. He has a MINA drain in place draining some serosanguineous fluid. PHYSICAL EXAMINATION: He appears comfortable. No apparent distress. VITAL SIGNS: Stable. Blood pressure is 92/51, pulse rate 88, temperature 97.8. HEENT examination unremarkable. Conjunctivae pink. Sclerae anicteric. Oral cavity, no lesions. NECK: No JVD. No lymph node enlargement. CHEST: Clear to auscultation. HEART: Regular rate and rhythm. ABDOMEN: Soft. Bowel sounds are positive. There was mild tenderness in the right upper quadrant area. EXTREMITIES: No pedal edema. SKIN: No rashes. NEUROLOGIC: Alert and oriented x3. No focal deficits. LABS: Done today, WBC 6.5, hemoglobin 7.2, platelets are 127, BUN is 61, creatinine 4.11, bilirubin is down to 4.8, AST and ALT 89 and 236 respectively, and alkaline phosphatase is 241. IMPRESSION: 1. Elevated LFTs and jaundice status post ERCP which revealed choledocholithiasis. He underwent a sphincterotomy and balloon stone extraction with CBD stent placement and serum transaminases are gradually improving. T bilirubin is down to 4.7 g/dL. 2. Status post gallbladder surgery 2 days ago with a MINA drain in place. 3. Anemia with drop in hemoglobin, but clinically no evidence of active bleeding. Patient underwent a tagged RBC scan today which was negative. 4. 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 5. Chronic kidney disease, stable. RECOMMENDATION: 1. Continue to monitor serum transaminases today. 2. Monitor hemoglobin daily. Most likely anemia is related to anemia of chronic disease. Clinically no evidence of active ongoing bleeding. 3. Repeat labs in the morning and will follow with you closely during his hospital stay. Thank you for this consultation. ANDRZEJL / IJN: [id number] /
[2019-02-05] MEDS: MELATONIN 3 MG TABLET PO SCH (20:16)
[2019-02-05] MEDS: FOLIC ACID-VIT B COMPLEX-VIT C 1 CAP PO SCH (20:16)
[2019-02-06] MEDS: SODIUM CHLORIDE 0.9% 1,000 ML IV SCH (05:25)
[2019-02-06] MEDS: LEVOTHYROXINE 137 MCG TAB PO SCH (05:40)
[2019-02-06 07:07] LABS: Anisocytosis Slight; Basophils % (A) 0 %; Eosinophils # (A) 0.2 k/uL (0-0.7); Eosinophils % (A) 4 %; Lymphocytes # (A) 0.6 k/uL (1.0-4.8); Lymphocytes % (A) 10 %; MCH 31.4 pg (25.0-35.0); MCHC 34.9 g/dL (31.0-37.0); MCV 90.1 fL (80.0-100.0); Monocytes # (A) 0.3 k/uL (0-1.0); Monocytes % (A) 5 %; Neutrophils # (A) 4.8 k/uL (1.3-7.7); Neutrophils % (A) 80 %; Platelet Count 117 k/uL (150-450); Poikilocytosis Moderate; RBC 2.06 m/uL (4.30-5.90); RDW 17.4 % (11.5-15.5)
[2019-02-06 07:21] LABS: Albumin 3.4 g/dL (3.5-5.0); Calcium 9.1 mg/dL (8.4-10.2); Potassium 4.2 mmol/L (3.5-5.1); Total Bilirubin 4.2 mg/dL (0.2-1.3); Total Protein 6.1 g/dL (6.3-8.2)
[2019-02-06] MEDS: ASPIRIN 325 MG TAB PO SCH (07:30)
[2019-02-06] MEDS: PANTOPRAZOLE 40 MG TABLET PO SCH ×2 (07:30→17:36)
[2019-02-06] MEDS: MAGNESIUM OXIDE 400 MG TAB PO SCH ×2 (07:30→20:57)
[2019-02-06] MEDS: FOLIC ACID 1 MG TAB PO SCH (07:30)
[2019-02-06] MEDS: SENNOSIDES-DOCUSATE SODIUM 1 EACH TAB PO SCH ×2 (07:30→20:56)
[2019-02-06] MEDS: BUMETANIDE 1 MG TAB PO SCH ×2 (07:31→20:58)
[2019-02-06] MEDS: SUCRALFATE 1 GM TAB PO SCH ×4 (07:31→20:56)
[2019-02-06] MEDS: SEVELAMER 800 MG TAB PO SCH ×3 (07:31→17:32)
[2019-02-06] MEDS: levETIRAcetam 500 MG TAB PO SCH ×2 (07:31→20:59)
[2019-02-06] MEDS: FERROUS SULFATE 325 MG TAB PO SCH (07:31)
[2019-02-06 07:40] LABS: HCT 18.6 % (39.0-53.0); HGB 6.5 gm/dL (13.0-17.5)
--- NOTE | 2019-02-06 10:16 | P.PN ---
Subjective Progress Note Date: 02/06/19 Patient is a 53-year-old male with a PMH of mitral valve repair (09/2018) secondary to infective endocarditis, WINTER requiring hemodialysis, liver failure, and GI bleeding. The patient presented to the ED on 01/31 with complaints of abdominal pain with nausea and vomiting. Patient reported that some of his vomitus that appeared dark with concerns for bleeding. The patient had undergone extensive evaluation with laboratory evaluation showing a hemoglobin of 8.9, total bilirubin of 12.7, AST 645, and ALT 554. The patient had undergone abdominal ultrasound along with an MRCP which showed choledocholit hiasis along with cholecystitis and hepatosplenomegaly. The patient underwent an ERCP on 02/02 which revealed choledocholithiasis with common bile duct sludge and had sphincterotomy with balloon sweep the common bile duct with the placement of a double pigtail stent. The patient then underwent a laparoscopic cholecystectomy on 02/03. The patient's hemoglobin was down yesterday to 7.2 for which he underwent a tagged RBC scan which was unremarkable. She was seen and examined at the bedside on 02/06. He reported healing well from his surgeries and only some mild incisional pain. He denied any additional episodes of vomiting and denied noticing any blood in his stools or black tarry stools. He also denied noticing any bleeding ulcer. The patient reports that he has had anemia in the past having multiple hospitalizations requiring IV infusions of PRBCs with no clear etiology. He denied fever, chills, coughing, chest pain, or shortness of breath. Objective - Vital Signs Vital signs: Vital Signs Temp 98.4 F 02/06/19 07:00 Pulse 90 02/06/19 07:00 Resp 16 02/06/19 07:00 BP 102/52 02/06/19 07:00 Pulse Ox 96 02/06/19 07:00 Intake & Output 02/05/19 02/06/19 02/06/19 18:59 06:59 18:59 Intake Total 800 118 Output Total 25 10 Balance -25 790 118 Intake: Intake, IV Titration 800 Amount Sodium Chloride 0.9% 1, 800 000 ml @ 50 mls/hr IV . Q20H ANA Rx#:[id number] Oral 118 Output: Drainage 25 10 Abdomen 25 10 Other: Voiding Method Toilet # Voids 2 - Exam General: Non-toxic, in no acute distress, appears stated age, jaundiced, normal weight HEENT: NC/AT, anicteric sclerae, moist conjunctiva, no lid-lag, PERRLA Cardiovascular: S1/S2 wnl, no murmurs, rubs, or gallops Lungs: Clear to auscultation, normal respiratory effort, no accessory muscle use Abdominal: Soft, postsurgical, with clean dressings, MINA drain with serosanguineous drainage Skin: Warm, dry, jaundiced Extremities: No edema or contractures Psychiatric: Alert and oriented to person, place and time, appropriate affect Neuro: CN II-XII grossly intact, no focal deficits - Labs CBC & Chem 7: 02/06/19 06:39 02/06/19 06:39 Labs: Abnormal Lab Results - Last 24 Hours (Table) 02/06/19 02/06/19 Range/Units 06:39 06:39 RBC 2.06 L (4.30-5.90) m/uL Hgb 6.5 L* (13.0-17.5) gm/dL Hct 18.6 L* (39.0-53.0) % RDW 17.4 H (11.5-15.5) % Plt Count 117 L (150-450) k/uL Lymphocytes # 0.6 L (1.0-4.8) k/uL BUN 64 H (9-20) mg/dL Creatinine 4.03 H (0.66-1.25) mg/dL Total Bilirubin 4.2 H (0.2-1.3) mg/dL AST 60 H (17-59) U/L ALT 166 H (21-72) U/L Alkaline Phosphatase 353 H (38-126) U/L Total Protein 6.1 L (6.3-8.2) g/dL Albumin 3.4 L (3.5-5.0) g/dL Assessment and Plan Plan: Acute cholecystitis secondary to cholangitis status post ERCP and cholecystectomy -LFTs improving -Pain control with antiemetics -Continue low-fat diet Normocytic Anemia with thrombocytopenia of undetermined etiology, worsened to 6.5 gm/dl today -Hematology consulted -LDH wnl -Repeat echocardiogram pending -Ordered 1 unit of PRBCs -Has previously received several units of blood over the past few months -Maintained on Aranesp with ferritin normal Acute hepatitis secondary to above -Hepatitis profile negative -GI recs appreciated -Follow LFTs WINTER, hemodialysis dependent -Occurred secondary to ATN after mitral valve repair Chronic conditions: Status post mitral repair secondary to endocarditis -History of CVA with no residual deficits -Hypothyroidism DVT prophylaxis -IPCDs Discussed with: patient Anticipated discharge date: 3-[address]: Home A total of 35 minutes was spent on the care of this complex patient more than 50% of the time was spent in counseling and care coordination.
--- NOTE | 2019-02-06 11:41 | PN ---
PROGRESS NOTE DATE OF DICTATION: February 06, 2019 Patient is a 43-year-old white male admitted to hospital with abdominal pain, nausea, vomiting, elevated LFTs and jaundice. He underwent an ERCP by Dr. Acosta 3 days ago and was noted to have choledocholithiasis as well as sludge in the bile duct, underwent a sphincterotomy with CBD stent placement. Subsequently, he had gallbladder surgery by Dr. Rosas. He is doing much better. He still has some epigastric discomfort, had a couple of episodes of emesis yesterday. He has been dropping hemoglobin gradually. Yesterday was 7.2 and today is down to 6.5. He however denies any rectal bleeding or melena. PHYSICAL EXAMINATION: Appears comfortable, no apparent distress. Vital signs stable. Blood pressure 102/52, pulse rate 90, temperature 98.4. HEENT examination unremarkable. Conjunctivae pink. Sclerae anicteric. Oral cavity no lesions. Neck no JVD or lymph node enlargement. Chest was clear to auscultation. HEART: Regular rate and rhythm. ABDOMEN was soft, very minimal tenderness in the epigastric area. Rest of the abdomen was benign. Bowel sounds are positive. No organomegaly. EXTREMITIES: No pedal edema. Skin no rashes. NEUROLOGIC: Alert and oriented x3. No focal deficits. LABS: Done today: WBC 6, hemoglobin 6.6, platelets are 117. BUN 64, creatinine 4.03, T- bilirubin is down to 4.2, AST 60, ALT 166, alkaline phosphatase 53. IMPRESSION: 1. Severe anemia with gradual drop in hemoglobin. Clinically no evidence of active ongoing bleeding. Hemoglobin today 6.5 g/dL, receiving 1 unit of blood transfusion. He did have a tagged RBC scan yesterday that was negative. 2. Choledocholithiasis, status post ERCP with sphincterotomy and CBD stent placement. T-bilirubin is gradually improving. Today it is 4.2 g/dL. 3. History of infective endocarditis status post mitral valve repair at [facility] 3 months ago. 4. Acute kidney injury, being monitored closely. RECOMMENDATIONS: 1. Agree with 1 unit of PRBC transfusion. 2. Continue Protonix 40 mg twice daily. 3. Since there is no active gastrointestinal bleed. No plans for any endoscopy intervention at the present time. 4. Monitor CBC on a daily basis. 5. Repeat LFTs in the morning and will follow with you closely during his hospital stay. Thank you for this consultation. RAISSA / DAMONN: [id number] /
--- NOTE | 2019-02-06 12:02 | PN ---
PROGRESS NOTE The patient is seen for followup for acute kidney injury currently off hemodialysis for about a week. Renal function has been stable with creatinine staying at about 4.1-4.0 mg/dL. Patient has had good urine output. PHYSICAL EXAMINATION: This morning, blood pressure was 91/51, heart rate 82 per minute. Patient is afebrile. Examination of the heart S1, S2. Examination of the lungs, bilateral breath sounds are heard. Decreased breath sounds at bases. Abdomen is soft, nontender. Examination of lower extremities shows no significant edema. LABS SHOW: Hemoglobin 6.5, sodium 139, potassium 4.2, BUN 64, creatinine 4.0. ASSESSMENT: 1. Acute kidney injury, acute tubular necrosis. The patient was hemodialysis dependent. However, currently he has been off hemodialysis for about a week. Continue to maintain off dialysis. Serum creatinine is slightly lower. 2. Acute cholecystitis status post cholangitis, status post ERCP and cholecystectomy. 3. Anemia with no active bleeding noted maintained on Aranesp. 4. Gastroesophageal reflux disease. PLAN: Continue with current dose of Bumex. Repeat labs in a.m. Continue to hold off on dialysis. MMODL / IJN: [id number] /
--- NOTE | 2019-02-06 12:06 | P.PN ---
Subjective Progress Note Date: 02/06/19 Principal diagnosis: Cholecystitis Patient had episodes of nausea and vomiting this morning. Hemoglobin decreased to 6.5. Bleeding scan yesterday was normal. Liver enzymes are improved. MINA drain is mostly sanguinous Objective - Vital Signs Vital signs: Vital Signs Temp 98.4 F 02/06/19 07:00 Pulse 90 02/06/19 07:00 Resp 16 02/06/19 07:00 BP 102/52 02/06/19 07:00 Pulse Ox 96 02/06/19 07:00 Intake & Output 02/05/19 02/06/19 02/06/19 18:59 06:59 18:59 Intake Total 800 118 Output Total 25 10 Balance -25 790 118 Intake: Intake, IV Titration 800 Amount Sodium Chloride 0.9% 1, 800 000 ml @ 50 mls/hr IV . Q20H ANA Rx#:[id number] Oral 118 Output: Drainage 25 10 Abdomen 25 10 Other: Voiding Method Toilet # Voids 2 - Exam Abdomen: Soft, nondistended, mild tenderness, incisions clean and dry with small amount of ecchymosis - Labs CBC & Chem 7: 02/06/19 06:39 02/06/19 06:39 Labs: Abnormal Lab Results - Last 24 Hours (Table) 02/06/19 02/06/19 Range/Units 06:39 06:39 RBC 2.06 L (4.30-5.90) m/uL Hgb 6.5 L* (13.0-17.5) gm/dL Hct 18.6 L* (39.0-53.0) % RDW 17.4 H (11.5-15.5) % Plt Count 117 L (150-450) k/uL Lymphocytes # 0.6 L (1.0-4.8) k/uL BUN 64 H (9-20) mg/dL Creatinine 4.03 H (0.66-1.25) mg/dL Total Bilirubin 4.2 H (0.2-1.3) mg/dL AST 60 H (17-59) U/L ALT 166 H (21-72) U/L Alkaline Phosphatase 353 H (38-126) U/L Total Protein 6.1 L (6.3-8.2) g/dL Albumin 3.4 L (3.5-5.0) g/dL Assessment and Plan (1) Choledocholithiasis Narrative/Plan: Patient doing relatively well. Discussed decreasing diet with the patient however he would prefer to have regular food at this time. Will monitor symptoms of nausea. His hemoglobin has drifted down somewhat. Some of this may be related to recent difficult cholecystectomy and oozing from the liver bed. Blood has been ordered. We'll reevaluate tomorrow. Current Visit: Yes Status: Acute Code(s): K80.50 - CALCULUS OF BILE DUCT W/O CHOLANGITIS OR CHOLECYST W/O OBST SNOMED Code(s): 324271611
--- NOTE | 2019-02-06 17:29 | CONS ---
CONSULTATION DATE OF SERVICE: February 06, 2019. REASON FOR CONSULTATION: Anemia. Ahsutosh is a very pleasant 43-year-old gentleman who developed endocarditis in September of 2018, which subsequently required mitral valve repair at [facility] due to infected endocarditis complicated by LVAD placement and his course was complicated also by acute kidney failure requiring dialysis and he developed liver failure and GI bleed secondary to heparin requiring coiling surgery. The patient was admitted to the hospital at this time because of being weakness and anemic and feeling weak and anemic and his liver enzymes were significantly elevated and it was felt to be secondary to possible gallbladder and he did undergo a laparoscopic cholecystectomy on 02/03/2019. The patient has been requiring multiple blood transfusions since September of 2018. Prior to that, his hemoglobin has been almost within the normal range. There is no prior hematologic disorder that he is aware of. Currently, he feels tired. He has some pain. He has jaundice. He lost a lot of weight since he has been sick. No melena, hematochezia, hematuria, hemoptysis, hematemesis or epistaxis and no fever or chills. PAST MEDICAL HISTORY: As stated above, he had recent endocarditis, required surgery, and this has been complicated by renal failure, liver failure and also TIA, episode of GI bleed. SOCIAL HISTORY: No history of smoking, alcohol abuse or substance abuse. FAMILY HISTORY: Positive for atrial fibrillation in his father. MEDICATION: Medications and allergies are reviewed in his electronic medical record. REVIEW OF SYSTEMS: As stated above in history of present illness, otherwise negative. PHYSICAL EXAMINATION: He is alert and oriented x3. He does not appear to be in distress at this time. His temperature 98.4, pulse is 90, respirations 16, blood pressure 102/52. HEENT: Normocephalic, atraumatic. Significant scleral icterus. NECK: Supple. Chest equal expansion bilaterally. LUNGS: Clear to auscultation. Heart is regular rate and rhythm. Abdomen is slightly distended. He has tenderness in the right upper quadrant. Extremities reveal no edema. Skin a few bruises. No ecchymosis or petechiae. LABORATORY DATA: WBC of 6.0, hemoglobin 6.5, hematocrit 18.6, platelet 117. Sodium 139, potassium 4.2, chloride is 99, and CO2 is 30 and BUN is 64, creatinine 4.5, total bilirubin is 4.2, it came down since he was admitted, was 12.3, it came down from 12.3, his LFTs are elevated also, but also trending down. IMPRESSION: Anemia requiring multiple blood transfusion. This is likely related to his multiple surgeries and liver failure, kidney failure, and recent cholecystectomy. Primary hematologic problem felt to be unlikely. His CBC were almost within normal range a few months ago. I doubt the patient also has underlying hemolysis. His elevated bilirubin is most likely related to his episode of acute cholecystitis and liver injury and it appears to be trending down. His serum LDH is normal. Haptoglobin ordered and those results are pending. RECOMMENDATION: 1. No need for additional hematology workup at this time. 2. Continue to monitor CBC and supportive transfusion for now. The above was discussed with the patient and his family at bedside. Thank you very much and dictate. RAISSA / RODRI: [id number] /
[2019-02-06] MEDS: MELATONIN 3 MG TABLET PO SCH (20:57)
[2019-02-06] MEDS: FOLIC ACID-VIT B COMPLEX-VIT C 1 CAP PO SCH (20:59)
[2019-02-07] MEDS: SODIUM CHLORIDE 0.9% 1,000 ML IV SCH (02:20)
[2019-02-07 03:30] VITALS: RESP 16
[2019-02-07] MEDS: LEVOTHYROXINE 137 MCG TAB PO SCH (05:56)
[2019-02-07 07:19] LABS: Anisocytosis Slight; HCT 21.6 % (39.0-53.0); HGB 7.7 gm/dL (13.0-17.5); Hyperchromasia Slight; MCH 31.5 pg (25.0-35.0); MCHC 35.7 g/dL (31.0-37.0); MCV 88.2 fL (80.0-100.0); Mean Platelet Volume 7.1; Platelet Count 141 k/uL (150-450); Poikilocytosis Moderate; RBC 2.44 m/uL (4.30-5.90); RDW 16.9 % (11.5-15.5); WBC 11.6 k/uL (3.8-10.6)
[2019-02-07 07:29] LABS: Albumin 3.6 g/dL (3.5-5.0); Calcium 9.3 mg/dL (8.4-10.2); Potassium 3.4 mmol/L (3.5-5.1); Total Bilirubin 4.6 mg/dL (0.2-1.3); Total Protein 6.4 g/dL (6.3-8.2)
[2019-02-07] MEDS: PANTOPRAZOLE 40 MG TABLET PO SCH (08:00)
[2019-02-07] MEDS: FERROUS SULFATE 325 MG TAB PO SCH (08:00)
[2019-02-07] MEDS: SUCRALFATE 1 GM TAB PO SCH ×2 (08:00→12:22)
[2019-02-07] MEDS: MAGNESIUM OXIDE 400 MG TAB PO SCH (08:00)
[2019-02-07] MEDS: SENNOSIDES-DOCUSATE SODIUM 1 EACH TAB PO SCH (08:00)
[2019-02-07] MEDS: SEVELAMER 800 MG TAB PO SCH ×2 (08:01→12:22)
[2019-02-07] MEDS: levETIRAcetam 500 MG TAB PO SCH (08:01)
[2019-02-07] MEDS: FOLIC ACID 1 MG TAB PO SCH (08:01)
[2019-02-07] MEDS: BUMETANIDE 1 MG TAB PO SCH (08:01)
[2019-02-07] MEDS: ASPIRIN 325 MG TAB PO SCH (08:01)
[2019-02-07] MEDS ORDERED: POTASSIUM CHLORIDE ER 20 MEQ TAB.ER PO STA (08:53)
--- NOTE | 2019-02-07 11:38 | P.PN ---
Subjective Patient is seen in follow-up for acute kidney injury, currently hemodialysis dependent. Patient's last hemodialysis was on January 28. Currently resting in bed. Denies chest pain or shortness of breath. MRCP revealed choledocholithiasis. Underwent ERCP with stent placement as well as cholecystectomy this admission. No vomiting or diarrhea. He has been voiding. Renal function is a little better. Creatinine 3.71 today. Vital signs are stable. General: The patient appeared well nourished and normally developed. HEENT: Head exam is unremarkable. Neck is without jugular venous distension. LUNGS: Lungs are clear to auscultation and percussion. Breath sounds decreased. HEART: Rate and Rhythm are regular. First and second heart sounds normal. No murmurs, rubs or gallops. ABDOMEN: Abdominal exam reveals normal bowel sounds. Non-tender and non- distended. No evidence of peritonitis. EXTREMITITES: No clubbing, cyanosis, or edema. Jaundice noted. Objective - Vital Signs Vital signs: Vital Signs Temp 99.2 F 02/07/19 07:00 Pulse 94 02/07/19 07:00 Resp 16 02/07/19 07:00 BP 98/55 02/07/19 07:00 Pulse Ox 97 02/07/19 07:00 Intake & Output 02/06/19 02/07/19 02/07/19 18:59 06:59 18:59 Intake Total 830 Output Total 15 Balance 830 -15 Intake: Oral 520 Blood Product 310 Rc As-1 Unit 310 [id number] Output: Drainage 15 Abdomen 15 Other: Voiding Method Toilet Toilet # Voids 1 1 - Labs CBC & Chem 7: 02/07/19 06:55 02/07/19 06:55 Labs: Abnormal Lab Results - Last 24 Hours (Table) 02/05/19 02/06/19 02/07/19 Range/Units 07:17 11:37 06:55 WBC (3.8-10.6) k/uL RBC (4.30-5.90) m/uL Hgb (13.0-17.5) gm/dL Hct (39.0-53.0) % RDW (11.5-15.5) % Plt Count (150-450) k/uL Haptoglobin 18.4 L (31.2-198.0) mg/dL Potassium 3.4 L (3.5-5.1) mmol/L BUN 58 H (9-20) mg/dL Creatinine 3.71 H (0.66-1.25) mg/dL Glucose 100 H (74-99) mg/dL Total Bilirubin 4.6 H (0.2-1.3) mg/dL ALT 125 H (21-72) U/L Alkaline Phosphatase 302 H (38-126) U/L Crossmatch See Detail 02/07/19 Range/Units 06:55 WBC 11.6 H (3.8-10.6) k/uL RBC 2.44 L (4.30-5.90) m/uL Hgb 7.7 L (13.0-17.5) gm/dL Hct 21.6 L (39.0-53.0) % RDW 16.9 H (11.5-15.5) % Plt Count 141 L (150-450) k/uL Haptoglobin (31.2-198.0) mg/dL Potassium (3.5-5.1) mmol/L BUN (9-20) mg/dL Creatinine (0.66-1.25) mg/dL Glucose (74-99) mg/dL Total Bilirubin (0.2-1.3) mg/dL ALT (21-72) U/L Alkaline Phosphatase (38-126) U/L Crossmatch Assessment and Plan Plan: Assessment: 1. Acute kidney injury, currently hemodialysis dependent. Etiology is ATN after mitral valve repair. He is maintained on hemodialysis on Thursday schedule. Creatinine 3.71 today. Last hemodialysis January 28. 2. Coffee-ground emesis with recurrent anemia requiring blood transfusions. GI following. Maintained on Aranesp. Iron replete. 3. Choledocholithiasis. Status post ERCP on February 02 with stent placement. Status post cholecystectomy February 03. 4. Status post mitral valve repair at [facility] earlier this year. 5. Chronic kidney disease mineral bone disease maintained on PhosLo. 6. Hypercalcemia secondary to PhosLo. Better. 7. Hypokalemia secondary to diuresis. Plan: Will continue to hold off on hemodialysis and monitor renal function closely. Continue to assess on daily basis for further need for renal replacement therapy. Maintain Bumex. PhosLo discontinued. Now on Renvela. Repeat electrolytes in the morning. Replace potassium. 40 mEq today. Add maintenance potassium supplementation of 10 mEq once daily upon discharge. Check BMP and magnesium level 3-4 days postdischarge and follow up outpatient in the next 1 week.
--- NOTE | 2019-02-07 13:17 | P.PN ---
<Zoila Moses A - Last Filed: 02/07/19 12:45> Subjective Progress Note Date: 02/07/19 CHIEF COMPLAINT: Cholecystitis HISTORY OF PRESENT ILLNESS: Patient examined this morning at the bedside. S/P cholecystectomy. Abdominal pain is tolerable. Denies nausea or vomiting. Hemoglobin 7.7 today. WBC 11.6. PHYSICAL EXAM: VITAL SIGNS: Reviewed. GENERAL: Well-developed in no acute distress. Jaundice. HEENT: Sclera icterus. Extraocular movements grossly intact. Moist buccal mucosa. Head is atraumatic, normocephalic. ABDOMEN: Soft. Nondistended. Nontender. Laparoscopic surgical sites clean dry and intact. MINA drain with sanguineous drainage. No bile in MINA. NEUROLOGIC: Alert and oriented. Cranial nerves II through XII grossly intact. ASSESSMENT: 1. Epigastric pain, nausea, vomiting 2. Acute Cholecystitis 3. Hyperbilirubinemia 4. Transaminitis 5. Obstructive jaundice 6. Choledocholithiasis PLAN: Continue diet as tolerated. Continue MINA at discharge. Patient may be discharged home today on oral antibiotics. Patient to follow up with Dr. Rosas outpatient. Nurse practitioner note has been reviewed by physician. Signing provider agrees with the documented findings, assessment, and plan of care. Objective - Vital Signs Vital signs: Vital Signs Temp 99.2 F 02/07/19 07:00 Pulse 94 02/07/19 07:00 Resp 16 02/07/19 07:00 BP 98/55 02/07/19 07:00 Pulse Ox 97 02/07/19 07:00 Intake & Output 02/06/19 02/07/19 02/07/19 18:59 06:59 18:59 Intake Total 830 Output Total 15 10 Balance 830 -15 -10 Intake: Oral 520 Blood Product 310 Rc As-1 Unit 310 [id number] Output: Drainage 15 10 Abdomen 15 10 Other: Voiding Method Toilet Toilet # Voids 1 1 - Labs CBC & Chem 7: 02/07/19 06:55 02/07/19 06:55 Labs: Abnormal Lab Results - Last 24 Hours (Table) 02/05/19 02/06/19 02/07/19 Range/Units 07:17 11:37 06:55 WBC (3.8-10.6) k/uL RBC (4.30-5.90) m/uL Hgb (13.0-17.5) gm/dL Hct (39.0-53.0) % RDW (11.5-15.5) % Plt Count (150-450) k/uL Haptoglobin 18.4 L (31.2-198.0) mg/dL Potassium 3.4 L (3.5-5.1) mmol/L BUN 58 H (9-20) mg/dL Creatinine 3.71 H (0.66-1.25) mg/dL Glucose 100 H (74-99) mg/dL Total Bilirubin 4.6 H (0.2-1.3) mg/dL ALT 125 H (21-72) U/L Alkaline Phosphatase 302 H (38-126) U/L Crossmatch See Detail 02/07/19 Range/Units 06:55 WBC 11.6 H (3.8-10.6) k/uL RBC 2.44 L (4.30-5.90) m/uL Hgb 7.7 L (13.0-17.5) gm/dL Hct 21.6 L (39.0-53.0) % RDW 16.9 H (11.5-15.5) % Plt Count 141 L (150-450) k/uL Haptoglobin (31.2-198.0) mg/dL Potassium (3.5-5.1) mmol/L BUN (9-20) mg/dL Creatinine (0.66-1.25) mg/dL Glucose (74-99) mg/dL Total Bilirubin (0.2-1.3) mg/dL ALT (21-72) U/L Alkaline Phosphatase (38-126) U/L Crossmatch <Cordell Cortez - Last Filed: 02/07/19 18:11> Objective - Vital Signs Vital signs: Vital Signs Temp 98.5 F 02/07/19 15:00 Pulse 87 02/07/19 15:00 Resp 16 02/07/19 15:00 BP 91/51 02/07/19 15:00 Pulse Ox 98 02/07/19 15:00 Intake & Output 02/06/19 02/07/19 02/07/19 18:59 06:59 18:59 Intake Total 830 500 Output Total 15 10 Balance 830 -15 490 Intake: Oral 520 500 Blood Product 310 Rc As-1 Unit 310 [id number] Output: Drainage 15 10 Abdomen 15 10 Other: Voiding Method Toilet Toilet # Voids 1 1 - Labs CBC & Chem 7: 02/07/19 06:55 02/07/19 06:55 Labs: Abnormal Lab Results - Last 24 Hours (Table) 02/05/19 02/06/19 02/07/19 Range/Units 07:17 11:37 06:55 WBC (3.8-10.6) k/uL RBC (4.30-5.90) m/uL Hgb (13.0-17.5) gm/dL Hct (39.0-53.0) % RDW (11.5-15.5) % Plt Count (150-450) k/uL Haptoglobin 18.4 L (31.2-198.0) mg/dL Potassium 3.4 L (3.5-5.1) mmol/L BUN 58 H (9-20) mg/dL Creatinine 3.71 H (0.66-1.25) mg/dL Glucose 100 H (74-99) mg/dL Total Bilirubin 4.6 H (0.2-1.3) mg/dL ALT 125 H (21-72) U/L Alkaline Phosphatase 302 H (38-126) U/L Crossmatch See Detail 02/07/19 Range/Units 06:55 WBC 11.6 H (3.8-10.6) k/uL RBC 2.44 L (4.30-5.90) m/uL Hgb 7.7 L (13.0-17.5) gm/dL Hct 21.6 L (39.0-53.0) % RDW 16.9 H (11.5-15.5) % Plt Count 141 L (150-450) k/uL Haptoglobin (31.2-198.0) mg/dL Potassium (3.5-5.1) mmol/L BUN (9-20) mg/dL Creatinine (0.66-1.25) mg/dL Glucose (74-99) mg/dL Total Bilirubin (0.2-1.3) mg/dL ALT (21-72) U/L Alkaline Phosphatase (38-126) U/L Crossmatch Assessment and Plan (1) Choledocholithiasis Status: Acute Code(s): K80.50 - CALCULUS OF BILE DUCT W/O CHOLANGITIS OR CHOLECYST W/O OBST SNOMED Code(s): 463112866
[2019-02-07 16:15] VITALS: BP 91/51; PULSE 87; TEMP 98.5
--- NOTE | 2019-02-07 16:19 | P.DS ---
Providers Date of admission: 01/31/19 13:35 Expected date of discharge: 02/07/19 Attending physician: Modesta Candelaria DO Consults: 01/31/19 13:34 Consult Physician Stat Consulting Provider: Man Acosta Consult Reason/Comments: Liver failure, upper GI bleed Do you want consulting provider notified?: Yes 01/31/19 13:35 Consult Physician Urgent Consulting Provider: Carlos Aldridge Consult Reason/Comments: Dialysis Do you want consulting provider notified?: Yes 02/01/19 09:26 Consult Physician Stat Consulting Provider: Gary Orr Consult Reason/Comments: cholecystitis Do you want consulting provider notified?: Yes 02/05/19 08:15 Consult Physician Routine Consulting Provider: Natalio Garland Consult Reason/Comments: REcurrent transfusions no signs of bleeding Do you want consulting provider notified?: Yes Primary care physician: Kelly Manzo MD Hospital Course: Patient is a 53-year-old male with a PMH of mitral valve repair (09/2018) secondary to infective endocarditis, WINTER requiring hemodialysis, liver failure, and GI bleeding. The patient presented to the ED on 01/31 with complaints of abdominal pain with nausea and vomiting. Patient reported that some of his vomitus that appeared dark with concerns for bleeding. The patient had undergone extensive evaluation with laboratory evaluation showing a hemoglobin of 8.9, total bilirubin of 12.7, AST 645, and ALT 554. The patient had undergone abdominal ultrasound along with an MRCP which showed choledocholithiasis along with cholecystitis and hepatosplenomegaly. The patient underwent an ERCP on 02/02 which revealed choledocholithiasis with common bile duct sludge and had sphincterotomy with balloon sweep the common bile duct with the placement of a double pigtail stent. The patient then und erwent a laparoscopic cholecystectomy on 02/03. The patient's hemoglobin was down yesterday to 7.2 for which he underwent a tagged RBC scan which was unremarkable. Patient was also noted to have hemoglobin dropped to 6.5 and received 1 unit packed red cells post-transfusion hemoglobin came up to 7.7 g/dL. Objective: Patient vital signs stable he's afebrile, his blood pressure runs around 100 systolic without symptoms pulse ox is 97% on room air. Patient lungs clear, heart rate regular, MINA drainage right hypogastric area draining serosanguineous bloody stained fluid. Bowel sounds positive no guarding rigidity rebound detected. Assessment and Plan Acute cholecystitis secondary to cholangitis status post ERCP and cholecystectomy -LFTs improving -Oral Augmentin per surgery recs. -Continue low-fat diet Normocytic Anemia with thrombocytopenia of undetermined etiology, worsened to 6.5 gm/dl s/p transfusion, today 7.7gm/dl. -Has previously received several units of blood over the past few months -Maintained on Aranesp with ferritin normal, as per Nephrology Dr. Aldridge. Acute hepatitis secondary to above -Hepatitis profile negative -Improving LFTs since ERCP and Mariela. WINTER, hemodialysis dependent -Occurred secondary to ATN after mitral valve repair, no HD for about 10 days an dhis renal function are slowly improving. Per Dr. Aldridge labs on this Thursday and will f/u in 1week. Possible he may be taken off from HD. Chronic conditions: Status post mitral repair secondary to endocarditis -History of CVA with no residual deficits -Hypothyroidism Assessment: see above. Patient Condition at Discharge: Fair Plan - Discharge Summary Discharge Rx Participant: No New Discharge Prescriptions: New Amoxic-Pot Clav 500-125 mg [Augmentin 500-125 mg] 1 tab PO Q12HR #10 tab Potassium Chloride ER [K-Dur 10] 10 meq PO DAILY 30 Days #30 tab.er.prt Pantoprazole [Protonix] 40 mg PO DAILY 30 Days #30 tablet.dr Lucero [Renvela] 800 mg PO TID-W/MEALS 30 Days #90 tab Continue Magnesium Oxide [Mag-Ox] 800 mg PO BID Levothyroxine Sodium [Synthroid] 137 mcg PO DAILY levETIRAcetam 500 mg PO BID Folic Acid 1 mg PO DAILY Ferrous Sulfate [Iron (65 MG Elemental)] 325 mg PO DAILY Darbepoetin Thompson [Aranesp] 25 mcg SQ Q7D PRN PRN Reason: DIALYSIS DAYS Sucralfate [Carafate] 1 gram PO QID B Complex & C No.20/Folic Acid [Nephrocaps Softgel] 1 mg PO HS Calcium Acetate [PhosLo] 667 mg PO TID Sennosides-Docusate Sodium [Senokot-S] 1 tab PO BID Omeprazole 20 mg PO QAM Melatonin 9 mg PO HS Aspirin EC [Ecotrin] 325 mg PO DAILY Bumetanide [BUMEX] 2 mg PO QID Discharge Medication List B Complex & C No.20/Folic Acid [Nephrocaps Softgel] 1 mg PO HS 12/30/18 [History] Darbepoetin Thompson [Aranesp] 25 mcg SQ Q7D PRN 12/30/18 [History] Ferrous Sulfate [Iron (65 MG Elemental)] 325 mg PO DAILY 12/30/18 [History] Folic Acid 1 mg PO DAILY 12/30/18 [History] Levothyroxine Sodium [Synthroid] 137 mcg PO DAILY 12/30/18 [History] Magnesium Oxide [Mag-Ox] 800 mg PO BID 12/30/18 [History] Sucralfate [Carafate] 1 gram PO QID 12/30/18 [History] levETIRAcetam 500 mg PO BID 12/30/18 [History] Aspirin EC [Ecotrin] 325 mg PO DAILY 01/29/19 [History] Calcium Acetate [PhosLo] 667 mg PO TID 01/29/19 [History] Melatonin 9 mg PO HS 01/29/19 [History] Omeprazole 20 mg PO QAM 01/29/19 [History] Sennosides-Docusate Sodium [Senokot-S] 1 tab PO BID 01/29/19 [History] Bumetanide [BUMEX] 2 mg PO QID 01/31/19 [History] Amoxic-Pot Clav 500-125 mg [Augmentin 500-125 mg] 1 tab PO Q12HR #10 tab 02/07/19 [Rx] Pantoprazole [Protonix] 40 mg PO DAILY 30 Days #30 tablet.dr 02/07/19 [Rx] Potassium Chloride ER [K-Dur 10] 10 meq PO DAILY 30 Days #30 tab.er.prt 02/07/19 [Rx] Sevelamer [Renvela] 800 mg PO TID-W/MEALS 30 Days #90 tab 02/07/19 [Rx] Follow up Appointment(s)/Referral(s): Kelly Manzo MD [Primary Care Provider] - 1-2 days Carlos Aldridge DO [STAFF PHYSICIAN] - 1 Week Man Acosta MD [STAFF PHYSICIAN] - 02/28/19 2:00 pm Gary Orr MD [STAFF PHYSICIAN] - 1 Week Activity/Diet/Wound Care/Special Instructions: Tylenol as needed for pain Continue MINA drain Keep a log of MINA drain output-bring with you to your appointment with Dr. orr Diet as tolerated Discharge Disposition: HOME SELF-CARE
--- NOTE | 2019-02-07 18:16 | PN ---
PROGRESS NOTE DATE OF DISCHARGE: 02/07/2019 The patient is a 43-year-old pleasant white male admitted to the hospital with abdominal pain, nausea, vomiting and jaundice. He was noted to have elevated LFTs and bilirubin up to 14.4. He had ERCP with biliary sphincterotomy and balloon stone extraction with a CBD stent placement by Dr. Acosta 5 days ago. Serum transaminases are gradually improving and bilirubin also has significantly improved. In the meantime, he developed anemia requiring one unit of blood transfusion but no active bleeding. Hemoglobin today is 7.5 g/dL. The patient denies any abdominal pain. He still has some nausea but no emesis. Overall doing much better. No fever, chills, night sweats. PHYSICAL EXAMINATION: Appears comfortable. No apparent distress. VITAL SIGNS: Stable. Blood pressure 91/51, pulse rate 87, temperature 98.5. HEENT examination unremarkable. Conjunctivae pink. Sclerae slightly icteric. Oral cavity no lesions. NECK: No JVD or lymph node enlargement. CHEST: Clear to auscultation. HEART: Regular rate and rhythm. ABDOMEN: Soft. There was very minimal tenderness at the site of cholecystectomy. MINA drain in place with some serosanguineous fluid noted. EXTREMITIES: No pedal edema. SKIN: No rashes. NEUROLOGIC: Alert and oriented x3. No focal deficits. LABS: WBC 11.6, hemoglobin 7.7, platelets 141. T-bilirubin is 4.6, AST 35, ALT 127, alkaline phosphatase 302. IMPRESSION: 1. Choledocholithiasis, status post endoscopic retrograde cholangiopancreatography with common bile duct stone extraction and stent placement 5 days ago. Serum transaminases are gradually improving. 2. Severe symptomatic anemia, status post one unit of blood transfusion yesterday with a hemoglobin of 6.5. Today it is 7.7. 3. History of infective endocarditis, status post mitral valve repair 3 months ago at [facility]. 4. Chronic kidney disease. RECOMMENDATIONS: 1. Advance diet as tolerated. 2. He can be discharged home today. 3. He can follow up with Dr. Acosta 2 weeks from now. Thank you for this consultation. MMODL / IJN: [id number] /
[2019-02-08] MEDS ORDERED: POTASSIUM CHLORIDE ER 10 MEQ TAB.ER.PRT PO SCH (09:00)
== END 2019-02-07 17:19 | disposition home or self-care (01) | DRG 417 ==
LOC: EC 10:55 → 4SSUR 13:35
PROVIDERS: ADMIT Internal Medicine; ATTEND Internal Medicine
PROC: 0FC98ZZ Extirpation of Matter from Common Bile Duct, Via Natural or Artificial Opening Endoscopic (ICD-10-PCS; 2019-02-02 09:15)
PROC: 0F798DZ Dilation of Common Bile Duct with Intraluminal Device, Via Natural or Artificial Opening Endoscopic (ICD-10-PCS; 2019-02-02 09:15)
PROC: 0FT44ZZ Resection of Gallbladder, Percutaneous Endoscopic Approach (ICD-10-PCS; principal; 2019-02-03 07:30)
PROC: 30233N1 Transfusion of Nonautologous Red Blood Cells into Peripheral Vein, Percutaneous Approach (ICD-10-PCS; 2019-02-06)
DX: K80.63 Calculus of gallbladder and bile duct with acute cholecystitis with obstruction (principal); N18.6 End stage renal disease; K72.00 Acute and subacute hepatic failure without coma; N17.0 Acute kidney failure with tubular necrosis; D63.8 Anemia in other chronic diseases classified elsewhere; D69.6 Thrombocytopenia, unspecified; E03.9 Hypothyroidism, unspecified; E83.52 Hypercalcemia; E87.6 Hypokalemia; K21.9 Gastro-esophageal reflux disease without esophagitis; N25.0 Renal osteodystrophy; T50.2X5A Adverse effect of carbonic-anhydrase inhibitors, benzothiadiazides and other diuretics, initial encounter; Z79.82 Long term (current) use of aspirin; Z79.890 Hormone replacement therapy; Z79.899 Other long term (current) drug therapy; Z86.73 Personal history of transient ischemic attack (TIA), and cerebral infarction without residual deficits; Z86.79 Personal history of other diseases of the circulatory system; Z95.2 Presence of prosthetic heart valve; Z99.2 Dependence on renal dialysis
CPT/HCPCS: 36415; 43262; 43264; 43274; 74181; 74328; 76705; 78278; 80048; 80053; 80074; 80076; 82248; 82728; 83010; 83540; 83550; 83605; 83615; 83690; 83735; 84100; 84484; 85025; 85027; 85610; 85730; 86704; 86706; 86850; 86870; 86880; 86900; 86901; 86920; 87340; 88304; 93005; 93306; 96374; 96375; 96376; 99285

== ENCOUNTER → 2019-02-11 | Outpatient (CLI) | payer BC ==
[2019-02-11 12:04] LABS: Anisocytosis Slight; HCT 27.4 % (39.0-53.0); Hyperchromasia Slight; MCH 30.4 pg (25.0-35.0); MCV 86.7 fL (80.0-100.0); Poikilocytosis Moderate; RBC 3.16 m/uL (4.30-5.90); RDW 16.1 % (11.5-15.5); WBC 14.2 k/uL (3.8-10.6)
[2019-02-11 12:18] LABS: HGB 9.6 gm/dL (13.0-17.5); Platelet Count 317 k/uL (150-450)
[2019-02-11 18:04] LABS: African American GFR (CKD) 23.9 (60.0-200.0); Anion Gap 16.6 mmol/L (4.00-12.00); Calcium 9.9 mg/dL (8.7-10.3); Carbon Dioxide 33.4 mmol/L (21.6-31.8); Magnesium 2.7 mg/dL (1.5-2.4); Potassium 3.6 mmol/L (3.5-5.5)
== END | disposition home or self-care (01) ==
LOC: LABWHC1 10:41
PROVIDERS: ATTEND Internal Medicine
DX: K80.63 Calculus of gallbladder and bile duct with acute cholecystitis with obstruction (principal)
CPT/HCPCS: 36415; 80048; 83735; 85027

== ENCOUNTER 2019-02-25 01:26 | Emergency (ER) | payer BC ==
[2019-02-25 01:33] VITALS: BP 115/60; PULSE 100; RESP 18; TEMP 97.5
--- NOTE | 2019-02-25 01:47 | ED ---
General Adult HPI - General Chief complaint: Recheck/Abnormal Lab/Rx Stated complaint: Port Removal Injury Time Seen by Provider: 02/25/19 01:34 Source: patient Mode of arrival: ambulatory Limitations: no limitations - History of Present Illness Initial comments: Jake is a 43-year-old gentleman with extensive past medical history most significant for recent kidney failure requiring dialysis. 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 Earlier in the day patient had his temporary dialysis port removed. The dressing is remaining in place since the port was removed. Patient reports he was getting ready for bed when he noted blood coming to the dressing which prompted him to come the ER for evaluation. - Related Data Home Medications Medication Instructions Recorded Confirmed B Complex & C No.20/Folic Acid 1 mg PO HS 12/30/18 01/31/19 [Nephrocaps Softgel] Darbepoetin Thompson [Aranesp] 25 mcg SQ Q7D PRN 12/30/18 01/31/19 Ferrous Sulfate [Iron (65 MG 325 mg PO DAILY 12/30/18 01/31/19 Elemental)] Folic Acid 1 mg PO DAILY 12/30/18 01/31/19 Levothyroxine Sodium [Synthroid] 137 mcg PO DAILY 12/30/18 01/31/19 Magnesium Oxide [Mag-Ox] 800 mg PO BID 12/30/18 01/31/19 Sucralfate [Carafate] 1 gram PO QID 12/30/18 01/31/19 levETIRAcetam 500 mg PO BID 12/30/18 01/31/19 Aspirin EC [Ecotrin] 325 mg PO DAILY 01/29/19 01/31/19 Calcium Acetate [PhosLo] 667 mg PO TID 01/29/19 01/31/19 Melatonin 9 mg PO HS 01/29/19 01/31/19 Omeprazole 20 mg PO QAM 01/29/19 01/31/19 Sennosides-Docusate Sodium 1 tab PO BID 01/29/19 01/31/19 [Senokot-S] Bumetanide [BUMEX] 2 mg PO QID 01/31/19 01/31/19 Previous Rx's Medication Instructions Recorded Amoxic-Pot Clav 500-125 mg 1 tab PO Q12HR #10 tab 02/07/19 [Augmentin 500-125 mg] Pantoprazole [Protonix] 40 mg PO DAILY 30 Days #30 02/07/19 tablet. Potassium Chloride ER [K-Dur 10] 10 meq PO DAILY 30 Days #30 02/07/19 tab.er.prt Sevelamer [Renvela] 800 mg PO TID-W/MEALS 30 Days #90 02/07/19 tab Allergies Allergy/AdvReac Type Severity Reaction Status Date / Time No Known Allergies Allergy Verified 02/25/19 01:33 Review of Systems ROS Statement: Those systems with pertinent positive or pertinent negative responses have been documented in the HPI. ROS Other: All systems not noted in ROS Statement are negative. 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, and pt had mitral valve repair and then had renal and liver insufficiency after surgery; [facility] History of Any Multi-Drug Resistant Organisms: None Reported Past Surgical History: Cholecystectomy Additional Past Surgical History / Comment(s): Mitral valve repair July 2018; artery repair during mitral valve repair, Past Anesthesia/Blood Transfusion Reactions: No Reported Reaction Past Psychological History: No Psychological Hx Reported Smoking Status: Never smoker Past Alcohol Use History: None Reported Past Drug Use History: None Reported - Past Family History Father Family Medical History: AFIB General Exam - General Exam Comments Initial Comments: Physical Exam GENERAL: Chronically ill appearing gentleman in no acute distress HENT: Normocephalic, Atraumatic. EYES: PERRL, EOMI PULMONARY: Unlabored respirations. CARDIOVASCULAR: RRR Warm and well perfused extremities Well healed sternotomy scar ABDOMEN: Non-distended Multiple well-healed surgical incisions SKIN: Approximately 2 cm incision and left upper chest consistent with port removal. Mild dark venous oozing from the incision. : Deferred NEUROLOGIC: Alert and oriented Normal speech Normal gait MUSCULOSKELETAL: Moving all extremities with no apparent injury PSYCHIATRIC: No SI/HI Limitations: no limitations Course Vital Signs 02/25/19 01:30 Temperature 97.5 F L Pulse Rate 100 Respiratory 18 Rate Blood Pressure 115/60 O2 Sat by Pulse 100 Oximetry Medical Decision Making - Medical Decision Making She was seen and evaluated history is obtained from patient, this is a chronically ill 43-year-old gentleman who had his temperature dialysis port phani kenji from the left chest earlier today. Remove the dressing which was in place and estimated there was maybe 10 mL of blood loss on the dressing. Patient has some venous oozing from the incision site. Direct pressure was applied however there continue to be a small amount of oozing therefore decision was made to place a small amount of excess and over the laceration. Hemostasis was obtained with this. I advised the patient that he can bathe as usual with the exception will peel off in time and if it is not peeled off by the time he is to have his sutures out a can be removed with a petroleum-based ointment such as Vaseline or Neosporin. All questions pertaining care were answered return parameters were discussed patient was discharged home in stable condition. Disposition Clinical Impression: Post-op bleeding Disposition: HOME SELF-CARE Condition: Stable Additional Instructions: Follow-up with Dr. Segal as planned Is patient prescribed a controlled substance at d/c from ED?: No Referrals: Kelly Manzo MD [Primary Care Provider] - 1-2 days
[2019-02-25] MEDS ORDERED: LIDOCAINE 1%-EPI 1:100,000 20 ML VIAL SQ STA (02:08)
[2019-02-25] MEDS ORDERED: TOPICAL SKIN ADHESIVE 1 EACH AMP TOPICAL ONE ×2 (02:43→02:58)
== END 2019-02-25 03:02 | disposition home or self-care (01) ==
LOC: EC 01:26
DX: L76.22 Postprocedural hemorrhage of skin and subcutaneous tissue following other procedure (principal); N18.9 Chronic kidney disease, unspecified; Z79.82 Long term (current) use of aspirin; Z79.890 Hormone replacement therapy; Z79.899 Other long term (current) drug therapy; Z86.73 Personal history of transient ischemic attack (TIA), and cerebral infarction without residual deficits; Z86.2 Personal history of diseases of the blood and blood-forming organs and certain disorders involving the immune mechanism; Z86.79 Personal history of other diseases of the circulatory system; Z98.890 Other specified postprocedural states; Z99.2 Dependence on renal dialysis; Z53.8 Procedure and treatment not carried out for other reasons
CPT/HCPCS: 12001; 99283

== ENCOUNTER → 2019-03-09 | Outpatient (CLI) | payer BC ==
[2019-03-09 10:19] LABS: Appearance,Urine Clear (Clear); Bilirubin,Urine Negative (Negative); Blood,Urine Negative (Negative); Color,Urine Yellow; Glucose,Urine (UA) Negative (Negative); Ketones,Urine Negative (Negative); Leukocyte Esterase,Urine Negative (Negative); Nitrite,Urine Negative (Negative); Protein,Urine Trace (Negative); Specific Gravity,Urine 1.011 (1.001-1.035); Urobilinogen,Urine <2.0 mg/dL (<2.0)
[2019-03-09 10:20] LABS: Anisocytosis Slight; HCT 23.5 % (39.0-53.0); HGB 8.6 gm/dL (13.0-17.5); Hyperchromasia Moderate; MCH 31.8 pg (25.0-35.0); MCHC 36.4 g/dL (31.0-37.0); MCV 87.4 fL (80.0-100.0); Mean Platelet Volume 6.2; Platelet Count 140 k/uL (150-450); Poikilocytosis Marked; RBC 2.69 m/uL (4.30-5.90); RDW 16.4 % (11.5-15.5); WBC 8.2 k/uL (3.8-10.6)
[2019-03-09 16:45] LABS: % Iron Saturation 31.84 (15.00-50.00); African American GFR (CKD) 26.7 (60.0-200.0); Albumin 4.4 g/dL (3.80-4.90); Albumin/Globulin Ratio 2.32 (1.60-3.17); Anion Gap 11.4 mmol/L (4.00-12.00); BUN/Creat Ratio 19.68 Ratio (12.00-20.00); Calcium 9.7 mg/dL (8.7-10.3); Carbon Dioxide 26.6 mmol/L (21.6-31.8); Globulin 1.9 g/dL (1.6-3.3); Magnesium 2.7 mg/dL (1.5-2.4); Phosphorus 5.1 mg/dL (2.4-5.1); Potassium 4.2 mmol/L (3.5-5.5); Total Bilirubin 2.1 mg/dL (0.3-1.2); Total Protein 6.3 g/dL (6.2-8.2); Uric Acid 7.6 mg/dL (3.7-8.7)
[2019-03-09 17:21] LABS: Ferritin 2346.8 ng/mL (22.0-322.0)
== END | disposition home or self-care (01) ==
LOC: LABWHC1 09:22
PROVIDERS: ATTEND Internal Medicine
DX: N17.9 Acute kidney failure, unspecified (principal); D64.9 Anemia, unspecified; M10.9 Gout, unspecified; E55.9 Vitamin D deficiency, unspecified
CPT/HCPCS: 36415; 80053; 81003; 82306; 82728; 83540; 83550; 83735; 83970; 84100; 84550; 85027

== ENCOUNTER 2019-05-24 22:32 | Emergency (ER) | payer BC ==
[2019-05-24 22:42] VITALS: BP 118/54; PULSE 106; RESP 18; TEMP 98.6
--- NOTE | 2019-05-24 23:12 | XR ---
EXAMINATION TYPE: XR knee complete RT DATE OF EXAM: 05/24/2019 COMPARISON: NONE HISTORY: Knee pain TECHNIQUE: 3 views FINDINGS: I see no fracture nor dislocation. Joint spaces are normal. There is knee joint effusion. IMPRESSION: Small joint effusion. No fracture seen.
--- NOTE | 2019-05-24 23:44 | ED ---
Extremity Problem HPI - General Chief complaint: Extremity Problem,Nontraumatic Stated complaint: Rt Knee Swelling Time Seen by Provider: 05/24/19 23:11 Source: patient Mode of arrival: ambulatory Limitations: no limitations - History of Present Illness Initial comments: Patient is a 43-year-old male presenting with right knee pain and swelling for 2 days. Patient states he recently went back to work after being off for 7-8 months. Patient states he does stand and walk a lot during work. Patient denies any falls or trauma to his knee. He denies any recent fever, chills, vomiting. He denies history of blood clots, no recent travel. He has no other complaints at this time. He denies previous history of right knee injuries or surgeries. He denies drug use. Vital signs are stable upon arrival. - Related Data Home Medications Medication Instructions Recorded Confirmed B Complex & C No.20/Folic Acid 1 mg PO HS 12/30/18 05/23/19 [Nephrocaps Softgel] Darbepoetin Thompson [Aranesp] 25 mcg SQ Q7D PRN 12/30/18 05/23/19 Ferrous Sulfate [Iron (65 MG 325 mg PO DAILY 12/30/18 05/23/19 Elemental)] Folic Acid 1 mg PO DAILY 12/30/18 05/23/19 Levothyroxine Sodium [Synthroid] 137 mcg PO DAILY 12/30/18 05/23/19 Magnesium Oxide [Mag-Ox] 800 mg PO BID 12/30/18 05/23/19 Sucralfate [Carafate] 1 gram PO QID 12/30/18 05/23/19 levETIRAcetam 500 mg PO BID 12/30/18 05/23/19 Aspirin EC [Ecotrin] 325 mg PO DAILY 01/29/19 05/23/19 Calcium Acetate [PhosLo] 667 mg PO TID 01/29/19 05/23/19 Melatonin 9 mg PO HS 01/29/19 05/23/19 Sennosides-Docusate Sodium 1 tab PO BID 01/29/19 05/23/19 [Senokot-S] Bumetanide [BUMEX] 2 mg PO QID 01/31/19 05/23/19 Carvedilol [Coreg] 1 tab PO BID 04/11/19 05/23/19 Previous Rx's Medication Instructions Recorded Amoxic-Pot Clav 500-125 mg 1 tab PO Q12HR #10 tab 02/07/19 [Augmentin 500-125 mg] Pantoprazole [Protonix] 40 mg PO DAILY 30 Days #30 02/07/19 tablet. Potassium Chloride ER [K-Dur 10] 10 meq PO DAILY 30 Days #30 02/07/19 tab.er.prt Sevelamer [Renvela] 800 mg PO TID-W/MEALS 30 Days #90 02/07/19 tab Allergies Allergy/AdvReac Type Severity Reaction Status Date / Time No Known Allergies Allergy Verified 05/24/19 22:42 Review of Systems ROS Statement: Those systems with pertinent positive or pertinent negative responses have been documented in the HPI. ROS Other: All systems not noted in ROS Statement are negative. 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, and pt had mitral valve repair and then had renal and liver insufficiency after surgery; [facility] History of Any Multi-Drug Resistant Organisms: None Reported Past Surgical History: Cholecystectomy Additional Past Surgical History / Comment(s): Mitral valve repair July 2018; artery repair during mitral valve repair, Past Anesthesia/Blood Transfusion Reactions: No Reported Reaction Past Psychological History: No Psychological Hx Reported Smoking Status: Never smoker Past Alcohol Use History: None Reported Past Drug Use History: None Reported - Past Family History Father Family Medical History: AFIB General Exam - General Exam Comments Initial Comments: GENERAL: Well-appearing, well-nourished and in no acute distress. HEAD: Atraumatic, normocephalic. EYES: Pupils equal round and reactive to light, extraocular movements intact, sclera anicteric, conjunctiva are normal. ENT: Nares patent, oropharynx clear without exudates. Moist mucous membranes. NECK: Normal range of motion, supple without lymphadenopathy or JVD. LUNGS: Breath sounds clear to auscultation bilaterally and equal. No wheezes rales or rhonchi. HEART: Regular rate and rhythm without murmurs, rubs or gallops. ABDOMEN: Soft, nontender, normoactive bowel sounds. No guarding, no rebound. No masses appreciated. EXTREMITIES: Patient has pain with palpation of the anterior right knee, there is moderate swelling along the medial aspect of the knee. He has decreased knee flexion secondary to pain and swelling. He has full extension. There is no surrounding erythema or warmth to the knee. Neurovascular intact. Negative anterior drawer, negative valgus and varus. Positive Meghan's. PSYCH: Normal mood, normal affect. SKIN: Warm, Dry, normal turgor, no rashes or lesions noted. Limitations: no limitations Course Vital Signs 05/24/19 22:38 Temperature 98.6 F Pulse Rate 106 H Respiratory 18 Rate Blood Pressure 118/54 O2 Sat by Pulse 99 Oximetry Medical Decision Making - Medical Decision Making Patient is a 43-year-old male presenting with right knee pain and swelling 2 days. He denies any falls to the knee but has been back to work and standing and twisting a lot. She denies any previous surgeries or injuries to any. X- rays of the right knee show no acute fractures dislocations, small joint effusion. On exam patient has decreased knee flexion secondary to swelling and pain. There is no erythema or warmth to the knee. This does not appear infectious. He has no risk factors for blood clots, no history recent travel. I discussed with patient this is most likely related to internal derangement. Patient will use compression wraps as well as ice and elevation to the knee. He may take Tylenol for pain. He will follow up with orthopedics. He is in agreement with this plan of care. Return parameters were discussed with the patient he verbalizes understanding. Case discussed with Dr. Gonzales. Disposition Clinical Impression: Right knee pain, Swelling of right knee joint Disposition: HOME SELF-CARE Condition: Stable Instructions (If sedation given, give patient instructions): Swollen Knee Joint (ED) Additional Instructions: Please return to the Emergency Department if symptoms worsen or any other concerns. Use ice, compression, elevation for swelling and pain control. May try Tylenol. Follow-up with orthopedics as discussed. Is patient prescribed a controlled substance at d/c from ED?: No Referrals: Kelly Manzo MD [Primary Care Provider] - 1-2 days Norm Brunner MD [STAFF PHYSICIAN] - 1-2 days
[2019-05-24] MEDS ORDERED: ACET/COD 300 MG/30 MG STARTER PACK 6 TAB BTL PO STA (23:48)
== END 2019-05-24 23:59 | disposition home or self-care (01) ==
LOC: EC 22:32
DX: M25.461 Effusion, right knee (principal); Z79.890 Hormone replacement therapy; Z79.82 Long term (current) use of aspirin; Z79.02 Long term (current) use of antithrombotics/antiplatelets; Z79.899 Other long term (current) drug therapy; Z86.73 Personal history of transient ischemic attack (TIA), and cerebral infarction without residual deficits
CPT/HCPCS: 99283

== ENCOUNTER → 2020-04-30 | Outpatient (CLI) | payer BC ==
[2020-04-30 15:12] LABS: Anisocytosis Slight; Basophils % (A) 0 %; Eosinophils % (A) 2 %; HCT 24.2 % (39.0-53.0); HGB 8.8 gm/dL (13.0-17.5); Hyperchromasia Marked; Lymphocytes # (A) 0.3 k/uL (1.0-4.8); Lymphocytes % (A) 13 %; MCH 34.1 pg (25.0-35.0); MCHC 36.3 g/dL (31.0-37.0); MCV 93.9 fL (80.0-100.0); Mean Platelet Volume 9.2; Monocytes # (A) 0.2 k/uL (0-1.0); Monocytes % (A) 7 %; Neutrophils # (A) 1.9 k/uL (1.3-7.7); Neutrophils % (A) 75 %; Platelet Count 126 k/uL (150-450); Poikilocytosis Moderate; RBC 2.57 m/uL (4.30-5.90); RDW 17.3 % (11.5-15.5); WBC 2.6 k/uL (3.8-10.6)
[2020-05-01 00:54] LABS: % Iron Saturation 13.36 (15.00-50.00)
[2020-05-01 01:23] LABS: Ferritin 1905.2 ng/mL (22.0-322.0)
== END | disposition home or self-care (01) ==
LOC: LABWHC1 13:46
PROVIDERS: ATTEND Nurse Practitioner Adult Health
DX: N18.9 Chronic kidney disease, unspecified (principal)
CPT/HCPCS: 36415; 82728; 83540; 83550; 85025

== ENCOUNTER → 2020-08-01 | Outpatient (CLI) | payer BC ==
[2020-08-01 17:41] LABS: Appearance,Urine Clear (Clear); Bilirubin,Urine Negative (Negative); Blood,Urine Negative (Negative); Color,Urine Light Yellow; Glucose,Urine (UA) Negative (Negative); Ketones,Urine Negative (Negative); Leukocyte Esterase,Urine Negative (Negative); Nitrite,Urine Negative (Negative); Protein,Urine Negative (Negative); Specific Gravity,Urine 1.006 (1.001-1.035); Urobilinogen,Urine <2.0 mg/dL (<2.0)
[2020-08-01 18:03] LABS: Creatinine,Urine Random 43.9 mg/dL; Protein/Creatinine Ratio,Urine 0.251
[2020-08-01 23:09] LABS: Basophils # (A) 0.03 X 10*3/uL (0.00-0.10); Basophils % (A) 0.3 %; Eosinophils # (A) 0.37 X 10*3/uL (0.04-0.35); Eosinophils % (A) 4.2 %; HCT 35.3 % (39.6-50.0); HGB 12.5 g/dL (13.0-17.0); Lymphocytes # (A) 1.16 X 10*3/uL (0.90-5.00); Lymphocytes % (A) 13.2 %; MCH 33.6 pg (27.0-32.0); MCHC 35.4 g/dL (32.0-37.0); MCV 94.9 fL (80.0-97.0); Mean Platelet Volume 11.7 fL (9.5-12.2); Monocytes # (A) 0.57 X 10*3/uL (0.20-1.00); Monocytes % (A) 6.5 %; Neutrophils % (A) 74.9 %; Platelet Count 144 X 10*3/uL (140-440); RBC 3.72 X 10*6/uL (4.40-5.60); RDW 16.3 % (11.5-14.5); WBC 8.81 X 10*3/uL (4.50-10.00)
[2020-08-02 19:12] LABS: % Iron Saturation 33.33 (15.00-50.00); African American GFR (CKD) 51.2 (60.0-200.0); BUN/Creat Ratio 17.22 Ratio (12.00-20.00); Calcium 9.8 mg/dL (8.7-10.3); Ferritin 1340.9 ng/mL (22.0-322.0); Magnesium 2.2 mg/dL (1.5-2.4); Non-African American GFR(CKD) 44.2 (60.0-200.0); Phosphorus 4.1 mg/dL (2.4-5.1); Potassium 4.4 mmol/L (3.5-5.5); Uric Acid 6.6 mg/dL (3.7-8.7)
== END | disposition home or self-care (01) ==
LOC: LABWHC1 15:39
PROVIDERS: ATTEND Nurse Practitioner Adult Health
DX: N18.30 Chronic kidney disease, stage 3 unspecified (principal); D64.9 Anemia, unspecified; E55.9 Vitamin D deficiency, unspecified; N25.81 Secondary hyperparathyroidism of renal origin; M10.9 Gout, unspecified; N39.0 Urinary tract infection, site not specified; R80.9 Proteinuria, unspecified
CPT/HCPCS: 36415; 80048; 81003; 82040; 82306; 82570; 82728; 83540; 83550; 83735; 83970; 84100; 84156; 84550; 85025

== ENCOUNTER → 2020-09-27 | Outpatient (CLI) | payer BC ==
[2020-09-27 23:05] LABS: Basophils # (A) 0.02 X 10*3/uL (0.00-0.10); Basophils % (A) 0.3 %; Eosinophils % (A) 2.8 %; HCT 33.9 % (39.6-50.0); HGB 12.6 g/dL (13.0-17.0); Lymphocytes # (A) 1.05 X 10*3/uL (0.90-5.00); Lymphocytes % (A) 14.4 %; MCH 34.3 pg (27.0-32.0); MCHC 37.2 g/dL (32.0-37.0); MCV 92.4 fL (80.0-97.0); Mean Platelet Volume 11.9 fL (9.5-12.2); Monocytes % (A) 6.9 %; Neutrophils # (A) 5.45 X 10*3/uL (1.80-7.70); Neutrophils % (A) 74.9 %; Platelet Count 134 X 10*3/uL (140-440); RBC 3.67 X 10*6/uL (4.40-5.60); WBC 7.27 X 10*3/uL (4.50-10.00)
[2020-09-28 08:34] LABS: % Iron Saturation 27.01 (15.00-50.00); Ferritin 1489.9 ng/mL (22.0-322.0); Folate, Serum >24.0 ng/mL; Iron 74 ug/dL (65-175); Total Iron Binding Capacity 274 ug/dL (228-460)
== END | disposition home or self-care (01) ==
LOC: LABWHC1 14:41
PROVIDERS: ATTEND Nurse Practitioner Adult Health
DX: N18.9 Chronic kidney disease, unspecified (principal); D63.1 Anemia in chronic kidney disease
CPT/HCPCS: 36415; 82728; 82746; 83540; 83550; 85025

== ENCOUNTER → 2020-11-14 | Outpatient (CLI) | payer BC ==
[2020-11-14 16:14] LABS: Appearance,Urine Clear (Clear); Bilirubin,Urine Negative (Negative); Blood,Urine Negative (Negative); Color,Urine Colorless; Glucose,Urine (UA) Negative (Negative); Ketones,Urine Negative (Negative); Leukocyte Esterase,Urine Negative (Negative); Nitrite,Urine Negative (Negative); Protein,Urine Negative (Negative); Specific Gravity,Urine 1.003 (1.001-1.035); Urobilinogen,Urine <2.0 mg/dL (<2.0)
[2020-11-14 16:43] LABS: Creatinine,Urine Random 21.4 mg/dL; Protein/Creatinine Ratio,Urine 0.561
[2020-11-15 04:08] LABS: Basophils # (A) 0.04 X 10*3/uL (0.00-0.10); Basophils % (A) 0.4 %; Eosinophils # (A) 0.11 X 10*3/uL (0.04-0.35); Eosinophils % (A) 1.2 %; HCT 36.4 % (39.6-50.0); HGB 12.7 g/dL (13.0-17.0); Lymphocytes # (A) 1.11 X 10*3/uL (0.90-5.00); Lymphocytes % (A) 12.4 %; MCHC 34.9 g/dL (32.0-37.0); MCV 97.6 fL (80.0-97.0); Mean Platelet Volume 12.1 fL (9.5-12.2); Monocytes % (A) 6.7 %; Neutrophils # (A) 7.03 X 10*3/uL (1.80-7.70); Neutrophils % (A) 78.5 %; Platelet Count 130 X 10*3/uL (140-440); RBC 3.73 X 10*6/uL (4.40-5.60); RDW 15.5 % (11.5-14.5); WBC 8.96 X 10*3/uL (4.50-10.00)
[2020-11-15 07:09] LABS: % Iron Saturation 26.39 (15.00-50.00); African American GFR (CKD) 51.2 (60.0-200.0); Albumin 4.8 g/dL (3.80-4.90); Anion Gap 9.6 mmol/L (4.00-12.00); BUN/Creat Ratio 18.89 Ratio (12.00-20.00); Calcium 9.6 mg/dL (8.7-10.3); Carbon Dioxide 24.4 mmol/L (21.6-31.8); Magnesium 2.2 mg/dL (1.5-2.4); Non-African American GFR(CKD) 44.2 (60.0-200.0); Phosphorus 3.4 mg/dL (2.4-5.1); Potassium 4.4 mmol/L (3.5-5.5); Uric Acid 6.4 mg/dL (3.7-8.7)
[2020-11-15 07:32] LABS: Ferritin 1076.7 ng/mL (22.0-322.0)
== END | disposition home or self-care (01) ==
LOC: LABWHC1 14:41
PROVIDERS: ATTEND Nurse Practitioner Adult Health
DX: N18.30 Chronic kidney disease, stage 3 unspecified (principal); E55.9 Vitamin D deficiency, unspecified; D64.9 Anemia, unspecified; N25.81 Secondary hyperparathyroidism of renal origin; R80.9 Proteinuria, unspecified; M10.9 Gout, unspecified
CPT/HCPCS: 36415; 80048; 81003; 82040; 82306; 82570; 82728; 83540; 83550; 83735; 83970; 84100; 84156; 84550; 85025

== ENCOUNTER → 2021-03-25 | Outpatient (CLI) | payer BC ==
[2021-03-25 09:59] LABS: Appearance,Urine Clear (Clear); Bilirubin,Urine Negative (Negative); Blood,Urine Negative (Negative); Color,Urine Yellow; Glucose,Urine (UA) Negative (Negative); Ketones,Urine Negative (Negative); Leukocyte Esterase,Urine Negative (Negative); Nitrite,Urine Negative (Negative); PH, Urine 5.5 (5.0-8.0); Protein,Urine Negative (Negative); Specific Gravity,Urine 1.013 (1.001-1.035); Urobilinogen,Urine <2.0 mg/dL (<2.0)
[2021-03-25 10:26] LABS: Protein/Creatinine Ratio,Urine 0.057
[2021-03-25 15:00] LABS: Basophils # (A) 0.03 X 10*3/uL (0.00-0.10); Basophils % (A) 0.3 %; Eosinophils % (A) 2.2 %; HCT 40.2 % (39.6-50.0); HGB 14.5 g/dL (13.0-17.0); Lymphocytes # (A) 0.73 X 10*3/uL (0.90-5.00); Lymphocytes % (A) 7.9 %; MCH 33.8 pg (27.0-32.0); MCHC 36.1 g/dL (32.0-37.0); MCV 93.7 fL (80.0-97.0); Mean Platelet Volume 11.7 fL (9.5-12.2); Monocytes # (A) 0.45 X 10*3/uL (0.20-1.00); Monocytes % (A) 4.9 %; Neutrophils # (A) 7.77 X 10*3/uL (1.80-7.70); Neutrophils % (A) 84.1 %; Platelet Count 151 X 10*3/uL (140-440); RBC 4.29 X 10*6/uL (4.40-5.60); RDW 15.4 % (11.5-14.5); WBC 9.24 X 10*3/uL (4.50-10.00)
[2021-03-25 16:08] LABS: % Iron Saturation 35.38 (15.00-50.00); Magnesium 2.2 mg/dL (1.5-2.4); Phosphorus 2.6 mg/dL (2.4-5.1); Uric Acid 6.5 mg/dL (3.7-8.7)
[2021-03-25 16:23] LABS: African American GFR (CKD) 52.6 (60.0-200.0); Albumin 5.2 g/dL (3.8-4.9); Albumin/Globulin Ratio 2.81 (1.60-3.17); Anion Gap 13.6 mmol/L (10.00-18.00); BUN/Creat Ratio 14.69 Ratio (12.00-20.00); Blood Urea Nitrogen 25.7 mg/dL (9.0-27.0); Calcium 9.7 mg/dL (8.7-10.3); Carbon Dioxide 25.2 mmol/L (20.0-27.5); Globulin 1.9 g/dL (1.6-3.3); Non-African American GFR(CKD) 45.4 (60.0-200.0); Potassium 4.1 mmol/L (3.5-5.5); Total Bilirubin 2.3 mg/dL (0.30-1.20); Total Protein 7.1 g/dL (6.2-8.2)
[2021-03-26 01:23] LABS: Total Protein 24 Hour,Urine 3.9 mg/dL (0.0-165.0)
[2021-03-26 02:21] LABS: Total Volume 24 Hour,Urine 2700 mL
== END | disposition home or self-care (01) ==
LOC: LABWHC1 08:50
PROVIDERS: ATTEND Internal Medicine
DX: I12.9 Hypertensive chronic kidney disease with stage 1 through stage 4 chronic kidney disease, or unspecified chronic kidney disease (principal); N18.30 Chronic kidney disease, stage 3 unspecified; D64.9 Anemia, unspecified; N39.0 Urinary tract infection, site not specified; R80.9 Proteinuria, unspecified; N25.81 Secondary hyperparathyroidism of renal origin; E55.9 Vitamin D deficiency, unspecified; M10.9 Gout, unspecified
CPT/HCPCS: 36415; 80053; 81001; 81003; 81050; 82306; 82570; 82728; 83540; 83550; 83735; 83970; 84100; 84156; 84550; 85025

== ENCOUNTER → 2021-03-25 | Outpatient (CLI) | payer BC ==
--- NOTE | 2021-03-25 12:53 | US ---
EXAMINATION TYPE: US kidneys/renal and bladder DATE OF EXAM: 03/25/2021 COMPARISON: NONE CLINICAL HISTORY: N18.30 Chronic kidney disease, stage 3. EXAM MEASUREMENTS: Right Kidney: 8.5x5.0x4.4 cm Left Kidney: 11.9x4.9x4.6 cm Right Kidney: No hydronephrosis or masses seen Left Kidney: No hydronephrosis or masses seen Bladder: wnl Bilateral Jets seen: Yes IMPRESSION: 1. Normal renal ultrasound
== END | disposition home or self-care (01) ==
LOC: RADUSWWP 12:04
PROVIDERS: ATTEND Internal Medicine
DX: N18.30 Chronic kidney disease, stage 3 unspecified (principal)
CPT/HCPCS: 76770

== ENCOUNTER → 2021-08-28 | Outpatient (CLI) | payer BC ==
[2021-08-28 23:52] LABS: Uric Acid 6.2 mg/dL (3.7-8.7)
[2021-08-29 00:05] LABS: African American GFR (CKD) 58.6 (60.0-200.0); BUN/Creat Ratio 21.19 Ratio (12.00-20.00); Blood Urea Nitrogen 33.9 mg/dL (9.0-27.0); Calcium 9.5 mg/dL (8.7-10.3); Non-African American GFR(CKD) 50.6 (60.0-200.0)
== END | disposition home or self-care (01) ==
LOC: LABWHC1 14:45
PROVIDERS: ATTEND Nurse Practitioner Adult Health
DX: M10.9 Gout, unspecified (principal)
CPT/HCPCS: 36415; 80048; 84550

== ENCOUNTER → 2021-11-12 | Outpatient (CLI) | payer BC ==
[2021-11-12 15:57] LABS: Appearance,Urine Clear (Clear); Bilirubin,Urine Negative (Negative); Blood,Urine Negative (Negative); Color,Urine Colorless; Glucose,Urine (UA) Negative (Negative); Ketones,Urine Negative (Negative); Leukocyte Esterase,Urine Negative (Negative); Nitrite,Urine Negative (Negative); PH, Urine 5.5 (5.0-8.0); Protein,Urine Negative (Negative); Specific Gravity,Urine 1.005 (1.001-1.035); Urobilinogen,Urine <2.0 mg/dL (<2.0)
[2021-11-12 16:10] LABS: Creatinine,Urine Random 30.9 mg/dL; Protein/Creatinine Ratio,Urine 0.324
[2021-11-13 01:06] LABS: % Iron Saturation 32.37 (15.00-50.00); Uric Acid 7.2 mg/dL (3.7-8.7)
[2021-11-13 01:13] LABS: Basophils # (A) 0.03 X 10*3/uL (0.00-0.10); Basophils % (A) 0.4 %; Eosinophils % (A) 1.3 %; HCT 34.6 % (39.6-50.0); HGB 12.5 g/dL (13.0-17.0); Immature Grans, Automated 0.8 %; Lymphocytes # (A) 0.84 X 10*3/uL (0.90-5.00); Lymphocytes % (A) 11.2 %; MCH 34.3 pg (27.0-32.0); MCHC 36.1 g/dL (32.0-37.0); MCV 95.1 fL (80.0-97.0); Mean Platelet Volume 11.7 fL (9.5-12.2); Monocytes # (A) 0.53 X 10*3/uL (0.20-1.00); Monocytes % (A) 7.1 %; NRBC Per 100 WBC 0 /100 WBCS (0.0-0.0); Neutrophils # (A) 5.95 X 10*3/uL (1.80-7.70); Neutrophils % (A) 79.2 %; Platelet Count 129 X 10*3/uL (140-440); RBC 3.64 X 10*6/uL (4.40-5.60); RDW 15.7 % (11.5-14.5); WBC 7.51 X 10*3/uL (4.50-10.00)
[2021-11-13 01:20] LABS: Albumin 4.8 g/dL (3.8-4.9)
[2021-11-13 01:25] LABS: African American GFR (CKD) 56.5 (60.0-200.0); Anion Gap 13.6 mmol/L (10.00-18.00); BUN/Creat Ratio 15.64 Ratio (12.00-20.00); Blood Urea Nitrogen 25.8 mg/dL (9.0-27.0); Calcium 9.1 mg/dL (8.7-10.3); Carbon Dioxide 22.2 mmol/L (20.0-27.5); Non-African American GFR(CKD) 48.7 (60.0-200.0); Potassium 4.2 mmol/L (3.5-5.5)
== END | disposition home or self-care (01) ==
LOC: LABWHC1 14:38
PROVIDERS: ATTEND Internal Medicine Gastroenterology
DX: N18.32 Chronic kidney disease, stage 3b (principal); R77.8 Other specified abnormalities of plasma proteins
CPT/HCPCS: 36415; 80048; 81003; 82040; 82306; 82570; 82728; 83540; 83550; 83735; 83970; 84100; 84156; 84550; 85025

== ENCOUNTER → 2022-11-18 | Outpatient (CLI) | payer BC ==
[2022-11-18 19:53] LABS: Appearance,Urine Clear (Clear); Bilirubin,Urine Negative (Negative); Blood,Urine Negative (Negative); Color,Urine Yellow (Yellow); Ketones,Urine Negative (Negative); Nitrite,Urine Negative (Negative); PH, Urine 5.5; Specific Gravity,Urine 1.005 (1.001-1.030); Urobilinogen,Urine 0.2 E.U./DL
[2022-11-18 20:46] LABS: % Iron Saturation 35.48 (15.00-50.00); Iron 99 UG/DL (65-175); Phosphorus 2.8 mg/dL (2.4-5.1); Total Iron Binding Capacity 279 UG/DL (228-460); Uric Acid 6.9 mg/dL (3.7-8.7)
[2022-11-18 21:18] LABS: Albumin 5.1 d/dL (3.8-4.9); BUN/Creat Ratio 14.69 Ratio (12.00-20.00); Blood Urea Nitrogen 23.5 mg/dL (9.0-27.0); Calcium 9.3 mg/dL (8.7-10.3); Carbon Dioxide 25.5 mmol/L (21.6-31.8); Chloride 106 mmol/L (96-109); Glucose 88 mg/dL (70-110); Potassium 4.5 mmol/L (3.5-5.5); Sodium 142 mmol/L (135-145)
[2022-11-18 21:41] LABS: Basophils # (A) 0.03 X 10*3/uL (0.00-0.10); Basophils % (A) 0.4 %; Eosinophils # (A) 0.18 X 10*3/uL (0.04-0.35); Eosinophils % (A) 2.3 %; HCT 35.8 % (39.6-50.0); HGB 13.2 d/dL (13.0-17.0); Lymphocytes # (A) 0.91 X 10*3/uL (0.90-5.00); Lymphocytes % (A) 11.7 %; MCH 33.8 pg (27.0-32.0); MCHC 36.9 d/dL (32.0-37.0); MCV 91.6 FL (80.0-97.0); Mean Platelet Volume 11.8 FL (9.5-12.2); Monocytes # (A) 0.46 X 10*3/uL (0.20-1.00); Monocytes % (A) 5.9 %; NRBC Per 100 WBC 0 X 10*3/uL (0.00-0.01); Neutrophils # (A) 6.12 X 10*3/uL (1.80-7.70); Neutrophils % (A) 78.5 %; Platelet Count 143 X 10*3/uL (140-440); RBC 3.91 X 10*6/uL (4.40-5.60); WBC 7.79 X 10*3/uL (4.50-10.00)
== END | disposition home or self-care (01) ==
LOC: LABWHC1 15:35
PROVIDERS: ATTEND Internal Medicine
DX: E55.9 Vitamin D deficiency, unspecified (principal); N25.81 Secondary hyperparathyroidism of renal origin; M10.9 Gout, unspecified; N39.0 Urinary tract infection, site not specified; D63.1 Anemia in chronic kidney disease; N18.32 Chronic kidney disease, stage 3b; R80.9 Proteinuria, unspecified
CPT/HCPCS: 36415; 80048; 81003; 82040; 82306; 82728; 83540; 83550; 83735; 83970; 84100; 84550; 85025

== ENCOUNTER → 2023-02-25 | Outpatient (CLI) | payer BC ==
[2023-02-25 22:20] LABS: % Iron Saturation 37.63 (15.00-50.00)
[2023-02-26 02:54] LABS: Basophils # (A) 0.03 X 10*3/uL (0.00-0.10); Basophils % (A) 0.4 %; Eosinophils # (A) 0.22 X 10*3/uL (0.04-0.35); Eosinophils % (A) 2.6 %; HCT 40.2 % (39.6-50.0); HGB 14.5 g/dL (13.0-17.0); Lymphocytes # (A) 1.01 X 10*3/uL (0.90-5.00); Lymphocytes % (A) 11.9 %; MCHC 36.1 g/dL (32.0-37.0); MCV 94.1 FL (80.0-97.0); Mean Platelet Volume 11.8 FL (9.5-12.2); Monocytes # (A) 0.63 X 10*3/uL (0.20-1.00); Monocytes % (A) 7.4 %; NRBC Per 100 WBC 0 X 10*3/uL (0.00-0.01); Neutrophils # (A) 6.51 X 10*3/uL (1.80-7.70); Platelet Count 158 X 10*3/uL (140-440); RBC 4.27 X 10*6/uL (4.40-5.60); RDW 17.4 % (11.5-14.5); WBC 8.46 X 10*3/uL (4.50-10.00)
== END | disposition home or self-care (01) ==
LOC: LABWHC1 15:24
PROVIDERS: ATTEND Internal Medicine Gastroenterology
DX: R77.8 Other specified abnormalities of plasma proteins (principal)
CPT/HCPCS: 36415; 82728; 83540; 83550; 85025

== ENCOUNTER → 2023-06-20 | Outpatient (CLI) | payer BC ==
[2023-06-20 13:06] LABS: Basophils # (A) 0.04 X 10*3/uL (0.00-0.10); Basophils % (A) 0.5 %; Eosinophils # (A) 0.14 X 10*3/uL (0.04-0.35); Eosinophils % (A) 1.7 %; HCT 39.6 % (39.6-50.0); HGB 14.4 g/dL (13.0-17.0); Lymphocytes # (A) 0.76 X 10*3/uL (0.90-5.00); Lymphocytes % (A) 9.5 %; MCH 33.7 pg (27.0-32.0); MCHC 36.4 g/dL (32.0-37.0); MCV 92.7 FL (80.0-97.0); Mean Platelet Volume 11.7 FL (9.5-12.2); Monocytes # (A) 0.49 X 10*3/uL (0.20-1.00); Monocytes % (A) 6.1 %; NRBC Per 100 WBC 0 X 10*3/uL (0.00-0.01); Neutrophils # (A) 6.54 X 10*3/uL (1.80-7.70); Neutrophils % (A) 81.3 %; Platelet Count 158 X 10*3/uL (140-440); RBC 4.27 X 10*6/uL (4.40-5.60); RDW 16.6 % (11.5-14.5); WBC 8.04 X 10*3/uL (4.50-10.00)
[2023-06-20 13:21] LABS: Appearance,Urine Clear (Clear); Bilirubin,Urine Negative (Negative); Blood,Urine Negative (Negative); Color,Urine Yellow (Yellow); Ketones,Urine Negative (Negative); Nitrite,Urine Negative (Negative); Urobilinogen,Urine 0.2 E.U./DL
[2023-06-20 13:27] LABS: % Iron Saturation 37.63 (15.00-50.00); Iron 108 UG/DL (65-175); Magnesium 2.1 mg/dL (1.5-2.4); Phosphorus 2.3 mg/dL (2.4-5.1); Total Iron Binding Capacity 287 UG/DL (228-460); Uric Acid 6.3 mg/dL (3.7-8.7)
[2023-06-20 14:28] LABS: Albumin 4.9 g/dL (3.8-4.9); BUN/Creat Ratio 18.36 Ratio (12.00-20.00); Blood Urea Nitrogen 25.7 mg/dL (9.0-27.0); Calcium 9.5 mg/dL (8.7-10.3); Carbon Dioxide 24.7 mmol/L (21.6-31.8); Chloride 107 mmol/L (96-109); Glucose 102 mg/dL (70-110); Potassium 4.5 mmol/L (3.5-5.5); Sodium 143 mmol/L (135-145)
[2023-06-20 14:58] LABS: Creatinine,Urine Random 47.2 mg/dL; Protein/Creatinine Ratio,Urine 0.148
== END | disposition home or self-care (01) ==
LOC: LABWHC1 08:52
PROVIDERS: ATTEND Internal Medicine
DX: E55.9 Vitamin D deficiency, unspecified (principal); N25.81 Secondary hyperparathyroidism of renal origin; M10.9 Gout, unspecified; N39.0 Urinary tract infection, site not specified; N18.32 Chronic kidney disease, stage 3b
CPT/HCPCS: 36415; 80048; 81003; 82040; 82306; 82570; 82728; 83540; 83550; 83735; 83970; 84100; 84156; 84550; 85025

== ENCOUNTER → 2023-09-19 | Outpatient (CLI) | payer BC ==
[2023-09-19 23:33] LABS: Basophils # (A) 0.02 X 10*3/uL (0.00-0.10); Basophils % (A) 0.3 %; Eosinophils # (A) 0.09 X 10*3/uL (0.04-0.35); Eosinophils % (A) 1.4 %; HCT 37.8 % (39.6-50.0); HGB 13.6 g/dL (13.0-17.0); Lymphocytes # (A) 0.77 X 10*3/uL (0.90-5.00); Lymphocytes % (A) 11.6 %; MCH 33.3 pg (27.0-32.0); MCV 92.6 FL (80.0-97.0); Mean Platelet Volume 11.6 FL (9.5-12.2); Monocytes # (A) 0.43 X 10*3/uL (0.20-1.00); Monocytes % (A) 6.5 %; NRBC Per 100 WBC 0 X 10*3/uL (0.00-0.01); Neutrophils # (A) 5.29 X 10*3/uL (1.80-7.70); Neutrophils % (A) 79.4 %; Platelet Count 127 X 10*3/uL (140-440); RBC 4.08 X 10*6/uL (4.40-5.60); RDW 15.5 % (11.5-14.5); WBC 6.65 X 10*3/uL (4.50-10.00)
[2023-09-20 06:26] LABS: % Iron Saturation 31.5 (15.00-50.00)
== END | disposition home or self-care (01) ==
LOC: LABWHC1 09:23
PROVIDERS: ATTEND Internal Medicine Gastroenterology
DX: R77.8 Other specified abnormalities of plasma proteins (principal)
CPT/HCPCS: 36415; 82728; 83540; 83550; 85025

== ENCOUNTER → 2023-10-21 | Outpatient (CLI) | payer BC ==
--- NOTE | 2023-10-21 15:31 | US ---
EXAMINATION TYPE: US kidneys/renal and bladder DATE OF EXAM: 10/21/2023 COMPARISON: 03/24/21 CLINICAL INDICATION: Male, 47 years old with history of N18.32 CKD, STAGE 3B; CKD EXAM MEASUREMENTS: Right Kidney: 11.6x5.0x4.6 cm Left Kidney: 11.6x4.8x4.8 cm Right Kidney: thinning cortex , no masses, stones or hydronephrosis. Left Kidney: thinning cortex no masses, stones or hydronephrosis. Bladder: wnl Bilateral Jets seen: Yes There is no evidence for hydronephrosis at this point in time. No nephrolithiasis is seen. No tavon s are identified. The urinary bladder is anechoic. Bilateral ureteral jets are seen. exam limited by bowel gas IMPRESSION: Atrophy changes of the kidneys. No obstructive uropathy or calculus visualized.
[2023-10-21 15:44] LABS: Appearance,Urine Clear (Clear); Bilirubin,Urine Negative (Negative); Blood,Urine Negative (Negative); Color,Urine Yellow (Yellow); Ketones,Urine Negative (Negative); Nitrite,Urine Negative (Negative); PH, Urine 6.5; Specific Gravity,Urine 1.005 (1.001-1.030); Urobilinogen,Urine 0.2 E.U./DL
[2023-10-21 16:17] LABS: % Iron Saturation 37.45 (15.00-50.00); Iron 100 UG/DL (65-175); Phosphorus 2.7 mg/dL (2.4-5.1); Total Iron Binding Capacity 267 UG/DL (228-460); Uric Acid 6.5 mg/dL (3.7-8.7)
[2023-10-21 16:22] LABS: ALT 17 U/L (10-49); AST 22 U/L (14-35); Albumin 4.8 g/dL (3.8-4.9); Albumin/Globulin Ratio 2.67 Ratio (1.60-3.17); Alkaline Phosphatase 72 U/L (41-126); BUN/Creat Ratio 16.29 Ratio (12.00-20.00); Blood Urea Nitrogen 22.8 mg/dL (9.0-27.0); Calcium 9.1 mg/dL (8.7-10.3); Carbon Dioxide 23.8 mmol/L (21.6-31.8); Chloride 106 mmol/L (96-109); Globulin 1.8 g/dL (1.6-3.3); Glucose 98 mg/dL (70-110); Potassium 4.3 mmol/L (3.5-5.5); Sodium 141 mmol/L (135-145); Total Bilirubin 2.6 mg/dL (0.3-1.2); Total Protein 6.6 g/dL (6.2-8.2)
[2023-10-21 17:55] LABS: HCT 37.7 % (39.6-50.0); MCHC 37.1 g/dL (32.0-37.0); MCV 91.5 FL (80.0-97.0); Mean Platelet Volume 12.2 FL (9.5-12.2); NRBC Per 100 WBC 0 X 10*3/uL (0.00-0.01); Platelet Count 122 X 10*3/uL (140-440); RBC 4.12 X 10*6/uL (4.40-5.60); RDW 16.1 % (11.5-14.5); WBC 7.77 X 10*3/uL (4.50-10.00)
[2023-10-21 20:38] LABS: Microalbumin Creatinine Ratio <51 mg/g Cr (0-30); Urine Creatinine 23.4 mg/dL (39.0-259.0)
== END | disposition home or self-care (01) ==
LOC: RADUSWWP 11:04
PROVIDERS: ATTEND Internal Medicine
DX: N18.32 Chronic kidney disease, stage 3b (principal); N26.1 Atrophy of kidney (terminal)
CPT/HCPCS: 36415; 76770; 80053; 81003; 82043; 82306; 82570; 82728; 83540; 83550; 83735; 83883; 83970; 84100; 84166; 84550; 85027; 86334

== ENCOUNTER → 2024-05-17 | Outpatient (CLI) | payer BC ==
[2024-05-17 19:11] LABS: Microalbumin Creatinine Ratio <19 mg/g Cr (0-30); Urine Creatinine 63.5 mg/dL (39.0-259.0)
[2024-05-17 19:12] LABS: HGB 15.5 g/dL (13.0-17.0); MCH 33.5 pg (27.0-32.0); MCV 93.1 FL (80.0-97.0); Mean Platelet Volume 12.2 FL (9.5-12.2); NRBC Per 100 WBC 0 X 10*3/uL (0.00-0.01); Platelet Count 135 X 10*3/uL (140-440); RBC 4.62 X 10*6/uL (4.40-5.60); RDW 16.5 % (11.5-14.5); WBC 7.69 X 10*3/uL (4.50-10.00)
[2024-05-17 19:31] LABS: % Iron Saturation 32.86 (15.00-50.00); Iron 93 UG/DL (65-175); Magnesium 2.1 mg/dL (1.5-2.4); Phosphorus 3.2 mg/dL (2.4-5.1); Total Iron Binding Capacity 283 UG/DL (228-460)
[2024-05-17 19:35] LABS: Appearance,Urine Clear (Clear); Bilirubin,Urine Negative (Negative); Blood,Urine Negative (Negative); Color,Urine Yellow (Yellow); Ketones,Urine Negative (Negative); Nitrite,Urine Negative (Negative); Specific Gravity,Urine 1.015 (1.001-1.030); Urobilinogen,Urine 0.2 E.U./DL
[2024-05-17 19:44] LABS: ALT 20 U/L (10-49); AST 23 U/L (14-35); Albumin 4.9 g/dL (3.8-4.9); Albumin/Globulin Ratio 2.13 Ratio (1.60-3.17); Alkaline Phosphatase 80 U/L (41-126); BUN/Creat Ratio 18.38 Ratio (12.00-20.00); Blood Urea Nitrogen 29.4 mg/dL (9.0-27.0); Calcium 9.4 mg/dL (8.7-10.3); Carbon Dioxide 26.9 mmol/L (21.6-31.8); Chloride 104 mmol/L (96-109); Globulin 2.3 g/dL (1.6-3.3); Glucose 92 mg/dL (70-110); Potassium 4.5 mmol/L (3.5-5.5); Sodium 142 mmol/L (135-145); Total Bilirubin 2.3 mg/dL (0.3-1.2); Total Protein 7.2 g/dL (6.2-8.2)
== END | disposition home or self-care (01) ==
LOC: LABWHC1 11:26
PROVIDERS: ATTEND Internal Medicine
DX: E55.9 Vitamin D deficiency, unspecified (principal); N18.32 Chronic kidney disease, stage 3b; D64.9 Anemia, unspecified; N39.0 Urinary tract infection, site not specified; N25.81 Secondary hyperparathyroidism of renal origin; M10.9 Gout, unspecified; R80.9 Proteinuria, unspecified
CPT/HCPCS: 36415; 80053; 81003; 82043; 82306; 82570; 82728; 83540; 83550; 83735; 83970; 84100; 84550; 85027